=== PATIENT | male | born 1965 | race Caucasian/White ===

== ENCOUNTER 2023-07-12 16:15 | Outpatient (CLI) | payer OTHER, SELFPAY ==
--- NOTE | ~2023-07-12 | XR_ITS ---
EXAM: XR toe 1st RT min 2V DATE: 07/12/2023 16:36 HISTORY: Diabetes mellitus due to underlying condition; [facility] . COMPARISON: X-ray foot same date. FINDINGS: Normal mineralization. No fracture or dislocation. No lytic or blastic lesion. Moderate sc attered degenerative change. No erosion or periosteal change. Great toe soft tissue swelling. IMPRESSION: No radiographic evidence of osteomyelitis. Consider MRI of the foot or toes without and w ith contrast depending on the areas of clinical concern. Reviewed, dictated and finalized at location K. ER MACHINE OPERATOR IMPRESSION: No radiographic evidence of osteomyelitis. Consider MRI of the foot or toes without and with contrast depending on the areas of clinical concern.
== END 2023-07-12 16:16 | disposition home or self-care (01) ==
PROVIDERS: PCP Internal Medicine; Visit Provider Nurse Practitioner
DX: E08.621 Diabetes mellitus due to underlying condition with foot ulcer (principal); L97.519 Non-pressure chronic ulcer of other part of right foot with unspecified severity
CPT/HCPCS: 73630; 73660; 99215; G0463

== ENCOUNTER 2023-07-19 08:52 | Inpatient (IN) | payer OTHER, SELFPAY ==
[2023-07-19] VITALS (8 sets, daily range): BP systolic 116–169; BP diastolic 80–90; PULSE 76–121; RESP 14–30; TEMP 36.4–37.1; O2SAT 96–100
--- NOTE | ~2023-07-19 | US_ITS ---
EXAMINATION: US arterial ankle brachial ind DATE: 07/23/2023 10:29 INDICATION: Diabetic foot wound. TECHNIQUE: Segmental pressures and plethysmographic and Doppler waveforms of the brachial and lower e xtremity arteries were obtained. COMPARISON: None. FINDINGS: Right and left brachial artery pressures of 135 mm Hg and 139 mm Hg, respectively, are concordant (no rmal difference <= 30 mmHg). The right ankle-brachial index (TOBY) is 1.47 (normal >= 0.9-1.0). The right great toe-brachial index (TBI) is unable to be obtained due to ulceration with bandaging about the right great toe (normal >= 0.65). Arterial Doppler waveforms are triphasic with brisk systolic upstrokes at both right posterior tibial and dorsalis pedis arteries. The left TOBY is 1.45. The left TBI is 1.00. Arterial Doppler waveforms are triphasic at the left post erior tibial artery and biphasic at the left dorsalis pedis artery, both with brisk systolic upstroke s. IMPRESSION: 1. No significant arterial occlusive disease to either lower limb with normal bilateral ABIs and left TBI. Right TBI unable to be obtained due to ulceration and bandaging material at the right great toe . Reviewed, dictated and finalized at location B. RONMENT FRIENDLY LANDSCAPE DESIGNER IMPRESSION: 1. No significant arterial occlusive disease to either lower limb with normal b ilateral ABIs and left TBI. Right TBI unable to be obtained due to ulceration a nd bandaging material at the right great toe.
--- NOTE | ~2023-07-19 | XR_ITS ---
EXAMINATION: XR chest 1V portable INDICATION: Shortness of breath TECHNIQUE: Portable AP chest at 1651 hours COMPARISON: 01/03/2018 FINDINGS: There are minimal airspace opacities of the left lung base. A small left pleural effusion i s suggested. There is no pneumothorax. There are subtle bilateral perihilar opacities. The cardiomedi astinal silhouette is normal. IMPRESSION: 1. Subtle bilateral perihilar opacities and airspace opacities of the left lung base, consistent with atelectasis versus pneumonia versus pulmonary edema. 2. Possible small left pleural effusion. Reviewed, dictated and finalized at location F. DED BAND ASSEMBLER
--- NOTE | ~2023-07-19 | XR_ITS ---
EXAMINATION: XR toe 1st RT min 2V INDICATION: Swelling and infection of the right first toe TECHNIQUE: Three views of the right first toe are obtained. COMPARISON: 07/12/2023 FINDINGS: There is soft tissue swelling of the first toe. There is osteopenia in the proximal aspect of the first distal phalanx with possible associated transverse fracture. There is moderate osteoarth ritis of the first interphalangeal joint. IMPRESSION: 1. Findings suggestive of osteomyelitis of the first distal phalanx with possible nondisplaced transv erse fracture. Reviewed, dictated and finalized at location B. NING DESIGNER IMPRESSION: 1. Findings suggestive of osteomyelitis of the first distal phalanx with possib le nondisplaced transverse fracture.
--- NOTE | ~2023-07-19 | XR_ITS ---
EXAMINATION: XR chest 1V portable INDICATION: Changing oxygen requirements TECHNIQUE: Portable AP chest at 1755 hours COMPARISON: 1651 hours FINDINGS: There are increasing bilateral perihilar opacities. Left basilar airspace opacities are not significantly changed. No definite pleural effusion or pneumothorax identified. The cardiomediastina l silhouette is stable. IMPRESSION: 1. Increasing bilateral perihilar opacities and stable left basilar airspace opacities, possibly wors ening pulmonary edema versus atelectasis versus pneumonia. Reviewed, dictated and finalized at location F. Y MANAGER IMPRESSION: 1. Increasing bilateral perihilar opacities and stable left basilar airspace op acities, possibly worsening pulmonary edema versus atelectasis versus pneumonia .
--- NOTE | 2023-07-19 09:22 | ED.WOUNDLAC ---
HPI - Wound/Laceration General Chief Complaint: Wound/Laceration <Althea Corley PA-C - Last Filed: 07/19/23 15:44> Stated Complaint: foot wound <CARLOS Calderon Last Filed: 07/19/23 15:44> Time Seen by Provider: 07/19/23 08:59 <CARLOS Calderon Last Filed: 07/19/23 15:44> Source: patient and old records reviewed <CARLOS Calderon Last Filed: 07/19/23 15:44> Mode of arrival: ambulatory <CARLOS Calderon Last Filed: 07/19/23 15:44> Limitations: no limitations <CARLOS Calderon Last Filed: 07/19/23 15:44> History of Present Illness HPI narrative: Patient is a 57-year-old male, with past medical history of type 2 diabetes, Factor V Leiden on Xarelto, who presents the ED with report of wound to his right 1st toe. Patient reports he began seeing wound care for a wound to the plantar aspect of his right 1st toe last Wednesday. He has also seen his primary care doctor for this and was started on Keflex last week. Patient states he was unable to keep the antibiotics down this week, reporting he developed vomiting any time he took the medication. States wound has continued to worsen, become increasingly red, swollen, has had sanguinous drainage. C/o pain to toe. Sent from ED from wound care today for further evaluation. Denies pus-like drainage. Denies fevers. Denies numbness/tingling. States his sugars have been around 120. <CARLOS Calderon Last Filed: 07/19/23 15:44> Related Data Home Medications: Home Medications Medication Instructions Recorded Confirmed aspirin 81 mg tablet,delayed 81 mg PO DAILY 05/01/19 07/12/23 release (Adult Aspirin Regimen) omeprazole magnesium 20 mg 20 mg PO DAILY 05/01/19 07/12/23 tablet,delayed release (Prilosec OTC) multivitamin,ft-idnb-ysaptftx 1 tablet PO DAILY 05/02/19 07/12/23 (Complete Multivitamin tablet) potassium gluconate 595 mg (99 mg) 595 mg PO DAILY 07/07/23 07/12/23 tablet <Althea Corley PA-C - Last Filed: 07/19/23 15:44> Allergies/Adverse Reactions: Allergies Allergy/AdvReac Type Severity Reaction Status Date / Time cephalexin [From Keflex] AdvReac Vomiting Verified 07/19/23 11:19 <Althea Corley PA-C - Last Filed: 07/19/23 15:44> Review of Systems Review of Systems: CONSTITUTIONAL: Denies fever, chills, or sweats. CARDIOVASCULAR: Denies chest pain. RESPIRATORY: Denies dyspnea. GASTROINTESTINAL: See HPI SKIN: See HPI MUSCULOSKELETAL: See HPI NEUROLOGIC: Denies tingling, numbness, or weakness. <Althea Corley PA-C - Last Filed: 07/19/23 15:44> All systems reviewed & are unremarkable except as noted in HPI and below <Althea Corley PA-C - Last Filed: 07/19/23 15:44> [facility] Past Medical History Medical History: Medical History Diabetes mellitus Essential (primary) hypertension Factor 5 Leiden mutation, heterozygous Hx of pulmonary embolus Hyperglycemia Morbid obesity due to excess calories Rheumatoid arthritis <Althea Corley PA-C - Last Filed: 07/19/23 15:44> Surgical History Surgical History: Surgical History History of tonsillectomy <Althea Corley PA-C - Last Filed: 07/19/23 15:44> Family History Family History: Family History Father Pharyngeal malignant neoplasm Mother Hypertension Carcinoma of colon Chronic heart failure not affecting current episode of care Osteoarthritis <Althea Corley PA-C - Last Filed: 07/19/23 15:44> Social History Social History: Social History Social History: caffeine-none Smoking status: Never smoker Alcohol intake: current Drinks per wee
[2023-07-19 10:48] LABS: Basophils Absolute Auto 0.1 K/mm3 (0.0-0.1); Basophils Percent Auto 0.8 % (0.2-1.2); Eosinophils Percent Auto 0.1 % (0-4.4); Hematocrit 41.8 % (42.0-52.0); Hemoglobin 14.1 g/dL (14.0-18.0); Immature Granulocyte Absolute 0.03 K/mm3 (0.00-0.031); Immature Granulocyte Percent A 0.3 % (0-0.5); Lymphocytes Absolute Auto 1.15 K/mm3 (0.9-3.2); Lymphocytes Percent Auto 10.4 % (18.3-44.2); Mean Corpuscular HGB Conc 33.7 g/dl (32-36); Mean Corpuscular Hemoglobin 33.3 pg (26-34); Mean Corpuscular Volume 98.8 fl (80-100); Mean Platelet Volume 9.9 fl (7.4-10.4); Monocytes Absolute Auto 0.8 K/mm3 (0.1-0.6); Monocytes Percent Auto 7.2 % (2.6-8.5); Neutrophils Percent Auto 81.2 % (45.5-73.1); Platelet Count Result 338 k/mm3 (150-375); Red Blood Count 4.23 M/mm3 (4.6-6.20); Red Cell Distribution Width 12.1 % (11.5-14.5); White Blood Count 11.1 K/mm3 (4.5-10.0)
[2023-07-19] MEDS: SODIUM CHLORIDE 0.9% IV 1,000 ML 999 ML IV CONT ×2 (10:48→12:00)
[2023-07-19] MEDS: MORPHINE SULFATE (*CRX) 4 MG/ML INJ IV PUSH ×5 (10:49→23:17)
[2023-07-19] MEDS: ONDANSETRON INJ 4 MG/2 ML VIAL IV PUSH ×3 (10:49→19:48)
[2023-07-19 11:02] LABS: Lactic Acid Reflex 2.3 mmol/L (0.7-2.0)
[2023-07-19 11:12] LABS: Erythrocyte Sedimentation Rate 51 mm/hr (0-20)
[2023-07-19 11:14] LABS: Alanine Aminotransferase 52 U/L (6-50); Albumin Level 4.8 g/dL (3.5-5.1); Alkaline Phosphatase 95 U/L (38-126); Anion Gap 20 mmol/L (8-16); Aspartate Amino Transferase 88 U/L (17-59); Bilirubin,Total 1.6 mg/dL (0.2-1.3); Blood Urea Nitrogen 20 mg/dL (9-20); CRP 4.4 mg/dL (<1.0); Calcium 9.8 mg/dL (8.4-10.2); Carbon Dioxide 19 mmol/L (22-30); Chloride 90 mmol/L (98-107); Estimated CRCL calculation 110 ml/min; Estimated Glomerular Filt Rate > 60; Glucose 165 mg/dL (65-110); Potassium 6.6 mmol/L (3.4-5.0); Sodium 129 mmol/L (137-145)
[2023-07-19] MEDS: CEFEPIME 2 GM/NS 50 ML 2 GM/50 ML BAG IVPB ×2 (11:16→22:01)
--- NOTE | 2023-07-19 11:17 | ECG_ITS ---
Measurements Intervals [place] Rate: 120 P: 55 [place]: 191 QRS: -25 QRSD: 90 T: 63 QT: 273 QTc: 386 Interpretive Statements SINUS TACHYCARDIA LEFTWARD AXIS SUSPECT PREVIOUS ANTEROSEPTAL MA ABNORMAL ECG NO PREVIOUS ECG AVAILABLE FOR COMPARISON Electronically Signed On 07-19-2023 18:25:43 PHYSICAL THERAPY ASSISTANT by Amauri Nichols M.D.
[2023-07-19] MEDS: INSULIN HUMAN REGULAR (*BKC) 100 UNITS/ML 10 UNITS IV PUSH ×2 (11:58→16:14)
[2023-07-19] MEDS: CALCIUM GLUC 1,000 MG/NS 50 ML 1,000 MG/50 ML BAG 100 MG IVPB (12:00)
[2023-07-19] MEDS: SODIUM BICARBONATE 8.4% 50 MEQ/50 ML SYRINGE IV PUSH ×2 (12:03→16:14)
[2023-07-19] MEDS: DEXTROSE 50% 25 GM/50 ML SYRINGE IV PUSH ×2 (12:05→16:14)
[2023-07-19] MEDS: SODIUM ZIRCONIUM CYCLOSILICATE 10 GM POWD.PACK PO (12:10)
[2023-07-19] MEDS: metroNIDAZOLE 500 MG/ISO 100ML 500 MG/100 ML BAG 100 MG IVPB ×2 (12:13→19:48)
[2023-07-19 12:54] LABS: Hemoglobin A1C 6.1 % (<5.7)
--- NOTE | 2023-07-19 13:20 | PCWOUND ---
WOCN NOTE Patient was seen under outpatient wound center V# this morning 07/19/23. Full assessment noted there.
[2023-07-19] MEDS: VANCOMYCIN 1,250 MG/NS 250 ML 1,250 MG/250 ML BAG 166.67 MG IVPB ×2 (13:36→16:00)
[2023-07-19 13:46] LABS: Reflex Lactic Acid Yes or No Add Lactic
[2023-07-19 15:19] LABS: Lactic Acid 1.2 mmol/L (0.7-2.0)
--- NOTE | 2023-07-19 15:20 | PM.IMHP ---
H&P: HPI History of Present Illness Date/Time: 07/19/23 16:00 Chief Complaint: Right 1st toe wound. Narrative: This is a pleasant 57-year-old male with type 2 diabetes mellitus, hypertension, hyperlipidemia, factor 5 Leiden on rivaroxaban, and gastroesophageal reflux who presented to the emergency department from the wound clinic for evaluation of a right 1st toe wound. The patient provides the following history. He reports having a callused area on the right great toe for quite some time and about 2.5 weeks ago ?the skin and a blood blister formed.? Eventually the blister opened and he developed swelling about the toe. He saw his doctor and was prescribed Keflex which he has been taking however the last several days he has not been able to hold down the antibiotic as he has been vomiting almost as soon as he takes it. He was referred to wound clinic and he had a follow-up appointment with them today where he was found to have evidence of worsening infection. He denies fever but endorses sweats. He had loose stools earlier today. He has otherwise been feeling okay. No history of multidrug resistant organisms. In the ED: he was afebrile on arrival. He has periods of tachycardia but that seems to correlate with anxiety. Labs were significant for a WBC count of 11.1, ESR 51, sodium 129, potassium 6.6, chloride 90, carbon dioxide 19, glucose 165, hemoglobin A1c 6.1, lactic acid 2.3, total bilirubin 1.6, AST 80, ALT 52, CRP 4.4. X-ray of the right 1st toe showed findings suggestive of osteomyelitis of the 1st distal phalanx with possible nondisplaced transverse fracture. He was treated appropriately for hyperkalemia, received an IV fluid bolus, and was started on vancomycin, metronidazole, and cefepime for treatment of diabetic foot wound. He is being admitted in this setting for further treatment. Review of Systems Review of Systems: Twelve systems were reviewed. No cold or flu symptoms. No chest pain or shortness of breath. He has had some loose stools. No history of multidrug resistant organisms or C diff. He believes his diabetes is pretty well controlled and hemoglobin A1c today was 6.1%. Except as documented, all other systems were reviewed and are negative. [facility] Past Medical History Medical History (Updated 07/19/23 @ 21:00 by Josette Young PA-C) Chronic anticoagulation Essential (primary) hypertension Factor 5 Leiden mutation, heterozygous Gastroesophageal reflux disease Morbid obesity due to excess calories Pulmonary emboli Type 2 diabetes mellitus Surgical History Surgical History History of tonsillectomy Family History Family History Father Pharyngeal malignant neoplasm Mother Hypertension Carcinoma of colon Chronic heart failure not affecting current episode of care Osteoarthritis Social History Social History (Updated 07/19/23 @ 20:57 by Josette Young PA-C) Social History: Surrogate medical decision maker: Cuate Bolanos, friend. Code status: Full code. Smoking status: Never smoker Alcohol intake: current Drinks per week: 2 Alcohol use details: socially- [place] Substance use: never Do You Feel Safe in your Home?: Yes Lack of Transportation: No Lack of Food: Never True Current Housing: I Have Housing Concerned About Future Housing: No Difficulty Paying Gas/Electric Bills: No Difficulty Paying for Meds: No Currently Unemployed: No Education: Master's Degree or Higher Difficulty w/ Childcare or Family Care: No Additional living arrangements comments: Lives in [place]. 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 Spiritual care concerns: No Meds Home Medications and Allergies Home Medications Medication Instructions Recorded Confirmed Type aspirin 81 mg tablet,delayed 81 m
[2023-07-19 15:22] LABS: Anion Gap 14 mmol/L (8-16); Blood Urea Nitrogen 20 mg/dL (9-20); Calcium 9.3 mg/dL (8.4-10.2); Carbon Dioxide 20 mmol/L (22-30); Chloride 95 mmol/L (98-107); Estimated CRCL calculation 136 ml/min; Estimated Glomerular Filt Rate > 60; Glucose 159 mg/dL (65-110); Potassium 6.4 mmol/L (3.4-5.0); Sodium 129 mmol/L (137-145)
[2023-07-19] MEDS: ALBUTEROL SULFATE NEB 2.5 MG/3 ML INH INHALATION (16:10)
--- NOTE | 2023-07-19 19:44 | ADMGEN ---
This patient, Marc Haddad, was admitted to [facility] Surg Room 324-01. Patient/family oriented to hospital policies and general routines including ID bracelet, bed and alarms, visiting hours, pain management, procedures, bathroom and other care routines, personal items, smoking policy, room service/diet, and visiting hours. Information on how to activate the Rapid Response Team has been discussed. Patient/Family are encouraged to report perceived risks to care and to ask questions if they do not understand what they are told or what they should do.
[2023-07-19 20:07] LABS: Glucose Point of Care 183 mg/dl (65-105)
[2023-07-19 20:28] LABS: Anion Gap 14 mmol/L (8-16); Blood Urea Nitrogen 19 mg/dL (9-20); Calcium 9.1 mg/dL (8.4-10.2); Carbon Dioxide 21 mmol/L (22-30); Chloride 94 mmol/L (98-107); Estimated CRCL calculation 136 ml/min; Estimated Glomerular Filt Rate > 60; Glucose 167 mg/dL (65-110); Potassium 5.6 mmol/L (3.4-5.0); Sodium 129 mmol/L (137-145)
[2023-07-19] MEDS: RIVAROXABAN 20 MG TABLET PO (21:43)
[2023-07-19] MEDS: buPROPion HCL SR (12 HR) 150 MG TAB PO (21:43)
[2023-07-19] MEDS: SODIUM CHLORIDE 0.9% IV 1,000 ML 150 ML IV CONT (21:43)
[2023-07-19] MEDS: hydrOXYzine HCL 25 MG TABLET PO (21:48)
[2023-07-19] MEDS: SIMVASTATIN 20 MG TABLET PO (22:06)
[2023-07-19] MEDS: VANCOMYCIN 1,500 MG/NS 500 ML 1,500 MG/500 ML BAG 250 MG IVPB (23:17)
[2023-07-20] VITALS (9 sets, daily range): BP systolic 127–151; BP diastolic 80–88; PULSE 98–113; RESP 18–20; TEMP 36.2–36.7; O2SAT 91–95
[2023-07-20] MEDS: MORPHINE SULFATE (*CRX) 4 MG/ML INJ IV PUSH ×8 (02:26→22:15)
[2023-07-20] MEDS: metroNIDAZOLE 500 MG/ISO 100ML 500 MG/100 ML BAG 100 MG IVPB ×3 (03:29→20:06)
[2023-07-20 06:51] LABS: Hematocrit 35.8 % (42.0-52.0); Hemoglobin 11.9 g/dL (14.0-18.0); Mean Corpuscular HGB Conc 33.2 g/dl (32-36); Mean Corpuscular Hemoglobin 33.6 pg (26-34); Mean Corpuscular Volume 101.1 fl (80-100); Mean Platelet Volume 10.1 fl (7.4-10.4); Platelet Count Result 208 k/mm3 (150-375); Red Blood Count 3.54 M/mm3 (4.6-6.20); White Blood Count 6.2 K/mm3 (4.5-10.0)
[2023-07-20 07:03] LABS: Alanine Aminotransferase 44 U/L (6-50); Albumin Level 4.2 g/dL (3.5-5.1); Alkaline Phosphatase 68 U/L (38-126); Anion Gap 8 mmol/L (8-16); Aspartate Amino Transferase 70 U/L (17-59); Bilirubin,Total 1.1 mg/dL (0.2-1.3); Blood Urea Nitrogen 15 mg/dL (9-20); Calcium 8.7 mg/dL (8.4-10.2); Carbon Dioxide 27 mmol/L (22-30); Chloride 95 mmol/L (98-107); Estimated CRCL calculation 136 ml/min; Estimated Glomerular Filt Rate > 60; Glucose 130 mg/dL (65-110); Magnesium 1.7 mg/dL (1.6-2.3); Potassium 4.7 mmol/L (3.4-5.0); Sodium 130 mmol/L (137-145)
--- NOTE | 2023-07-20 07:31 | PM.CNOR ---
Assessment and Plan Assessment and plan (1) Diabetic infection of right foot: Code(s): E11.628 - Type 2 diabetes mellitus with other skin complications; L08.9 - Local infection of the skin and subcutaneous tissue, unspecified Status: Acute (2) Osteomyelitis of great toe of right foot: Code(s): M86.9 - Osteomyelitis, unspecified Status: Acute Assessment and Plan: New patient evaluation for chief complaint right hallux infection. History, physical exam and radiographs reviewed with the patient. Osteomyelitis distal phalanx with soft tissue surrounding infection of the hallux. Discussed the condition, nature, etiology and course of natural history with the patient. Treatment options including surgical and nonoperative treatment were reviewed. Risks and benefits of each as well as alternatives reviewed. The patient's questions were answered. Conservative treatment Wound care. started on IV antibiotics. Recommend debridement of osteomyelitis right hallux which will require amputation of the distal portion. Proceed when medically stable. Discussed nonoperative and operative treatment options with the patient. Risks and benefits of each as well as alternatives were reviewed. All of the patient's questions were answered. The risks of surgery reviewed including but not limited to: Neurovascular damage, wound complication, infection, blood clot, pulmonary embolus, stroke, myocardial infarction, and anesthetic risks up to and including . Continued pain and possible dysfunction were explained. Specific risks of the procedure including later recurrence of deformity. No guarantees were offered. If hardware used, discussed risk of failure/ breakage and possible need for removal. If complications occur, the patient understands the need for further treatment, possible further surgery. Patient verbalizes understanding and wishes to proceed. PLAN: debridement right hallux with amputation. (3) Factor 5 Leiden mutation, heterozygous: Code(s): D68.51 - Activated protein C resistance Status: Acute Assessment and Plan: On chronic anticoagulation History of Present Illness HPI Consult date: 07/20/23 Requesting physician: Althea Corley PA-C Chief complaint: Osteomyelitis R 1st Toe/DM/Hyperkalemia/Hyponatrem Narrative: 57-year-old with diabetes, peripheral neuropathy, lower extremity varicose veins worsening right hallux infection over the past week. Right hallux swelling developed over the past week. Difficulty to tolerating oral antibiotics. Was evaluated by Wound Care yesterday and referred to the emergency room as his toe was worsening. Minimal pain. Current symptoms: Reports drainage and ulceration Location: toe Duration: 4-7 days Pain scale (0-10): 1 Review of Systems Constitutional: Constitutional: Denies fever(s) Eyes: Eyes: Denies blurry vision ENT: Reports Normal hearing present Cardiovascular: Cardiovascular: Denies chest pain and Denies dyspnea Respiratory: Respiratory: Denies dyspnea and Denies wheezing Gastrointestinal: Gastrointestinal: Denies abdominal pain Genitourinary: Genitourinary: Denies urinary urgency Musculoskeletal: Musculoskeletal: Reports as per HPI and Denies numbness Integumentary/Breasts: Skin/Breast: Denies changing lesions and Denies sores Neurologic: Reports Normal hearing present, Denies behavioral changes, Denies confusion, Denies numbness and Denies convulsions Psychiatric: Psychiatric: Denies behavioral changes, Denies confusion and Denies hallucinations Endocrine: Endocrine: Denies heat intolerance Hematologic/Lymphatic: Hematologic/Lymphatic: Denies easy bleeding Allergic/Immunologic: Allergic/Immunologic: Denies wheezing PMFSH Past Medical History Medical History Chronic anticoagulation Essential (primary) hypertension Factor 5 Leiden mutation, heterozygous Gastro
[2023-07-20] MEDS: SODIUM CHLORIDE 0.9% IV 1,000 ML 150 ML IV CONT (07:50)
[2023-07-20] MEDS: ONDANSETRON INJ 4 MG/2 ML VIAL IV PUSH (07:51)
[2023-07-20 07:56] LABS: Glucose Point of Care 150 mg/dl (65-105)
[2023-07-20] MEDS: ASPIRIN 81 MG ENTERIC TABLET PO (08:52)
[2023-07-20] MEDS: PANTOPRAZOLE 40 MG TABLET PO (08:52)
[2023-07-20] MEDS: buPROPion HCL SR (12 HR) 150 MG TAB PO ×2 (10:21→20:06)
[2023-07-20 11:47] LABS: Glucose Point of Care 151 mg/dl (65-105)
[2023-07-20] MEDS: CEFEPIME 2 GM/NS 50 ML 2 GM/50 ML BAG IVPB ×2 (13:49→22:15)
[2023-07-20] MEDS: VANCOMYCIN 1,500 MG/NS 500 ML 1,500 MG/500 ML BAG 250 MG IVPB (13:51)
--- NOTE | 2023-07-20 15:56 | PM.IMPN ---
Progress Note: A&P Assessment and Plan (1) Sepsis: Code(s): A41.9 - Sepsis, unspecified organism Status: Acute Assessment and Plan: -sepsis without shock -leukocytosis and lactic acidosis resolved (2) Cellulitis of great toe of right foot: Code(s): L03.031 - Cellulitis of right toe Status: Acute Assessment and Plan: -continue antibiotics. Follow-up blood cultures and wound cultures. (3) Osteomyelitis of great toe of right foot: Code(s): M86.9 - Osteomyelitis, unspecified Status: Acute Assessment and Plan: -follow-up cultures and tailor antibiotic plan accordingly. -currently on metronidazole vancomycin and cefepime. (4) Diabetic infection of right foot: Code(s): E11.628 - Type 2 diabetes mellitus with other skin complications; L08.9 - Local infection of the skin and subcutaneous tissue, unspecified Status: Acute Assessment and Plan: -NPO midnight. Go for debridement on 07/20 at 2:30 p.m. -appreciate orthopedic recommendations. (5) Type 2 diabetes mellitus: Code(s): E11.9 - Type 2 diabetes mellitus without complications Status: Acute Assessment and Plan: -hemoglobin A1c 6.1% on 07/19/2023 -sugars controlled -continue Accu-Cheks with hypoglycemia protocol and insulin sliding scale. (6) Lactic acidosis: Code(s): E87.20 - Acidosis, unspecified Status: Acute Assessment and Plan: Resolved (7) Gastroesophageal reflux disease: Code(s): K21.9 - Gastro-esophageal reflux disease without esophagitis Status: Acute Assessment and Plan: Continue Protonix (8) Hyponatremia: Code(s): E87.1 - Hypo-osmolality and hyponatremia Status: Acute Assessment and Plan: -slightly improved. Continue to monitor (9) Hyperkalemia: Code(s): E87.5 - Hyperkalemia Status: Acute Assessment and Plan: -resolved (10) Factor 5 Leiden mutation, heterozygous: Code(s): D68.51 - Activated protein C resistance Status: Acute Assessment and Plan: -on heparin GTT. Transition back to rivaroxaban when procedure completed. Aspirin on hold as well (11) Essential (primary) hypertension: Code(s): I10 - Essential (primary) hypertension Status: Acute Assessment and Plan: -controlled. -home dose lisinopril 20 mg daily on hold. (12) Elevated LFTs: Code(s): R79.89 - Other specified abnormal findings of blood chemistry Status: Acute Assessment and Plan: -trending down. Continue to monitor Plan This is a 57-year-old male with a history of obesity, [id number] type 2 diabetes mellitus, hypertension, hyperlipidemia, factor 5 laden and history of PE on rivaroxaban, GERD, presenting from the wound clinic for evaluation of a right foot wound. He is found to have osteomyelitis with the right 1st distal phalanx. Admitted on 07/19 for further management. FEN: Normal saline 100 cc/hour. Cardiac diabetic diet and NPO at midnight. GI prophylaxis: Continue home dose Protonix DVT prophylaxis: Heparin GTT started. Transition to his home dosing rivaroxaban postprocedure when okay with Orthopedic surgery. Lines: Peripheral IV Code Status: Full code Dispo: Stable Subjective Date/time seen: 07/20/23 15:56 Interval history: No acute overnight events. The patient reports good pain control with the morphine p.r.n.. He otherwise reports feeling weak. Review of Systems Review of Systems: All systems reviewed & are unremarkable except as noted in HPI and below (Subjective) Exam Const: General: comfortable and no acute distress Other: A&O x4. Obese. Eyes: Pupils: Equal, round and reactive pupils present Neck: Neck: supple Resp: Effort & Inspection: normal respiratory effort Auscultation: clear to auscultation bilaterally Cardio: Rate: regular rate Rhythm: regular rhythm GI: GI Palp: Yes Soft to palpation and
[2023-07-20] MEDS: SODIUM CHLORIDE 0.9% IV 1,000 ML 100 ML IV CONT (16:28)
[2023-07-20 17:09] LABS: Glucose Point of Care 124 mg/dl (65-105)
[2023-07-20 18:56] LABS: INR 1.5; Partial Thromboplastin Time 43.3 SECONDS (22.3-36.8); Prothrombin Time 19.4 Seconds (11.1-14.7)
[2023-07-20 19:58] LABS: Glucose Point of Care 152 mg/dl (65-105)
[2023-07-20] MEDS: HEPARIN SOD/D5W 100 UNITS/ML 25,000 UNITS/250 ML BAG 15 UNITS IV CONT (20:05)
[2023-07-20] MEDS: SIMVASTATIN 20 MG TABLET PO (20:06)
[2023-07-20] MEDS: hydrOXYzine HCL 25 MG TABLET PO (20:45)
[2023-07-20 23:49] LABS: Vancomycin Trough 12.6 ug/mL (10.0-20.0)
[2023-07-21] VITALS (22 sets, daily range): BP systolic 99–159; BP diastolic 70–93; PULSE 91–134; RESP 16–34; TEMP 36.4–37.4; O2SAT 84–100; BMI 40.9
[2023-07-21] MEDS: MORPHINE SULFATE (*CRX) 4 MG/ML INJ IV PUSH ×5 (00:16→10:25)
[2023-07-21] MEDS: VANCOMYCIN 1,750 MG/NS 500 ML 1,750 MG/500 ML BAG 250 MG IVPB ×2 (00:38→13:57)
[2023-07-21 02:30] LABS: Basophils Absolute Auto 0.1 K/mm3 (0.0-0.1); Basophils Percent Auto 1.2 % (0.2-1.2); Eosinophils Absolute Auto 0.1 K/mm3 (0-0.3); Eosinophils Percent Auto 2.4 % (0-4.4); Hematocrit 33.1 % (42.0-52.0); Hemoglobin 10.9 g/dL (14.0-18.0); Immature Granulocyte Absolute 0.01 K/mm3 (0.00-0.031); Immature Granulocyte Percent A 0.2 % (0-0.5); Lymphocytes Absolute Auto 1.42 K/mm3 (0.9-3.2); Lymphocytes Percent Auto 28.6 % (18.3-44.2); Mean Corpuscular HGB Conc 32.9 g/dl (32-36); Mean Corpuscular Hemoglobin 33.1 pg (26-34); Mean Corpuscular Volume 100.6 fl (80-100); Mean Platelet Volume 9.6 fl (7.4-10.4); Monocytes Absolute Auto 0.4 K/mm3 (0.1-0.6); Monocytes Percent Auto 8.9 % (2.6-8.5); Neutrophils Absolute Auto 2.9 K/mm3 (1.3-6.7); Neutrophils Percent Auto 58.7 % (45.5-73.1); Platelet Count Result 162 k/mm3 (150-375); Red Blood Count 3.29 M/mm3 (4.6-6.20); Red Cell Distribution Width 11.9 % (11.5-14.5)
[2023-07-21 02:40] LABS: Anion Gap 7 mmol/L (8-16); Blood Urea Nitrogen 10 mg/dL (9-20); Calcium 8.2 mg/dL (8.4-10.2); Carbon Dioxide 26 mmol/L (22-30); Chloride 99 mmol/L (98-107); Estimated CRCL calculation 136 ml/min; Estimated Glomerular Filt Rate > 60; Glucose 123 mg/dL (65-110); Magnesium 1.6 mg/dL (1.6-2.3); Potassium 4.4 mmol/L (3.4-5.0); Sodium 132 mmol/L (137-145)
[2023-07-21 02:58] LABS: Partial Thromboplastin Time 34.2 SECONDS (22.3-36.8)
[2023-07-21] MEDS: HEPARIN SODIUM 5,000 UNITS/ML VIAL 9000 UNITS IV PUSH (03:15)
[2023-07-21] MEDS: metroNIDAZOLE 500 MG/ISO 100ML 500 MG/100 ML BAG 100 MG IVPB ×3 (03:16→21:03)
[2023-07-21] MEDS: SODIUM CHLORIDE 0.9% IV 1,000 ML 100 ML IV CONT ×2 (04:47→12:40)
[2023-07-21 08:06] LABS: Glucose Point of Care 129 mg/dl (65-105)
--- NOTE | 2023-07-21 09:05 | WPDHPUPDATE1 ---
History and Physical Update Update Date/Time: 07/21/23 09:05 History and Physical has been reviewed, including an updated exam of the patient. There are NO changes in the patient's condition. Risks, benefits, and alternatives have been discussed and questions answered. Patient agrees to proceed with procedure.
[2023-07-21 09:43] LABS: Partial Thromboplastin Time 66.5 SECONDS (22.3-36.8)
--- NOTE | 2023-07-21 09:53 | PM.IMPN ---
Progress Note: A&P Assessment and Plan (1) Sepsis: Code(s): A41.9 - Sepsis, unspecified organism Status: Acute Assessment and Plan: -sepsis without shock -leukocytosis and lactic acidosis resolved (2) Cellulitis of great toe of right foot: Code(s): L03.031 - Cellulitis of right toe Status: Acute Assessment and Plan: -continue antibiotics. Follow-up blood cultures and wound cultures. (3) Osteomyelitis of great toe of right foot: Code(s): M86.9 - Osteomyelitis, unspecified Status: Acute Assessment and Plan: -follow-up cultures and tailor antibiotic plan accordingly. -currently on metronidazole vancomycin and cefepime. (4) Diabetic infection of right foot: Code(s): E11.628 - Type 2 diabetes mellitus with other skin complications; L08.9 - Local infection of the skin and subcutaneous tissue, unspecified Status: Acute Assessment and Plan: -NPO midnight, go for debridement on 07/21 at 2:30 p.m. -appreciate orthopedic recommendations. (5) Type 2 diabetes mellitus: Code(s): E11.9 - Type 2 diabetes mellitus without complications Status: Acute Assessment and Plan: -hemoglobin A1c 6.1% on 07/19/2023 -sugars controlled -continue Accu-Cheks with hypoglycemia protocol and insulin sliding scale. (6) Lactic acidosis: Code(s): E87.20 - Acidosis, unspecified Status: Acute Assessment and Plan: Resolved (7) Gastroesophageal reflux disease: Code(s): K21.9 - Gastro-esophageal reflux disease without esophagitis Status: Acute Assessment and Plan: Continue Protonix (8) Hyponatremia: Code(s): E87.1 - Hypo-osmolality and hyponatremia Status: Acute Assessment and Plan: -slightly improved. Continue to monitor (9) Hyperkalemia: Code(s): E87.5 - Hyperkalemia Status: Acute Assessment and Plan: -resolved (10) Factor 5 Leiden mutation, heterozygous: Code(s): D68.51 - Activated protein C resistance Status: Acute Assessment and Plan: -on heparin GTT. Transition back to rivaroxaban when procedure completed. Aspirin on hold as well (11) Essential (primary) hypertension: Code(s): I10 - Essential (primary) hypertension Status: Acute Assessment and Plan: -controlled. -home dose lisinopril 20 mg daily on hold. (12) Elevated LFTs: Code(s): R79.89 - Other specified abnormal findings of blood chemistry Status: Acute Assessment and Plan: -trending down. Continue to monitor Plan FEN: Normal saline 100 cc/hour. Cardiac/diabetic diet and NPO for OR 07/21 GI prophylaxis: Continue home dose Protonix DVT prophylaxis: Heparin GTT started. Transition to his home dosing rivaroxaban postprocedure when okay with Orthopedic surgery. Lines: Peripheral IV Code Status: Full code Dispo: Stable Subjective Date/time seen: 07/21/23 09:53 Interval history: 57-year-old male with a history of obesity, syo-oqnarff-llcnwlagd type 2 diabetes mellitus, hypertension, hyperlipidemia, factor 5 laden and history of PE on rivaroxaban, GERD, presenting from the wound clinic for evaluation of a right foot wound. He is found to have osteomyelitis with the right 1st distal phalanx. Admitted on 07/19 for further management. No overnight events noted. No chest pain or shortness of breath. No nausea, vomiting or diarrhea. No fevers or chills. Review of Systems Review of Systems: 12 point review of systems was assessed and was negative except as noted in the HPI Exam Narrative: General: No acute distress, alert and oriented per baseline HEENT: Atraumatic, normocephalic, mucous membranes moist CV: Regular rate and rhythm, S1, S2 Lungs: Clear to auscultation bilaterally, no rales or crackles noted, no wheezes, good air entry Abdomen: Soft, nontender, nondistended Extremitie
[2023-07-21] MEDS: CEFEPIME 2 GM/NS 50 ML 2 GM/50 ML BAG IVPB ×2 (10:23→23:28)
[2023-07-21] MEDS: buPROPion HCL SR (12 HR) 150 MG TAB PO ×2 (10:24→21:10)
[2023-07-21 11:41] LABS: Glucose Point of Care 132 mg/dl (65-105)
[2023-07-21] MEDS: LACTATED RINGERS 1,000 ML 30 ML IV CONT ×2 (13:40→15:45)
--- NOTE | 2023-07-21 14:14 | WPDANESEPPF ---
Anes - Initial Pre Proc Eval Procedure: Operation Date: 07/21/23 14:30 Proposed Procedures p Debridement Right Hallux with Amputation - Lamin Jackson MD Date/Time: 07/21/23 14:14 Surgeon: Marva Mcguire MD Pre Op Diagnosis: Osteomyelitis R 1st Toe/DM/Hyperkalemia/Hyponatrem Patient Data Age: 57 Gender: M Height: 1.91 m Weight: 150 kg Last Vital Signs Temp 36.6 C 07/21/23 06:25 Pulse 95 07/21/23 06:25 Resp 20 07/21/23 06:25 BP 159/93 H 07/21/23 06:25 Pulse Ox 93 07/21/23 06:25 O2 Del Method Room Air 07/20/23 08:00 Allergies Allergy/AdvReac Type Severity Reaction Status Date / Time cephalexin [From Keflex] AdvReac Vomiting Verified 07/19/23 11:19 Home Medications Medication Instructions Recorded Confirmed Type aspirin 81 mg tablet,delayed 81 mg PO DAILY 05/01/19 07/19/23 History release (Adult Aspirin Regimen) omeprazole magnesium 20 mg 20 mg PO DAILY 05/01/19 07/19/23 History tablet,delayed release (Prilosec OTC) multivitamin,rx-cfsl-oroxatbj 1 tablet PO DAILY 05/02/19 07/19/23 History (Complete Multivitamin tablet) simvastatin 20 mg tablet 20 mg PO DAILY #90 tabs 10/05/22 07/19/23 Rx metformin 1,000 mg tablet 1,000 mg PO BID #180 tabs 01/08/23 07/19/23 Rx potassium gluconate 595 mg (99 mg) 595 mg PO DAILY 07/07/23 07/19/23 History tablet tirzepatide 7.5 mg/0.5 mL 7.5 mg (0.5 mL) subcut WEEKLY #2 mL 07/07/23 07/19/23 Rx subcutaneous pen injector (Maneunluther) bupropion HCl 150 mg tablet,12 hr 150 mg PO BID 07/19/23 07/19/23 History sustained-release hydroxyzine HCl 25 mg tablet 25 mg PO BID PRN Anxiety 07/19/23 07/19/23 History lisinopril 20 mg tablet 20 mg PO DAILY 07/19/23 07/19/23 History rivaroxaban 20 mg tablet (Xarelto) 20 mg PO DAILY 07/19/23 07/19/23 History Laboratory Tests 07/20/23 07/20/23 07/20/23 16:28 17:59 19:53 WBC RBC Hgb Hct MCV MCH MCHC RDW Plt Count MPV Immature Gran % (Auto) Neut % (Auto) Lymph % (Auto) [place] % (Auto) Eos % (Auto) Baso % (Auto) Lymph # (Auto) [place] # (Auto) Eos # (Auto) Baso # (Auto) Abs Immat Gran (auto) Absolute Neuts (auto) Absolute Nucleated RBC Nucleated RBC % PT 19.4 H Seconds (11.1-14.7) INR 1.5 APTT 43.3 H SECONDS (22.3-36.8) Sodium Potassium Chloride Carbon Dioxide Anion Gap BUN Creatinine Estim Creat Clear Calc Estimated GFR Glucose POC Capillary Glucose 124 H mg/dl 152 H mg/dl (65-105) (65-105) Calcium Magnesium Vancomycin Trough 07/20/23 07/21/23 07/21/23 22:57 02:25 07:38 WBC 5.0 K/mm3 (4.5-10.0) RBC 3.29 L M/mm3 (4.6-6.20) Hgb 10.9 L g/dL (14.0-18.0) Hct 33.1 L % (42.0-52.0) MCV 100.6 H fl (80-100) MCH 33.1 pg (26-34) MCHC 32.9 g/dl (32-36) RDW 11.9 % (11.5-14.5) Plt Count 162 k/mm3 (150-375) MPV 9.6 fl (7.4-10.4) Immature Gran % (Auto) 0.2 % (0-0.5) Neut % (Auto) 58.7 % (45.5-73.1) Lymph % (Auto) 28.6 % (18.3-44.2) [place] % (Auto) 8.9 H % (2.6-8.5) Eos % (Auto) 2.4 % (0-4.4) Baso % (Auto) 1.2 % (0.2-1.2) Lymph # (Auto) 1.42 K/mm3 (0.9-3.2) [place] # (Auto) 0.4 K/mm3 (0.1-0.6) Eos # (Auto) 0.1 K/mm3 (0-0.3) Baso # (Auto) 0.1 K/mm3 (0.0-0.1) Abs Immat Gran (auto) 0.01 K/mm3 (0.00-0.031) Absolute Neuts (auto) 2.9 K/mm3 (1.3-6.7)
[2023-07-21] MEDS: BUPivacaine HCL 0.5% 10 ML AMP 20 ML INFILTRATE (15:22)
--- NOTE | 2023-07-21 15:58 | W.PM.PROC2 ---
Procedure Note - Detailed Date of Procedure 07/21/23 Pre-op Diagnosis Osteomyelitis R 1st Toe/DM/Hyperkalemia/Hyponatrem Post-op Diagnosis Same Procedure Performed Right hallux amputation, excisional debride diabetic ulcer right foot Surgeon Lamin Jackson MD Fleshing Machine Operator 1st assignment desk assistant Anesthesia General Indications 57-year-old with right hallux osteomyelitis and diabetic foot ulcer. Presents for operative treatment. Findings Osteomyelitis distal phalanx of the hallux. Plantar medial diabetic foot ulcer 2 x 2 cm with purulent drainage. Description of Procedure Patient identified in the preoperative holding. Informed consent given. Operative extremity marked. Patient received intravenous antibiotics. Patient brought to the operating room where underwent general anesthetic by anesthesia team. Positioned supine on operating room table. Time-out performed confirming the patient, site of the surgery and the plan. Right foot prepped and draped in usual sterile surgical fashion using Betadine prep solution. There was an ulcer over the dorsal medial aspect of the hallux which revealed full-thickness necrosis with exposed bone of the proximal phalanx. No ability to heal the wound and no soft tissue coverage of the bone, amputation of the hallux was indicated. Fifteen blade knife used to make fishmouth shaped incision at the base of the hallux. Hemostasis controlled with electrocautery. Interphalangeal Joint incised circumferentially with a 15 blade knife and hallux removed and passed off the table. Thorough irrigation done. Articular surface of the proximal phalanx removed with a rongeur and smoothed. Wound thoroughly irrigated again. Wound closed with 2 0 Vicryl interrupted suture for the deep tissue, 3 O Monocryl interrupted suture for the subcutaneous tissue and 3 O nylon interrupted sutures for the skin. plantar medial diabetic foot ulcer addressed. Ulcer noted distal end of the foot base of the hallux. Purulent drainage noted. 15 blade knife used to excise the skin, subcutaneous tissue, fascia and muscle that was devitalized are infected. [address] Wound irrigated with solution. Skin closed with 3-0 nylon interrupted suture. Wound measured 2 x 2 cm after debridement. Sterile dressings applied. Patient awoke from anesthesia, extubated and taken to the recovery room in stable condition. All sponge needle and instrument counts correct at the end the case. Estimated Blood Loss 5 Tourniquet Time Total Tourniquet Time: 25 Urine Output 225 Drains No Packing No Pathology Yes ( Right hallux) Complications None Condition Stable Disposition PACU [facility] Billing Surgery - Charge Forward: Surgery Billing ([id number], [id number] Q8)
[2023-07-21 16:05] LABS: Glucose Point of Care 123 mg/dl (65-105)
[2023-07-21] MEDS: MORPHINE SULFATE (*CRX) 4 MG/ML INJ 3 MG IV PUSH (16:52)
[2023-07-21] MEDS: FUROSEMIDE INJ 40 MG/4 ML VIAL 10 MG IV PUSH (16:53)
[2023-07-21 17:58] LABS: Alveolar/Arterial O2 Gradient 340.5 mmHg; Fractional Inspired Oxygen 60 %; HCO3 ABG 26.5 mEq/l (22.0-26.0); Oxygen Content ABG 11.6 %vol (16.0-22.0); PCO2 ABG 46.1 mmHg (35.0-45.0); PO2 FiO2 Ratio Arterial Blood 0.61 %; Total Hemoglobin 12.5 g/dL (12.0-18.0); pH ABG 7.378 (7.350-7.450)
[2023-07-21 18:00] LABS: Oxygen Saturation ABG 68.3 % (95.0-100.0); Oxyhemoglobin 66.3 % THb (90.0-100.0); PO2 ABG 36.6 mmHg (80.0-100.0)
[2023-07-21 18:01] LABS: Device HIGH FLOW NASAL CANN; Modified Allen's Test Pass; Site Drawn RIGHT RADIAL
--- NOTE | 2023-07-21 18:01 | PCRCNOTE ---
DWIGHT DRAWN, AWARE OF VENOUS SAMPLE.
[2023-07-21 18:02] LABS: Glucose Point of Care 119 mg/dl (65-105)
--- NOTE | 2023-07-21 19:03 | SUR.PHASEI ---
RN called Dr. Michelle in regards to O2 sats in PACU about 1550. He said he would come assess the patient but didn't think a Bipap was necessary. Patient's sats were about 88% on 12L Simple mask at times. Patient had a lot of secretions and was trying to clear them as he was waking up more in recovery. RN oral suctioned patient and had 15L simple mask on patient. RN tried patient on 6L NC and he was sating about 84%. Since RN got nowhere with anesthesia, she called the guest house manager about 1616. The guest house manager told RN since anesthesia wouldn't give the orders to call the patient's hospitalist. The guest house manager also agreed patient couldn't go back to room 324 with 02 sats at 84%. RN called Dr. Zimmerman at 1620 and told her the situation. She gave RN orders for Bipap and said a higher level of care under her would be fine if needed. About 1630 patient had a full on panic attack in recovery trying to clear his secretions. He said I can't breathe. OR staff came into recovery to help. Respiratory was called and they came shortly after. Patient is claustrophobic and refused the BIPAP. He couldn't tolerate the mask. Staff had the patient hold the AMBU bag to his face and his O2 sats improved. CHARLY Yang, called anesthesia to recovery STAT since this RN couldn't get through to Dr. Michelle at 1631. JEWEL Zelaya helped this RN. During this attempt to help the patient, Dr. Michelle did order a chest x-ray, 10mg of Lasix IV PUSH, and 3mg of morphine IV push. Patient tolerated high flow NC at 15L and was able to be weaned to 10L high flow NC before transferring to IMU. RN coordinated with Med Surg Kailee hyde; the guest house manager; and Dr. Zimmerman to receive further orders/help for this patient. This RN gave report to CHARLY Portillo. Critical ABG results were never called to this RN in PACU. RN reported that to floor RN and she said she would take care of it.
[2023-07-21 21:00] LABS: Glucose Point of Care 135 mg/dl (65-105)
[2023-07-21] MEDS: ACETAMINOPHEN 325 MG TABLET 650 MG PO (21:03)
[2023-07-21] MEDS: SIMVASTATIN 20 MG TABLET PO (21:10)
[2023-07-21] MEDS: fentaNYL CITRATE INJ (*CRX) 100 MCG/2 ML VIAL 12.5 MCG IV PUSH (23:50)
[2023-07-22] VITALS (14 sets, daily range): BP systolic 125–139; BP diastolic 72–87; PULSE 79–113; RESP 18–20; TEMP 36.3–36.6; O2SAT 92–95
[2023-07-22] MEDS: VANCOMYCIN 1,750 MG/NS 500 ML 1,750 MG/500 ML BAG 250 MG IVPB (02:27)
[2023-07-22] MEDS: fentaNYL CITRATE INJ (*CRX) 100 MCG/2 ML VIAL 12.5 MCG IV PUSH ×4 (02:27→11:44)
[2023-07-22] MEDS: SALINE 0.65% NAS SOLN 44 ML BTL 1 SPRAY NASAL (03:36)
[2023-07-22] MEDS: metroNIDAZOLE 500 MG/ISO 100ML 500 MG/100 ML BAG 100 MG IVPB ×2 (04:49→11:48)
[2023-07-22 05:36] LABS: Basophils Percent Auto 0.8 % (0.2-1.2); Eosinophils Absolute Auto 0.1 K/mm3 (0-0.3); Eosinophils Percent Auto 2.1 % (0-4.4); Hematocrit 32.5 % (42.0-52.0); Hemoglobin 10.7 g/dL (14.0-18.0); Immature Granulocyte Absolute 0.02 K/mm3 (0.00-0.031); Immature Granulocyte Percent A 0.4 % (0-0.5); Lymphocytes Absolute Auto 1.06 K/mm3 (0.9-3.2); Lymphocytes Percent Auto 21.8 % (18.3-44.2); Mean Corpuscular HGB Conc 32.9 g/dl (32-36); Mean Corpuscular Hemoglobin 34.2 pg (26-34); Mean Corpuscular Volume 103.8 fl (80-100); Mean Platelet Volume 9.9 fl (7.4-10.4); Monocytes Absolute Auto 0.5 K/mm3 (0.1-0.6); Monocytes Percent Auto 10.7 % (2.6-8.5); Neutrophils Absolute Auto 3.1 K/mm3 (1.3-6.7); Neutrophils Percent Auto 64.2 % (45.5-73.1); Platelet Count Result 158 k/mm3 (150-375); Red Blood Count 3.13 M/mm3 (4.6-6.20); White Blood Count 4.9 K/mm3 (4.5-10.0)
[2023-07-22 05:46] LABS: Alanine Aminotransferase 64 U/L (6-50); Albumin Level 3.7 g/dL (3.5-5.1); Alkaline Phosphatase 65 U/L (38-126); Anion Gap 4 mmol/L (8-16); Aspartate Amino Transferase 116 U/L (17-59); Blood Urea Nitrogen 8 mg/dL (9-20); Calcium 8.2 mg/dL (8.4-10.2); Carbon Dioxide 30 mmol/L (22-30); Chloride 98 mmol/L (98-107); Estimated CRCL calculation 135 ml/min; Estimated Glomerular Filt Rate > 60; Glucose 116 mg/dL (65-110); Potassium 4.2 mmol/L (3.4-5.0); Sodium 132 mmol/L (137-145)
[2023-07-22 07:30] LABS: Glucose Point of Care 124 mg/dl (65-105)
[2023-07-22] MEDS: ASPIRIN 81 MG ENTERIC TABLET PO (08:30)
[2023-07-22] MEDS: buPROPion HCL SR (12 HR) 150 MG TAB PO ×2 (08:31→20:17)
[2023-07-22] MEDS: PANTOPRAZOLE 40 MG TABLET PO (08:31)
[2023-07-22 11:46] LABS: Glucose Point of Care 124 mg/dl (65-105)
[2023-07-22] MEDS: CEFEPIME 2 GM/NS 50 ML 2 GM/50 ML BAG IVPB ×2 (11:47→23:50)
--- NOTE | 2023-07-22 13:26 | PM.PNORT ---
Progress Note: A&P Assessment and Plan (1) Osteomyelitis of great toe of right foot: Code(s): M86.9 - Osteomyelitis, unspecified Status: Acute Assessment and Plan: POD #1: Right hallux amputation, excisional debride diabetic ulcer right foot Cultures pending. Pathology Pending. Initial blood cultures revealing Streptococcus intermedius. Continue IV antibiotics per the medicine team. Dressing removed to the right foot today. Incision well approximated. Mild sanguinous drainage. Patient has edema/erythema consistent with cellulitis to the entire right LL and foot. Again, would benefit from continued IV antibiotics for cellulitis and bacteremia. Possible transition to oral antibiotics upon discharge home pending medicine team decisions and final cultures/pathology. Reinforced need for elevation of the RLE on pillows. Daily dressing changes to begin. Orders in place. RN to obtain CAM walker boot. PWB on heel in boot. Stop IV pain medication. Start oral regimen with Hubertus. (2) Elevated LFTs: Code(s): R79.89 - Other specified abnormal findings of blood chemistry Status: Acute (3) Sepsis: Code(s): A41.9 - Sepsis, unspecified organism Status: Acute Assessment and Plan: Blood cultures revealing Streptococcus intermedius. Wound cultures and intraoperative pathology pending. (4) Cellulitis of great toe of right foot: Code(s): L03.031 - Cellulitis of right toe Status: Acute Assessment and Plan: Cellulitis/swelling/edema/erythema entire right foot/lower leg. Continue IV antibiotics. (5) Diabetic infection of right foot: Code(s): E11.628 - Type 2 diabetes mellitus with other skin complications; L08.9 - Local infection of the skin and subcutaneous tissue, unspecified Status: Acute (6) Gastroesophageal reflux disease: Code(s): K21.9 - Gastro-esophageal reflux disease without esophagitis Status: Acute (7) Chronic anticoagulation: Code(s): Z79.01 - director long term care (current) use of anticoagulants Status: Acute (8) Type 2 diabetes mellitus: Code(s): E11.9 - Type 2 diabetes mellitus without complications Status: Acute Assessment and Plan: Close diabetic control for optimal wound healing. Plan Reviewed history, exam, radiographs and current labs with attending MD and covering surgeon, Dr. Jackson, who agrees with current plan as indicated above. No further recommendations from Dr. Grebing at this time. Subjective Subjective Date/Time Seen: 07/22/23 13:26 Post Op day: 1 Interval history: POD #1: Right hallux amputation, excisional debride diabetic ulcer right foot Patient had difficulty postoperative requiring and increase in oxygen requirement and admittance to the IMU. He is stable today and no longer requiring oxygen. He is having difficulty laying in bed and/or keeping his leg elevated. He has been bearing weight around his hospital room with the dressing in place on the RLE. He is also taking IV fentanyl for pain. No new concerns from patient aside from pain control and plan of care moving forward in regards to antibiotics. Review of Systems Review of Systems: All systems reviewed & are unremarkable except as noted in HPI and below Exam Const: General: comfortable and no acute distress Resp: Effort & Inspection: normal respiratory effort Skin: Wounds: wounds noted (see below ) Extrem: Right lower extremity: lower leg (edema ), ankle Details: edema and foot (toe amputation, incision well approximated. ) Details: warmth, edema (entire foot ), vascular exam (faintly palpable ), motor-sensory exam Details: two point discrimination abnormal and light-touch abnormal and other (erythema ) Objective Data Vital Signs Vital Signs: Vital Signs - 24 hr 07/21/23 14:12 07/21/23 15:45 07/21/23 16:00 Temperature 37.4 C 36.4 C L Pulse Rate 94 101 H 99 Respiratory Rate 20 16 18 Blood Pressure 146/81 H 132/84 1
[2023-07-22] MEDS: VANCOMYCIN 2,000 MG/NS 500 ML 2,000 MG/500 ML BAG 250 MG IVPB (13:28)
[2023-07-22] MEDS: HYDROcodone/acetaminophen (*CRX) 5-325 MG TABLET 1 TAB PO ×2 (13:34→20:16)
--- NOTE | 2023-07-22 15:44 | PM.IMPN ---
Progress Note: A&P Assessment and Plan (1) Sepsis: Code(s): A41.9 - Sepsis, unspecified organism Status: Acute Assessment and Plan: -sepsis without shock -leukocytosis and lactic acidosis resolved (2) Cellulitis of great toe of right foot: Code(s): L03.031 - Cellulitis of right toe Status: Acute Assessment and Plan: continue antibiotics Flagyl now PO BC pending - prelim showing strep intermedius wound cultures NGTD (3) Osteomyelitis of great toe of right foot: Code(s): M86.9 - Osteomyelitis, unspecified Status: Acute Assessment and Plan: currently on metronidazole vancomycin and cefepime. ortho following (4) Diabetic infection of right foot: Code(s): E11.628 - Type 2 diabetes mellitus with other skin complications; L08.9 - Local infection of the skin and subcutaneous tissue, unspecified Status: Acute Assessment and Plan: debridement on 07/21 (5) Type 2 diabetes mellitus: Code(s): E11.9 - Type 2 diabetes mellitus without complications Status: Chronic Assessment and Plan: -hemoglobin A1c 6.1% on 07/19/2023 -continue Accu-Cheks with hypoglycemia protocol and insulin sliding scale. (6) Lactic acidosis: Code(s): E87.20 - Acidosis, unspecified Status: Resolved (7) Gastroesophageal reflux disease: Code(s): K21.9 - Gastro-esophageal reflux disease without esophagitis Status: Chronic Assessment and Plan: Continue Protonix (8) Hyponatremia: Code(s): E87.1 - Hypo-osmolality and hyponatremia Status: Acute Assessment and Plan: 132 today Continue to monitor (9) Hyperkalemia: Code(s): E87.5 - Hyperkalemia Status: Resolved Assessment and Plan: -resolved (10) Factor 5 Leiden mutation, heterozygous: Code(s): D68.51 - Activated protein C resistance Status: Acute Assessment and Plan: Transitioned back to rivaroxaban and aspirin (11) Essential (primary) hypertension: Code(s): I10 - Essential (primary) hypertension Status: Chronic Assessment and Plan: -resume lisinopril (12) Elevated LFTs: Code(s): R79.89 - Other specified abnormal findings of blood chemistry Status: Acute Assessment and Plan: -Continue to monitor Plan GI prophylaxis: Continue home dose Protonix DVT prophylaxis: rivaroxaban Lines: Peripheral IV Code Status: Full code Dispo: Stable Subjective Date/time seen: 07/22/23 15:44 Interval history: Patient sitting up in chair this morning on exam. His right leg was wrapped and dressed. Ortho following post debridement yesterday. BC prelim showed Strep, will continue IV therapy for now and plan to transition to PO in upcoming days. Flagyl now PO. Pain meds transitioned to PO by ortho. Will continue to monitor response to therapy. Review of Systems Review of Systems: All systems reviewed & are unremarkable except as noted in HPI and below (Subjective) Exam Narrative: General: No acute distress, overweight male sitting up in chair HEENT: Atraumatic, normocephalic, mucous membranes moist; EOMI, PERRLA CV: RRR Lungs: Clear to auscultation bilaterally Abdomen: Soft, nontender, nondistended. BS present and active. Extremities: Normal to inspection, bandages covering right LL clean, dry and intact. Skin: Edema noted, but chronic in left LLE Psych: pleasant and normal affect Objective Data Vital Signs Vital Signs: Vital Signs - 24 hr 07/21/23 15:45 07/21/23 16:00 07/21/23 16:15 Temperature 97.5 F L Pulse Rate 101 H 99 101 H Respiratory Rate 16 18 28 H Blood Pressure 132/84 114/75 157/93 H Pulse Oximetry 94 90 89 L Oxygen Delivery Simple Face Mask Simple Face Mask Nasal Cannula Oxygen Flow Rate 12 15 6 07/21/23 16:30 07/21/23 16:45 07/21/23 17:00 Temperature Pulse Rate 134 H 109
[2023-07-22 16:27] LABS: Glucose Point of Care 155 mg/dl (65-105)
[2023-07-22] MEDS: RIVAROXABAN 20 MG TABLET PO (17:07)
[2023-07-22] MEDS: SIMVASTATIN 20 MG TABLET PO (20:16)
[2023-07-22] MEDS: metroNIDAZOLE 500 MG TABLET PO (20:16)
[2023-07-22 20:25] LABS: Glucose Point of Care 146 mg/dl (65-105)
[2023-07-23] VITALS (8 sets, daily range): BP systolic 140–151; BP diastolic 83–93; PULSE 72–102; RESP 18–21; TEMP 36.2–36.6; O2SAT 93–96
[2023-07-23] MEDS: VANCOMYCIN 2,000 MG/NS 500 ML 2,000 MG/500 ML BAG 250 MG IVPB (01:20)
[2023-07-23 05:08] LABS: Basophils Absolute Auto 0.1 K/mm3 (0.0-0.1); Basophils Percent Auto 1.2 % (0.2-1.2); Eosinophils Absolute Auto 0.1 K/mm3 (0-0.3); Eosinophils Percent Auto 2.6 % (0-4.4); Hematocrit 35.2 % (42.0-52.0); Hemoglobin 11.3 g/dL (14.0-18.0); Immature Granulocyte Absolute 0.02 K/mm3 (0.00-0.031); Immature Granulocyte Percent A 0.5 % (0-0.5); Lymphocytes Percent Auto 28.7 % (18.3-44.2); Mean Corpuscular HGB Conc 32.1 g/dl (32-36); Mean Corpuscular Hemoglobin 33.8 pg (26-34); Mean Corpuscular Volume 105.4 fl (80-100); Mean Platelet Volume 9.9 fl (7.4-10.4); Monocytes Absolute Auto 0.5 K/mm3 (0.1-0.6); Monocytes Percent Auto 12.7 % (2.6-8.5); Neutrophils Absolute Auto 2.3 K/mm3 (1.3-6.7); Neutrophils Percent Auto 54.3 % (45.5-73.1); Platelet Count Result 162 k/mm3 (150-375); Red Blood Count 3.34 M/mm3 (4.6-6.20); Red Cell Distribution Width 12.2 % (11.5-14.5); White Blood Count 4.2 K/mm3 (4.5-10.0)
[2023-07-23] MEDS: HYDROcodone/acetaminophen (*CRX) 5-325 MG TABLET 1 TAB PO ×4 (05:19→21:25)
[2023-07-23] MEDS: metroNIDAZOLE 500 MG TABLET PO ×3 (05:22→20:56)
[2023-07-23 05:23] LABS: Alanine Aminotransferase 69 U/L (6-50); Albumin Level 3.9 g/dL (3.5-5.1); Alkaline Phosphatase 73 U/L (38-126); Anion Gap 7 mmol/L (8-16); Aspartate Amino Transferase 96 U/L (17-59); Bilirubin,Total 1.2 mg/dL (0.2-1.3); Blood Urea Nitrogen 8 mg/dL (9-20); Calcium 8.7 mg/dL (8.4-10.2); Carbon Dioxide 27 mmol/L (22-30); Chloride 102 mmol/L (98-107); Estimated CRCL calculation 135 ml/min; Estimated Glomerular Filt Rate > 60; Glucose 120 mg/dL (65-110); Potassium 4.3 mmol/L (3.4-5.0); Sodium 136 mmol/L (137-145)
[2023-07-23 08:15] LABS: Glucose Point of Care 171 mg/dl (65-105)
[2023-07-23] MEDS: buPROPion HCL SR (12 HR) 150 MG TAB PO ×2 (09:21→20:54)
[2023-07-23] MEDS: PANTOPRAZOLE 40 MG TABLET PO (09:21)
[2023-07-23] MEDS: lisinopriL 20 MG TABLET PO (09:21)
[2023-07-23] MEDS: ASPIRIN 81 MG ENTERIC TABLET PO (09:22)
--- NOTE | 2023-07-23 09:53 | PM.PNORT ---
Progress Note: A&P Assessment and Plan (1) Osteomyelitis of great toe of right foot: Code(s): M86.9 - Osteomyelitis, unspecified Status: Acute Assessment and Plan: POD #2: Right hallux amputation, excisional debride diabetic ulcer right foot Wound cultures with preliminary results reveal white blood cells, rare gram positive cocci, rare gram negative bacilli. Final pathology pending. Pathology Pending. Initial blood cultures revealing Streptococcus intermedius. Continue IV antibiotics per the medicine team. Dressing removed from the right foot today. Incision well approximated. Mild sanguinous drainage. Patient has improved edema/erythema in the RLE. Again, defer IV antibiotics decision to medicine team given cellulitis, bacteremia and osteomyelitis. Reinforced need for elevation of the RLE on pillows. Daily dressing changes to begin. Orders in place. Post Op Shoe. PWB on heel in post op shoe. Continue Wynona as needed. Will obtain ABIs for further evaluation of healing potential. May require vascular referral as an outpatient. (2) Elevated LFTs: Code(s): R79.89 - Other specified abnormal findings of blood chemistry Status: Acute (3) Sepsis: Code(s): A41.9 - Sepsis, unspecified organism Status: Acute Assessment and Plan: Blood cultures revealing Streptococcus intermedius. Wound cultures with preliminary results and intraoperative pathology pending. (4) Cellulitis of great toe of right foot: Code(s): L03.031 - Cellulitis of right toe Status: Acute Assessment and Plan: Cellulitis/swelling/edema/erythema entire right foot/lower le- Improved. Continue IV antibiotics, antibiotic decision per the medicine team. (5) Diabetic infection of right foot: Code(s): E11.628 - Type 2 diabetes mellitus with other skin complications; L08.9 - Local infection of the skin and subcutaneous tissue, unspecified Status: Acute (6) Gastroesophageal reflux disease: Code(s): K21.9 - Gastro-esophageal reflux disease without esophagitis Status: Chronic (7) Chronic anticoagulation: Code(s): Z79.01 - alf (current) use of anticoagulants Status: Acute (8) Type 2 diabetes mellitus: Code(s): E11.9 - Type 2 diabetes mellitus without complications Status: Chronic Assessment and Plan: Close diabetic control for optimal wound healing. Plan Reviewed history, exam, radiographs and current labs with attending MD and covering surgeon, Dr. Jackson, who agrees with current plan as indicated above. No further recommendations from Dr. Jackson at this time. Subjective Subjective Date/Time Seen: 07/23/23 09:53 Post Op day: 2 Interval history: POD #2: Right hallux amputation, excisional debridement diabetic ulcer right foot Patient doing well. Pain well controlled today. Up in chair at time of exam. Significant improvement in swelling/erythema to the RLE today. Hopeful for discharge home today. Review of Systems Review of Systems: All systems reviewed & are unremarkable except as noted in HPI and below (Subjective) Exam Const: General: comfortable and no acute distress Resp: Effort & Inspection: normal respiratory effort Skin: Wounds: wounds noted (see below ) Extrem: Right lower extremity: lower leg (edema ), ankle Details: edema and foot (toe amputation, incision well approximated. ) Details: warmth, edema (entire foot ), vascular exam (faintly palpable ), motor-sensory exam Details: two point discrimination abnormal and light-touch abnormal and other (erythema- IMPROVED ) Objective Data Vital Signs Vital Signs: Vital Signs - 24 hr 07/22/23 10:00 07/22/23 12:00 07/22/23 12:00 Temperature Pulse Rate 87 97 97 Respiratory Rate 20 Blood Pressure Pulse Oximetry 92 Oxygen Delivery Room Air 07/22/23 12:00 07/22/23 16:00 07/22/23 14:00 Temperature 36.3 C L 36.6 C Pulse Rate 83 79 83 Respiratory Ra
--- NOTE | 2023-07-23 11:48 | PC.NURSE ---
This patient, Marc Haddad, was transferred to [facility] on 07/23/23 at 1148. Personal belongings sent with patient. Report given to Kalyani PARKS. Appropriate documentation sent with patient.
[2023-07-23 11:58] LABS: Glucose Point of Care 152 mg/dl (65-105)
[2023-07-23] MEDS: CEFEPIME 2 GM/NS 50 ML 2 GM/50 ML BAG IVPB (12:15)
[2023-07-23] MEDS: cefTRIAXone 2 GM/NS 100 ML 2 GM/100 ML BAG IVPB (13:06)
--- NOTE | 2023-07-23 14:32 | PM.IMPN ---
Progress Note: A&P Assessment and Plan (1) Sepsis: Code(s): A41.9 - Sepsis, unspecified organism Status: Acute Assessment and Plan: -sepsis without shock -leukocytosis and lactic acidosis resolved (2) Cellulitis of great toe of right foot: Code(s): L03.031 - Cellulitis of right toe Status: Acute Assessment and Plan: continue antibiotics, tailored down to Rocephin and Flagyl until sensitivities result BC pending - prelim showing strep intermedius wound cultures NGTD (3) Osteomyelitis of great toe of right foot: Code(s): M86.9 - Osteomyelitis, unspecified Status: Acute Assessment and Plan: currently on metronidazole and Rocephin. ortho following (4) Diabetic infection of right foot: Code(s): E11.628 - Type 2 diabetes mellitus with other skin complications; L08.9 - Local infection of the skin and subcutaneous tissue, unspecified Status: Acute Assessment and Plan: debridement on 07/21 (5) Type 2 diabetes mellitus: Code(s): E11.9 - Type 2 diabetes mellitus without complications Status: Chronic Assessment and Plan: hemoglobin A1c 6.1% on 07/19/2023 continue Accu-Cheks with hypoglycemia protocol and insulin sliding scale. (6) Lactic acidosis: Code(s): E87.20 - Acidosis, unspecified Status: Resolved (7) Gastroesophageal reflux disease: Code(s): K21.9 - Gastro-esophageal reflux disease without esophagitis Status: Chronic Assessment and Plan: Continue Protonix (8) Hyponatremia: Code(s): E87.1 - Hypo-osmolality and hyponatremia Status: Acute Assessment and Plan: 136 today Continue to monitor (9) Hyperkalemia: Code(s): E87.5 - Hyperkalemia Status: Resolved Assessment and Plan: -resolved (10) Factor 5 Leiden mutation, heterozygous: Code(s): D68.51 - Activated protein C resistance Status: Acute Assessment and Plan: Transitioned back to rivaroxaban and aspirin (11) Essential (primary) hypertension: Code(s): I10 - Essential (primary) hypertension Status: Chronic Assessment and Plan: continue lisinopril (12) Elevated LFTs: Code(s): R79.89 - Other specified abnormal findings of blood chemistry Status: Acute Assessment and Plan: AST/ALT: 96/69 Continue to monitor Plan GI prophylaxis: Continue home dose Protonix DVT prophylaxis: rivaroxaban Lines: Peripheral IV Code Status: Full code Dispo: Stable Subjective Date/time seen: 07/23/23 14:32 Interval history: Patient sitting up in chair this morning on exam. His right leg was unwrapped by ortho this am. His TOBY was normal on left side and unable to be done on right. Ortho following post debridement 07/21. BC prelim showed Strep, will continue IV therapy for now and plan to transition to PO in upcoming days. Pain is controlled with PO meds. Will continue to monitor response to therapy. Review of Systems Review of Systems: All systems reviewed & are unremarkable except as noted in HPI and below Exam Narrative: General: No acute distress, overweight male sitting up in chair HEENT: Atraumatic, normocephalic, mucous membranes moist; EOMI, PERRLA CV: RRR Lungs: Clear to auscultation bilaterally Abdomen: Soft, nontender, nondistended. BS present and active. Extremities: Normal to inspection, bandages covering right toe clean, dry and intact. Skin: Edema noted, but chronic in left LLE Psych: pleasant and normal affect Objective Data Vital Signs Vital Signs: Vital Signs - 24 hr 07/22/23 16:00 07/22/23 16:00 07/22/23 16:00 Temperature 97.9 F Pulse Rate 79 79 79 Respiratory Rate 20 20 Blood Pressure 129/73 Pulse Oximetry 93 93 Oxygen Delivery Room Air 07/22/23 18:00 07/22/23 19:48 07/22/23 23:50 Temperature 97.7 F 97.9 F Pulse Rate 81
[2023-07-23 16:24] LABS: Glucose Point of Care 123 mg/dl (65-105)
[2023-07-23] MEDS: RIVAROXABAN 20 MG TABLET PO (17:22)
[2023-07-23 20:36] LABS: Glucose Point of Care 150 mg/dl (65-105)
[2023-07-23] MEDS: SIMVASTATIN 20 MG TABLET PO (20:54)
[2023-07-24] VITALS (8 sets, daily range): BP systolic 116–161; BP diastolic 69–91; PULSE 75–95; RESP 16–20; TEMP 36.3–37.2; O2SAT 96–98
[2023-07-24] MEDS: HYDROcodone/acetaminophen (*CRX) 5-325 MG TABLET 1 TAB PO ×3 (06:20→18:38)
[2023-07-24] MEDS: metroNIDAZOLE 500 MG TABLET PO ×2 (06:22→13:02)
[2023-07-24 06:23] LABS: Basophils Absolute Auto 0.1 K/mm3 (0.0-0.1); Basophils Percent Auto 1.2 % (0.2-1.2); Eosinophils Absolute Auto 0.2 K/mm3 (0-0.3); Eosinophils Percent Auto 3.5 % (0-4.4); Hematocrit 37.9 % (42.0-52.0); Immature Granulocyte Absolute 0.05 K/mm3 (0.00-0.031); Lymphocytes Absolute Auto 1.24 K/mm3 (0.9-3.2); Lymphocytes Percent Auto 23.9 % (18.3-44.2); Mean Corpuscular HGB Conc 31.7 g/dl (32-36); Mean Corpuscular Volume 104.1 fl (80-100); Mean Platelet Volume 9.7 fl (7.4-10.4); Monocytes Absolute Auto 0.7 K/mm3 (0.1-0.6); Monocytes Percent Auto 13.9 % (2.6-8.5); Neutrophils Absolute Auto 2.9 K/mm3 (1.3-6.7); Neutrophils Percent Auto 56.5 % (45.5-73.1); Platelet Count Result 193 k/mm3 (150-375); Red Blood Count 3.64 M/mm3 (4.6-6.20); Red Cell Distribution Width 11.9 % (11.5-14.5); White Blood Count 5.2 K/mm3 (4.5-10.0)
[2023-07-24 06:35] LABS: Alanine Aminotransferase 53 U/L (6-50); Alkaline Phosphatase 68 U/L (38-126); Anion Gap 9 mmol/L (8-16); Aspartate Amino Transferase 63 U/L (17-59); Bilirubin,Total 0.9 mg/dL (0.2-1.3); Blood Urea Nitrogen 8 mg/dL (9-20); Calcium 9.2 mg/dL (8.4-10.2); Carbon Dioxide 26 mmol/L (22-30); Chloride 99 mmol/L (98-107); Estimated CRCL calculation 135 ml/min; Estimated Glomerular Filt Rate > 60; Glucose 123 mg/dL (65-110); Potassium 3.9 mmol/L (3.4-5.0); Sodium 134 mmol/L (137-145)
[2023-07-24 07:48] LABS: Glucose Point of Care 133 mg/dl (65-105)
--- NOTE | 2023-07-24 08:26 | PM.PNORT ---
Progress Note: A&P Assessment and Plan (1) Osteomyelitis of great toe of right foot: Code(s): M86.9 - Osteomyelitis, unspecified Status: Acute Assessment and Plan: POD #3: Right hallux amputation, excisional debride diabetic ulcer right foot Wound cultures Streptococcus intermedius, pansensitive. Continue IV antibiotics per the medicine team. Reinforced need for elevation of the RLE on pillows. Daily dressing changes to begin. Orders in place. Post Op Shoe. PWB on heel in post op shoe. Continue [place] as needed. ABIs show good arterial blood flow bilateral extremities. (2) Elevated LFTs: Code(s): R79.89 - Other specified abnormal findings of blood chemistry Status: Acute (3) Sepsis: Qualifiers: Sepsis type: Streptococcus, other Sepsis acute organ dysfunction status: without acute organ dysfunction Qualified Code(s): A40.8 - Other streptococcal sepsis Code(s): A41.9 - Sepsis, unspecified organism Status: Acute Assessment and Plan: Blood cultures revealing Streptococcus intermedius. (4) Diabetic infection of right foot: Code(s): E11.628 - Type 2 diabetes mellitus with other skin complications; L08.9 - Local infection of the skin and subcutaneous tissue, unspecified Status: Acute Subjective Subjective Date/Time Seen: 07/24/23 08:26 Post Op day: 3 Interval history: POD #3: Right hallux amputation, excisional debridement diabetic ulcer right foot Patient doing well. Pain well controlled today. Significant improvement in swelling/erythema to the RLE today. Exam Const: General: comfortable and no acute distress Resp: Effort & Inspection: normal respiratory effort Skin: Wounds: wounds noted (see below ) Extrem: Right lower extremity: lower leg (edema ), ankle Details: edema and foot (toe amputation, incision well approximated. ) Details: warmth, edema (entire foot ), vascular exam (faintly palpable ), motor-sensory exam Details: two point discrimination abnormal and light-touch abnormal and other (erythema- IMPROVED ) Objective Data Vital Signs Vital Signs: Vital Signs - 24 hr 07/23/23 14:30 07/23/23 20:38 07/23/23 20:40 Temperature 97.4 F L 97.2 F L Pulse Rate 81 78 100 Respiratory Rate 20 20 Blood Pressure 141/89 H 143/88 H Pulse Oximetry 96 95 07/24/23 00:00 07/24/23 04:00 07/24/23 06:20 Temperature 97.7 F Pulse Rate 87 75 82 Respiratory Rate 16 Blood Pressure 116/69 Pulse Oximetry 97 07/24/23 07:49 Temperature 98.9 F Pulse Rate 76 Respiratory Rate 20 Blood Pressure 136/80 Pulse Oximetry 97 Intake/Output Intake/Output: Intake & Output 07/21/23 07/22/23 07/23/23 07/24/23 23:59 23:59 23:59 23:59 Intake Total 4650 2770 1780 Output Total 1800 Balance 2850 2770 1780 Meds/Results Medications: Active Medications Generic Name Dose Route Start Last Admin Trade Name Freq PRN Reason Stop Dose Admin Acetaminophen 650 mg 07/19/23 21:06 07/21/23 21:03 Acetaminophen 325 Mg Tablet PO 650 mg Q6H PRN Administration Mild Pain (1-3) or Fever Hydrocodone Bitart/Acetaminophen 1 tab 07/22/23 13:22 07/24/23 06:20 Hydrocodone/Acetaminophen (*Crx) 5-325 Mg Tablet PO 1 tab Q4H PRN Administration Pain Rated 4-6 Hydrocodone Bitart/Acetaminophen 2 tab 07/22/23 13:23 Hydrocodone/Acetaminophen (*Crx) 5-325 Mg Tablet PO Q6H PRN Pain Rated 7-10 Aspirin 81 mg 07/20/23 09:00 07/23/23 09:22 Aspirin 81 Mg Enteric Tablet PO 81 mg DAILY ANNABELLE Administration Benzocaine 1 lozenge 07/21/23 20:33 Benzocaine/Menthol (*Bkc) 18 Ea Lozenge PO PRN PRN Sore Throat Bupropion HCl 150 mg 07/19/23 21:00 07/23/23 20:54 Bupropion Hcl Sr (12 Hr) 150 Mg Tab PO 150 mg Q12HR ANNABELLE Administration Dextrose 12.5 gm 07/19/23 21:06 Dextrose 50% 25 Gm/50 Ml Syringe IV PUSH PRN PRN Hypoglycemia Protocol Glucagon 1 mg 02
[2023-07-24] MEDS: cefTRIAXone 2 GM/NS 100 ML 2 GM/100 ML BAG IVPB (08:28)
[2023-07-24] MEDS: ASPIRIN 81 MG ENTERIC TABLET PO (08:28)
[2023-07-24] MEDS: buPROPion HCL SR (12 HR) 150 MG TAB PO ×2 (08:28→20:44)
[2023-07-24] MEDS: PANTOPRAZOLE 40 MG TABLET PO (08:28)
[2023-07-24] MEDS: lisinopriL 20 MG TABLET PO (08:29)
[2023-07-24 11:44] LABS: Glucose Point of Care 135 mg/dl (65-105)
--- NOTE | 2023-07-24 15:51 | PM.IMPN ---
Progress Note: A&P Assessment and Plan (1) Osteomyelitis of great toe of right foot: Code(s): M86.9 - Osteomyelitis, unspecified Status: Acute Assessment and Plan: currently on metronidazole and Rocephin. ortho following blood c/s 1/2 with pansensitive strep intermedius, wound culture no growth 3/2 stopped metronidazole and ceftriaxone, started levofloxacin 750 mg po daily for 4 weeks (2) Cellulitis of great toe of right foot: Code(s): L03.031 - Cellulitis of right toe Status: Acute Assessment and Plan: as above (3) Diabetic infection of right foot: Code(s): E11.628 - Type 2 diabetes mellitus with other skin complications; L08.9 - Local infection of the skin and subcutaneous tissue, unspecified Status: Acute Assessment and Plan: debridement on 07/21 (4) Type 2 diabetes mellitus: Code(s): E11.9 - Type 2 diabetes mellitus without complications Status: Chronic Assessment and Plan: hemoglobin A1c 6.1% on 07/19/2023 continue Accu-Cheks with hypoglycemia protocol and insulin sliding scale 3/2 FBS 123 (5) Gastroesophageal reflux disease: Code(s): K21.9 - Gastro-esophageal reflux disease without esophagitis Status: Chronic Assessment and Plan: Continue Protonix (6) Hyponatremia: Code(s): E87.1 - Hypo-osmolality and hyponatremia Status: Acute Assessment and Plan: 136 today Continue to monitor (7) Hyperkalemia: Code(s): E87.5 - Hyperkalemia Status: Resolved Assessment and Plan: -resolved (8) Factor 5 Leiden mutation, heterozygous: Code(s): D68.51 - Activated protein C resistance Status: Acute Assessment and Plan: Transitioned back to rivaroxaban and aspirin (9) Essential (primary) hypertension: Code(s): I10 - Essential (primary) hypertension Status: Chronic Assessment and Plan: continue lisinopril (10) Elevated LFTs: Code(s): R79.89 - Other specified abnormal findings of blood chemistry Status: Acute Assessment and Plan: AST/ALT: 96/69 Continue to monitor (11) Sepsis: Qualifiers: Sepsis type: Streptococcus, other Sepsis acute organ dysfunction status: without acute organ dysfunction Qualified Code(s): A40.8 - Other streptococcal sepsis Code(s): A41.9 - Sepsis, unspecified organism Status: Acute Assessment and Plan: -sepsis without shock -leukocytosis and lactic acidosis resolved (12) Lactic acidosis: Code(s): E87.20 - Acidosis, unspecified Status: Resolved Assessment and Plan: resolved Plan GI prophylaxis: Continue home dose Protonix DVT prophylaxis: rivaroxaban Lines: Peripheral IV Code Status: Full code Dispo: Stable Subjective Date/time seen: 07/24/23 15:51 Interval history: Tolerating diet. Pain controlled. Leery about going home w/o first trying po antibx as he did not tolerate Keflex as outpatient and believes that contributed to his infection worsening. Denied cp, sob. One loose stool today. No bleeding. No urinary sx's. No swelling. Review of Systems Review of Systems: All systems reviewed & are unremarkable except as noted in HPI and below Exam Narrative: General: No acute distress, overweight male sitting up in chair HEENT: Atraumatic, normocephalic, mucous membranes moist; EOMI, PERRLA CV: RRR Lungs: Clear to auscultation bilaterally Abdomen: Soft, nontender, nondistended. BS present and active. Extremities: Normal to inspection, bandages covering right toe clean, dry and intact. Psych: pleasant and normal affect. A and O x4. Objective Data Vital Signs Vital Signs: Vital Signs - 24 hr 07/23/23 20:38 07/23/23 20:40 07/24/23 00:00 Temperature 97.2 F L Pulse Rate 78 100 87 Respiratory Rate 20 Blood Pressure 143/88 H Pulse Oximetry 95
[2023-07-24 16:17] LABS: Glucose Point of Care 149 mg/dl (65-105)
[2023-07-24] MEDS: RIVAROXABAN 20 MG TABLET PO (17:00)
[2023-07-24] MEDS: levoFLOXacin 750 MG TABLET PO (17:00)
[2023-07-24] MEDS: SIMVASTATIN 20 MG TABLET PO (20:44)
[2023-07-24 20:45] LABS: Glucose Point of Care 135 mg/dl (65-105)
[2023-07-25] VITALS: PULSE 81
[2023-07-25] MEDS: HYDROcodone/acetaminophen (*CRX) 5-325 MG TABLET 1 TAB PO ×2 (02:29→06:49)
[2023-07-25 04:00] VITALS: PULSE 77
[2023-07-25 05:04] VITALS: BP 142/81; PULSE 75; RESP 16; TEMP 36.3; O2SAT 96
[2023-07-25 06:27] LABS: Basophils Absolute Auto 0.1 K/mm3 (0.0-0.1); Basophils Percent Auto 1.2 % (0.2-1.2); Eosinophils Absolute Auto 0.2 K/mm3 (0-0.3); Eosinophils Percent Auto 4.6 % (0-4.4); Hematocrit 36.6 % (42.0-52.0); Hemoglobin 11.9 g/dL (14.0-18.0); Immature Granulocyte Absolute 0.02 K/mm3 (0.00-0.031); Immature Granulocyte Percent A 0.4 % (0-0.5); Lymphocytes Absolute Auto 1.53 K/mm3 (0.9-3.2); Lymphocytes Percent Auto 30.6 % (18.3-44.2); Mean Corpuscular HGB Conc 32.5 g/dl (32-36); Mean Corpuscular Hemoglobin 33.2 pg (26-34); Mean Corpuscular Volume 102.2 fl (80-100); Monocytes Absolute Auto 0.7 K/mm3 (0.1-0.6); Monocytes Percent Auto 14.4 % (2.6-8.5); Neutrophils Absolute Auto 2.4 K/mm3 (1.3-6.7); Neutrophils Percent Auto 48.8 % (45.5-73.1); Platelet Count Result 185 k/mm3 (150-375); Red Blood Count 3.58 M/mm3 (4.6-6.20)
[2023-07-25 06:37] LABS: Alanine Aminotransferase 47 U/L (6-50); Albumin Level 3.9 g/dL (3.5-5.1); Alkaline Phosphatase 69 U/L (38-126); Anion Gap 7 mmol/L (8-16); Aspartate Amino Transferase 68 U/L (17-59); Bilirubin,Total 0.9 mg/dL (0.2-1.3); Blood Urea Nitrogen 9 mg/dL (9-20); Calcium 9.6 mg/dL (8.4-10.2); Carbon Dioxide 28 mmol/L (22-30); Chloride 100 mmol/L (98-107); Estimated CRCL calculation 135 ml/min; Estimated Glomerular Filt Rate > 60; Glucose 121 mg/dL (65-110); Potassium 4.1 mmol/L (3.4-5.0); Sodium 135 mmol/L (137-145)
[2023-07-25 07:48] LABS: Glucose Point of Care 124 mg/dl (65-105)
[2023-07-25 08:00] VITALS: BP 149/90; PULSE 84; PULSE 85; RESP 20; TEMP 36.6; O2SAT 97
[2023-07-25] MEDS: buPROPion HCL SR (12 HR) 150 MG TAB PO (08:13)
[2023-07-25] MEDS: lisinopriL 20 MG TABLET PO (08:13)
[2023-07-25] MEDS: PANTOPRAZOLE 40 MG TABLET PO (08:14)
[2023-07-25] MEDS: ASPIRIN 81 MG ENTERIC TABLET PO (08:14)
--- NOTE | 2023-07-25 09:27 | PM.PNORT ---
Progress Note: A&P Assessment and Plan (1) Osteomyelitis of great toe of right foot: Code(s): M86.9 - Osteomyelitis, unspecified Status: Acute Assessment and Plan: POD #4: Right hallux amputation, excisional debride diabetic ulcer right foot Blood culture Streptococcus intermedius, pansensitive. Continue antibiotics per the medicine team. Reinforced need for elevation of the RLE on pillows. Daily dressing changes. Post Op Shoe. PWB on heel in post op shoe. Continue [place] as needed. ABIs show good arterial blood flow bilateral extremities. (2) Sepsis: Qualifiers: Sepsis type: Streptococcus, other Sepsis acute organ dysfunction status: without acute organ dysfunction Qualified Code(s): A40.8 - Other streptococcal sepsis Code(s): A41.9 - Sepsis, unspecified organism Status: Acute Assessment and Plan: Blood cultures revealing Streptococcus intermedius. (3) Diabetic infection of right foot: Code(s): E11.628 - Type 2 diabetes mellitus with other skin complications; L08.9 - Local infection of the skin and subcutaneous tissue, unspecified Status: Acute Assessment and Plan: okay for discharge home. Daily dressing changes. May shower and wash. Postoperative shoe for protected weight-bearing. Follow-up with orthopedic office in 1-2 weeks. Subjective Subjective Date/Time Seen: 07/25/23 09:27 Post Op day: 4 Principal diagnosis: right hallux osteomyelitis Interval history: POD #4: Right hallux amputation, excisional debridement diabetic ulcer right foot Patient doing well. Pain well controlled today. Significant improvement in swelling/erythema to the RLE today. Exam Const: General: comfortable and no acute distress Resp: Effort & Inspection: normal respiratory effort Skin: Wounds: wounds noted (see below ) Extrem: Right lower extremity: lower leg (edema ), ankle Details: edema and foot (toe amputation, incision well approximated. ) Details: warmth, edema (entire foot ), vascular exam (faintly palpable ), motor-sensory exam Details: two point discrimination abnormal and light-touch abnormal and other (erythema- IMPROVED ) Objective Data Vital Signs Vital Signs: Vital Signs - 24 hr 07/24/23 12:00 07/24/23 12:00 07/24/23 16:00 Temperature 97.4 F L Pulse Rate 77 87 80 Respiratory Rate 18 Blood Pressure 143/91 H Pulse Oximetry 98 Oxygen Delivery 07/24/23 16:00 07/24/23 20:24 07/25/23 00:00 Temperature 97.8 F 97.5 F L Pulse Rate 77 78 81 Respiratory Rate 20 16 Blood Pressure 142/85 H 161/90 H Pulse Oximetry 98 96 Oxygen Delivery 07/25/23 04:00 07/25/23 05:04 07/25/23 08:00 Temperature 97.3 F L Pulse Rate 77 75 Respiratory Rate 16 Blood Pressure 142/81 H Pulse Oximetry 96 Oxygen Delivery Room Air Intake/Output Intake/Output: Intake & Output 07/22/23 07/23/23 07/24/23 07/25/23 23:59 23:59 23:59 23:59 Intake Total 2770 1880 2850 550 Balance 2770 1880 2850 550 Meds/Results Medications: Active Medications Generic Name Dose Route Start Last Admin Trade Name Freq PRN Reason Stop Dose Admin Acetaminophen 650 mg 07/19/23 21:06 07/21/23 21:03 Acetaminophen 325 Mg Tablet PO 650 mg Q6H PRN Administration Mild Pain (1-3) or Fever Hydrocodone Bitart/Acetaminophen 1 tab 07/22/23 13:22 07/25/23 06:49 Hydrocodone/Acetaminophen (*Crx) 5-325 Mg Tablet PO 1 tab Q4H PRN Administration Pain Rated 4-6 Hydrocodone Bitart/Acetaminophen 2 tab 07/22/23 13:23 Hydrocodone/Acetaminophen (*Crx) 5-325 Mg Tablet PO Q6H PRN Pain Rated 7-10 Aspirin 81 mg 07/20/23 09:00 07/25/23 08:14 Aspirin 81 Mg Enteric Tablet PO 81 mg DAILY ANNABELLE Administration Benzocaine 1 lozenge 07/21/23 20:33 Benzocaine/Menthol (*Bkc) 18 Ea Lozenge PO PRN PRN Sore Throat Bupropion HCl 150 mg 07/19/23 21:00 07/25/23 08:13 Bupropion Hcl Sr (12 Hr) 1
--- NOTE | 2023-07-25 10:31 | PM.DS ---
DS: Admitting Diagnosis Discharge Date 07/25/2023 Admitting Diagnosis Osteomyelitis right first toe DS: Discharge Diagnosis Discharge Diagnosis (1) Osteomyelitis of great toe of right foot: Code(s): M86.9 - Osteomyelitis, unspecified Status: Acute Assessment and Plan: currently on metronidazole and Rocephin. ortho following blood c/s 1/2 with pansensitive strep intermedius, wound culture no growth 3/2 stopped metronidazole and ceftriaxone, started levofloxacin 750 mg po daily for 4 weeks 3/3 tolerated levofloxacin 750 mg po daily, continue for 4 weeks (2) Cellulitis of great toe of right foot: Code(s): L03.031 - Cellulitis of right toe Status: Acute Assessment and Plan: as above (3) Diabetic infection of right foot: Code(s): E11.628 - Type 2 diabetes mellitus with other skin complications; L08.9 - Local infection of the skin and subcutaneous tissue, unspecified Status: Acute Assessment and Plan: 07/21/23: Right hallux amputation, excisional debridement diabetic ulcer right foot (4) Type 2 diabetes mellitus: Code(s): E11.9 - Type 2 diabetes mellitus without complications Status: Chronic Assessment and Plan: hemoglobin A1c 6.1% on 07/19/2023 continue Accu-Cheks with hypoglycemia protocol and insulin sliding scale 3/2 FBS 123 (5) Gastroesophageal reflux disease: Code(s): K21.9 - Gastro-esophageal reflux disease without esophagitis Status: Chronic Assessment and Plan: Continue Protonix (6) Hyponatremia: Code(s): E87.1 - Hypo-osmolality and hyponatremia Status: Acute Assessment and Plan: 136 today Continue to monitor (7) Hyperkalemia: Code(s): E87.5 - Hyperkalemia Status: Resolved Assessment and Plan: -resolved (8) Factor 5 Leiden mutation, heterozygous: Code(s): D68.51 - Activated protein C resistance Status: Acute Assessment and Plan: Transitioned back to rivaroxaban and aspirin (9) Essential (primary) hypertension: Code(s): I10 - Essential (primary) hypertension Status: Chronic Assessment and Plan: continue lisinopril (10) Elevated LFTs: Code(s): R79.89 - Other specified abnormal findings of blood chemistry Status: Acute Assessment and Plan: AST/ALT: 96/69 Continue to monitor (11) Sepsis: Qualifiers: Sepsis acute organ dysfunction status: without acute organ dysfunction Sepsis type: Streptococcus, other Qualified Code(s): A40.8 - Other streptococcal sepsis Code(s): A41.9 - Sepsis, unspecified organism Status: Acute Assessment and Plan: -sepsis without shock -leukocytosis and lactic acidosis resolved (12) Lactic acidosis: Code(s): E87.20 - Acidosis, unspecified Status: Resolved Assessment and Plan: resolved Plan Osteomyelitis right 1st toe, status post amputation right 1st toe DS: Summary Hospital Course Hospital Course: 57-year-old diabetic gentleman was admitted 07/20 after about 2.5 weeks of ulcer on right 1st toe. Failed outpatient trial of antibiotics for infection impart due to nausea vomiting with Keflex. Upon admission he was treated with IV metronidazole and ceftriaxone. Outpatient x-ray 07/12 showed no findings of osteomyelitis. However admission x-ray of right 1st toe showed findings consistent with osteomyelitis. Blood cultures were obtained and 1 of 2 bottles grew strep intermedius that was pansensitive. On 07/21 he underwent right hallux amputation, excisional debridement diabetic ulcer right foot and tolerated it well. Postoperative course was uneventful. He was transition to oral level floxacillin 750 mg daily the day prior to discharge and tolerated it well. Time Spent with Patient Time attestation: Total time spent providing and/or coordinating discharge services: Exam Narrat
[2023-07-25 11:17] LABS: Glucose Point of Care 134 mg/dl (65-105)
[2023-07-25 12:00] VITALS: PULSE 85
== END 2023-07-25 11:50 | disposition home or self-care (01) | DRG 854 ==
LOC: ANHED 09:14 → ANH3MEDSUR 15:00 → ANHIMU 07-21 18:54 → ANH3MEDSUR 07-23 11:47
PROVIDERS: Orthopaedic Surgery; Physician Assistant; Student in an Organized Health Care Education/Training Program; Admitting Provider General Practice; Emergency Provider Physician Assistant; PCP Internal Medicine; Visit Provider Internal Medicine
PROC: 0Y6P0Z1 Detachment at Right 1st Toe, High, Open Approach (ICD-10-PCS; principal; 2023-07-21 14:30)
DX: A40.8 Other streptococcal sepsis (principal); D68.51 Activated protein C resistance; M86.171 Other acute osteomyelitis, right ankle and foot; E87.1 Hypo-osmolality and hyponatremia; Z68.41 Body mass index [BMI] 40.0-44.9, adult; L03.115 Cellulitis of right lower limb; E11.69 Type 2 diabetes mellitus with other specified complication; E11.628 Type 2 diabetes mellitus with other skin complications; M06.9 Rheumatoid arthritis, unspecified; E66.01 Morbid (severe) obesity due to excess calories; E11.621 Type 2 diabetes mellitus with foot ulcer; L97.519 Non-pressure chronic ulcer of other part of right foot with unspecified severity; K21.9 Gastro-esophageal reflux disease without esophagitis; E87.5 Hyperkalemia; I10 Essential (primary) hypertension; R79.89 Other specified abnormal findings of blood chemistry; Z79.01 Long term (current) use of anticoagulants; Z86.711 Personal history of pulmonary embolism; Z79.82 Long term (current) use of aspirin
CPT/HCPCS: 36415; 36600; 71045; 73660; 80048; 80053; 80202; 82805; 82948; 83036; 83605; 83735; 85025; 85027; 85610; 85652; 85730; 86140; 87040; 87070; 87075; 87077; 87181; 87205; 88305; 88311; 93005; 93922; 96361; 96365; 96366; 96367; 96375; 96376; 99285; A9270; G0378; J0612; J0692; J0696; J1644; J1815; J1836; J1940; J2250; J2270; J2405; J2704; J3010; J3370; J7030; J7120

== ENCOUNTER 2023-07-19 09:00 | Outpatient (RCR) | payer OTHER, SELFPAY ==
[2023-07-12 11:00] VITALS: BMI 30.2
--- NOTE | ~2023-07-19 | XR_ITS ---
EXAM: XR foot RT min 3V DATE: 07/12/2023 10:05 HISTORY: DIABETIC SORE GREAT TOE . COMPARISON: None available. FINDINGS: The great toe is not well visualized in the lateral view due to overlap. Normal mineralizat ion. No fracture or dislocation. No lytic or blastic lesion. Moderate scattered degenerative change. No erosion or periosteal change. Soft tissue swelling of the great toe. Medial skin defect at the lev el of the distal first phalanx. IMPRESSION: No radiographic evidence of osteomyelitis in the foot. Consider dedicated radiographs of the right great toe. Reviewed, dictated and finalized at location K. CENTER SPECIALIST IMPRESSION: No radiographic evidence of osteomyelitis in the foot. Consider ded icated radiographs of the right great toe.
== END 2023-09-27 08:20 | disposition home or self-care (01) ==
LOC: ANHWOC 09:00
PROVIDERS: PCP Internal Medicine; Visit Provider Nurse Practitioner
DX: E08.621 Diabetes mellitus due to underlying condition with foot ulcer (principal); L97.509 Non-pressure chronic ulcer of other part of unspecified foot with unspecified severity
CPT/HCPCS: 73630; 99213; 99215; G0463; J2250; J3010

== ENCOUNTER 2024-01-07 06:43 | Inpatient (IN) | payer OTHER, SELFPAY ==
[2024-01-07] VITALS (33 sets, daily range): BP systolic 143–167; BP diastolic 79–100; PULSE 103–137; RESP 15–26; TEMP 36.2–37.3; O2SAT 92–98; BMI 35.0
--- NOTE | ~2024-01-07 | US_ITS ---
EXAMINATION: US abdomen limited DATE: 01/07/2024 13:44 INDICATION: Elevated lipase. TECHNIQUE: Multiple grayscale and Doppler ultrasound images of the abdomen were obtained. COMPARISON: CT abdomen and pelvis 11/07/2023 FINDINGS: The visualized portions of the body and tail of the pancreas are normal. The liver demonstr ates steatosis and surface nodularity, consistent with cirrhosis. There is normal flow in main portal vein. The gallbladder is normal in size. No gallstones or gallbladder wall thickening. There is no s onographic Forte's sign. The common duct is normal and measures 4 mm. IMPRESSION: 1. Cirrhosis of the liver. Reviewed, dictated and finalized at location A. IMPRESSION: 1. Cirrhosis of the liver.
--- NOTE | ~2024-01-07 | CT_ITS ---
EXAMINATION: CT abdomen pelvis w con DATE: 01/07/2024 07:55 INDICATION: Nausea, vomiting and constipation. TECHNIQUE: Computed tomography (CT) of the abdomen and pelvis was performed with 100 cc Omnipaque 350 intravenous contrast. The dose-length product was 1628.51 mGy-cm. Automated exposure control and ite rative reconstruction technique were employed. COMPARISON: None. FINDINGS: Lung bases unremarkable. No significant pleural or pericardial effusion. Heart size normal. Fatty infiltration of the liver. Gallbladder is present. The spleen, pancreas, kidneys are unremarka ble. There is bilateral adrenal thickening suggesting adrenal hyperplasia. Nonobstructive bowel gas p attern. Small fat-containing umbilical hernia. Colonic diverticulosis without evidence for diverticul itis. Normal appendix. No abnormal pelvic masses or fluid collections. There is moderate osteoarthrit is of the hips. There is lumbar spondylosis. No significant vascular abnormality. No lymphadenopathy. IMPRESSION: 1. No acute abdominal abnormality. 2: Fatty infiltration of the liver. 3: Bilateral adrenal thickening consistent with hyperplasia. Reviewed, dictated and finalized at location B.
--- NOTE | ~2024-01-07 | CT_ITS ---
EXAMINATION: CTA chest PE protocol DATE: 01/07/2024 11:39 INDICATION: Shortness of breath. Tachycardia. TECHNIQUE: Computed tomography angiography (CTA) of the chest was performed with 100 mL Omnipaque-350 intravenous contrast timed to evaluate the pulmonary arteries. Coronal maximum intensity projection 3D-reconstructions were created by the technologist. Automated exposure control and iterative reconst ruction technique were employed. The dose-length product was 1024.61 mGy-cm. COMPARISON: Chest CT 01/03/2018 FINDINGS: The lungs demonstrate mild atelectasis. No pleural effusion. The heart size is normal. No p ericardial effusion. There is no pulmonary embolus. There is diffuse hepatic steatosis. There is live r surface nodularity, consistent with cirrhosis. The gallbladder is normal in size. There is a perium bilical portacaval shunt. There is severe cervical spondylosis and mild thoracic spondylosis. IMPRESSION: 1. No pulmonary embolus. 2. Cirrhosis of the liver with portal venous hypertension. Reviewed, dictated and finalized at location A.
--- NOTE | 2024-01-07 06:47 | ECG_ITS ---
Test Date: 2024-01-07 06:56:45 Measurements Intervals [place] Rate: 123 P: 46 SD: 169 QRS: -43 QRSD: 73 T: 70 QT: 277 QTc: 397 Interpretive Statements SINUS TACHYCARDIA MARKED LEFT AXIS DEVIATION [QRS AXIS < -30] MINIMAL VOLTAGE CRITERIA FOR LVH, CONSIDER NORMAL VARIANT [MEETS CRITERIA IN ONE OF: R(aVL), S(V1), R(V5), R(V5/V6)+S(V1)] POOR R-WAVE PROGRESSION ABNORMAL ECG No previous ECG available for comparison Electronically Signed On 01-07-2024 15:04:45 CDT by Amauri Nichols M.D.
[2024-01-07 06:55] LABS: Glucose Point of Care 125 mg/dl (65-105)
--- NOTE | 2024-01-07 07:03 | ED.GENADULT ---
HPI - General Adult General Chief complaint: Nausea/Vomiting/Diarrhea Stated complaint: N/V Time Seen by Provider: 01/07/24 06:53 History of Present Illness HPI narrative: 58-year-old old male presenting to the emergency department for evaluation for 2 days nausea vomiting. Patient states that up until about 4 days ago he was struggling with diarrhea for the last 3 months. Patient states that the last 4 days he has had no bowel movements. Patient also does describe nausea and vomiting started yesterday afternoon and progress the night. Patient did not take his daily medications yesterday or today. Patient's primary complaint is uncontrolled nausea and vomiting. Related Data Home Medications Medication Instructions Recorded Confirmed aspirin 81 mg tablet,delayed 81 mg PO DAILY 05/01/19 01/07/24 release (Adult Aspirin Regimen) omeprazole magnesium 20 mg 20 mg PO DAILY 05/01/19 01/07/24 tablet,delayed release (Prilosec OTC) multivitamin,[id number] 1 tablet PO DAILY 05/02/19 01/07/24 (Complete Multivitamin tablet) Allergies Allergy/AdvReac Type Severity Reaction Status Date / Time semaglutide [From Ozempic] AdvReac Mild Vomiting Verified 11/11/23 08:27 cephalexin [From Keflex] AdvReac Vomiting Verified 11/11/23 08:27 Review of Systems Review of Systems: All systems reviewed & are unremarkable except as noted in HPI and below PMFSH Past Medical History Medical History (Updated 01/07/24 @ 16:22 by Елена Guaman APRN) Chronic anticoagulation Cirrhosis Essential (primary) hypertension Factor 5 Leiden mutation, heterozygous Gastroesophageal reflux disease Morbid obesity due to excess calories Portal venous hypertension noted on CT on 01/07/24 Pulmonary emboli Type 2 diabetes mellitus Surgical History Surgical History History of amputation of great toe Right 2023 History of tonsillectomy Family History Family History Father Pharyngeal malignant neoplasm Mother Hypertension Carcinoma of colon Chronic heart failure not affecting current episode of care Osteoarthritis Social History Social History Social History: Surrogate medical decision maker: Cuate Bolanos, friend. Code status: Full code. Smoking status: Never smoker Alcohol intake: current Drinks per week: 2 Alcohol use details: socially- [place] Substance use: never Substance use type: does not use Do You Feel Safe in your Home?: Yes Lack of Transportation: No Lack of Food: Never True Current Housing: I Have Housing Concerned About Future Housing: No Difficulty Paying Gas/Electric Bills: No Difficulty Paying for Meds: No Currently Unemployed: No Education: Master's Degree or Higher Difficulty w/ Childcare or Family Care: No Additional living arrangements comments: Lives in [place]. 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 Gender identity (if verbalized by the patient): Male Spiritual care concerns: No Exam Narrative: APPEARANCE: Ill-appearing HEAD: normocephalic, atraumatic. EYES: PERRLA/EOMI, conjunctivae clear. NOSE: Normal no drainage EARS:TMS clear with good light reflex. THROAT: Pharynx clear, no exudate. NECK: Supple. No adenopathy, no masses. RESPIRATORY: Airway patent, respirations nonlabored. Clear to auscultation bilaterally, no rales, rhonchi, wheezing. CARDIOVASCULAR: Tachycardia ABDOMINAL: Soft, nontender, nondistended, normal bowel sounds MUSCULOSKELETAL: Moves all extremities. Strength/ROM intact, No edema, No calf tenderness. NEURO: Alert. Cranial nerves II through XII intact. Grossly intact SKIN: Warm, dry. Normal Color Course Course Emergency Course: Patient was admitted to the hospitalist Vital Signs Vital signs:
[2024-01-07] MEDS: ONDANSETRON INJ 4 MG/2 ML VIAL IV PUSH (07:05)
[2024-01-07] MEDS: SODIUM CHLORIDE 0.9% IV 1,000 ML 999 ML IV CONT ×3 (07:06→10:36)
[2024-01-07 07:10] LABS: Basophils Absolute Auto 0.1 K/mm3 (0.0-0.1); Basophils Percent Auto 1.2 % (0.2-1.2); Eosinophils Percent Auto 0.3 % (0-4.4); Hematocrit 37.8 % (42.0-52.0); Hemoglobin 12.9 g/dL (14.0-18.0); Immature Granulocyte Absolute 0.04 K/mm3 (0.00-0.031); Immature Granulocyte Percent A 0.6 % (0-0.5); Lymphocytes Absolute Auto 1.64 K/mm3 (0.9-3.2); Lymphocytes Percent Auto 25.1 % (18.3-44.2); Mean Corpuscular HGB Conc 34.1 g/dl (32-36); Mean Corpuscular Hemoglobin 33.4 pg (26-34); Mean Corpuscular Volume 97.9 fl (80-100); Mean Platelet Volume 9.4 fl (7.4-10.4); Monocytes Absolute Auto 0.6 K/mm3 (0.1-0.6); Monocytes Percent Auto 9.5 % (2.6-8.5); Neutrophils Absolute Auto 4.1 K/mm3 (1.3-6.7); Neutrophils Percent Auto 63.3 % (45.5-73.1); Platelet Count Result 347 k/mm3 (150-375); Red Blood Count 3.86 M/mm3 (4.6-6.20); Red Cell Distribution Width 14.6 % (11.5-14.5); White Blood Count 6.5 K/mm3 (4.5-10.0)
[2024-01-07 07:19] LABS: Alanine Aminotransferase 68 U/L (6-50); Albumin Level 5.2 g/dL (3.5-5.1); Alkaline Phosphatase 73 U/L (38-126); Anion Gap 27 mmol/L (4-12); Aspartate Amino Transferase 148 U/L (17-59); Bilirubin,Total 2.5 mg/dL (0.2-1.3); Blood Urea Nitrogen 10 mg/dL (9-20); Calcium 9.4 mg/dL (8.4-10.2); Carbon Dioxide 16 mmol/L (22-30); Chloride 88 mmol/L (98-107); Estimated CRCL calculation 98 ml/min; Estimated Glomerular Filt Rate > 60; Glucose 120 mg/dL (65-110); Lipase 524 U/L (23-300); Potassium 4.6 mmol/L (3.4-5.0); Sodium 131 mmol/L (137-145)
[2024-01-07] MEDS: hydrALAZINE HCL 20 MG/ML VIAL 10 MG IV PUSH (07:44)
[2024-01-07 08:00] LABS: Influenza A QL RT-PCR Negative (Negative); Influenza B QL RT-PCR Negative (Negative); RSV RNA, RT-PCR Negative (Negative); SARS-CoV-2 RNA PCR Negative (Negative)
[2024-01-07] MEDS: HALOPERIDOL LACTATE 5 MG/ML VIAL IM (08:41)
[2024-01-07 09:08] LABS: Add Urine Microscopic? YES; Appearance Urine Clear (Clear); Bacteria Urine None Seen /hpf; Bilirubin Urine Negative (Negative); Blood Urine Negative (Negative); Color Urine Dark Yellow (Yellow); Glucose Urine UA Negative (Negative); Granular Casts Urine Present /lpf; Hyaline Casts Urine Present /lpf; Ketones Urine 2+ mg/dL (Negative); Leukocyte Esterase Ur Negative LEU/UL (Negative); Need Manual Microscopic Reviewed; Nitrate Urine Negative (Negative); Protein Urine 3+ mg/dL (Negative); RBC Urine 0-2 /hpf (0-2); Specific Grav Ur 1.035 (1.001-1.035); Squamous Epithelial Cell Urine None Seen /hpf (Few); WBC Urine 0-5 /hpf (0-3)
[2024-01-07] MEDS: LACTATED RINGERS 1,000 ML 100 ML IV CONT (15:10)
--- NOTE | 2024-01-07 15:28 | PM.IMHP ---
H&P: HPI History of Present Illness Date/Time: 01/07/24 15:28 Chief Complaint: Nausea and Vomiting Narrative: 58 y/o M presents here with nausea and vomiting with PMH of hypertension, factor 5 mutation heterozygous, GERD, morbid obesity, PE, and type 2 diabetes. The patient presents here from home for further evaluation of nausea and vomiting. Patient began experiencing persistent symptom approximately 2 days ago but has been having nausea/vomiting intermittently for the last 2 months. Emesis has been mildly bilious, no blood. Nausea and vomiting are not accompanied by changes in stool color, abdominal distention, abdominal pain, fever, chills, body aches, diarrhea, constipation, or urinary symptoms. Upon arrival to the ED, patient was tachycardic in the 130s and sinus tach on telemetry. Patient reports no recent changes or additions to his medications. Patient is not on injectables for his DM, patient states he was unable to tolerate these due to N/V. ETOH use - socially, 3 times per week with 1-2 drinks per night. Never smoker. Initial VS at presentation: 97.6? F, HR 136, RR 20, 151/100, and 98% on RA. ED workup showed: No leukocytosis, hemoglobin 12.9, sodium 131, creatinine 1.0 and GFR >60, total bilirubin 2.5, AST 148, ALT 68, lipase 524. CT of the abdomen/pelvis showed fatty infiltration of the liver and bilateral adrenal thickening consistent with hyperplasia. Chest CTA showed no PE and cirrhosis of the liver with portal venous hypertension. Ultrasound of the abdomen showed cirrhosis of the liver. Review of Systems Review of Systems: All systems reviewed & are unremarkable except as noted in HPI and below [facility] Past Medical History Medical History (Updated 01/07/24 @ 16:22 by Елена Guaman APRN) Chronic anticoagulation Cirrhosis Essential (primary) hypertension Factor 5 Leiden mutation, heterozygous Gastroesophageal reflux disease Morbid obesity due to excess calories Portal venous hypertension noted on CT on 01/07/24 Pulmonary emboli Type 2 diabetes mellitus Surgical History Surgical History History of amputation of great toe Right 2023 History of tonsillectomy Family History Family History Father Pharyngeal malignant neoplasm Mother Hypertension Carcinoma of colon Chronic heart failure not affecting current episode of care Osteoarthritis Social History Social History Social History: Surrogate medical decision maker: Cuate Bolanos, friend. Code status: Full code. Smoking status: Never smoker Alcohol intake: current Drinks per week: 2 Alcohol use details: socially- Gregory Substance use: never Substance use type: does not use Do You Feel Safe in your Home?: Yes Lack of Transportation: No Lack of Food: Never True Current Housing: I Have Housing Concerned About Future Housing: No Difficulty Paying Gas/Electric Bills: No Difficulty Paying for Meds: No Currently Unemployed: No Education: Master's Degree or Higher Difficulty w/ Childcare or Family Care: No Additional living arrangements comments: Lives in [place]. 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 Gender identity (if verbalized by the patient): Male Spiritual care concerns: No Meds Home Medications and Allergies Home Medications Medication Instructions Recorded Confirmed Type aspirin 81 mg tablet,delayed 81 mg PO DAILY 05/01/19 01/07/24 History release (Adult Aspirin Regimen) omeprazole magnesium 20 mg 20 mg PO DAILY 05/01/19 01/07/24 History tablet,delayed release (Prilosec OTC) multivitamin,[id number] 1 tablet PO DAILY 05/02/19 01/07/24 History (Complete Multivitamin tablet) metformin 1,000 mg tablet 1,000 mg PO BID #180 tabs 07/27
--- NOTE | 2024-01-07 15:32 | ADMGEN ---
This patient, Marc Haddad, was admitted to IMU Room 212-01. Patient/family oriented to hospital policies and general routines including ID bracelet, bed and alarms, visiting hours, pain management, procedures, bathroom and other care routines, personal items, smoking policy, room service/diet, and visiting hours. Information on how to activate the Rapid Response Team has been discussed. Patient/Family are encouraged to report perceived risks to care and to ask questions if they do not understand what they are told or what they should do.
[2024-01-07] MEDS: buPROPion HCL SR (12 HR) 150 MG TAB PO (17:52)
[2024-01-07] MEDS: RIVAROXABAN 20 MG TABLET BY MOUTH (17:52)
[2024-01-07 21:05] LABS: Glucose Point of Care 118 mg/dl (65-105)
[2024-01-07] MEDS: PROCHLORPERAZINE MALEATE 5 MG TABLET PO (21:30)
[2024-01-08] VITALS (17 sets, daily range): BP systolic 133–145; BP diastolic 68–85; PULSE 80–118; RESP 16–20; TEMP 36.4–37.1; O2SAT 93–97
[2024-01-08] MEDS: LACTATED RINGERS 1,000 ML 100 ML IV CONT ×3 (01:05→22:09)
[2024-01-08 04:28] LABS: Basophils Percent Auto 0.4 % (0.2-1.2); Eosinophils Percent Auto 0.6 % (0-4.4); Hematocrit 28.7 % (42.0-52.0); Immature Granulocyte Absolute 0.04 K/mm3 (0.00-0.031); Immature Granulocyte Percent A 0.8 % (0-0.5); Lymphocytes Percent Auto 25.1 % (18.3-44.2); Mean Corpuscular HGB Conc 33.8 g/dl (32-36); Mean Corpuscular Hemoglobin 33.2 pg (26-34); Mean Corpuscular Volume 98.3 fl (80-100); Mean Platelet Volume 9.5 fl (7.4-10.4); Monocytes Absolute Auto 0.6 K/mm3 (0.1-0.6); Monocytes Percent Auto 11.6 % (2.6-8.5); Neutrophils Absolute Auto 3.2 K/mm3 (1.3-6.7); Neutrophils Percent Auto 61.5 % (45.5-73.1); Nucleated Red Blood Cells Perc 0.4 % (0.0-0.2); Platelet Count Result 204 k/mm3 (150-375); Red Blood Count 2.92 M/mm3 (4.6-6.20); Red Cell Distribution Width 14.4 % (11.5-14.5); White Blood Count 5.2 K/mm3 (4.5-10.0)
[2024-01-08 04:39] LABS: Hemoglobin 9.7 g/dL (14.0-18.0)
[2024-01-08 04:40] LABS: Alanine Aminotransferase 52 U/L (6-50); Albumin Level 3.8 g/dL (3.5-5.1); Alkaline Phosphatase 45 U/L (38-126); Anion Gap 14 mmol/L (4-12); Aspartate Amino Transferase 113 U/L (17-59); Bilirubin,Total 2.2 mg/dL (0.2-1.3); Blood Urea Nitrogen 8 mg/dL (9-20); Calcium 8.1 mg/dL (8.4-10.2); Carbon Dioxide 22 mmol/L (22-30); Chloride 89 mmol/L (98-107); Estimated CRCL calculation 124 ml/min; Estimated Glomerular Filt Rate > 60; Glucose 111 mg/dL (65-110); Lipase 482 U/L (23-300); Magnesium 1.4 mg/dL (1.6-2.3); Potassium 4.1 mmol/L (3.4-5.0); Sodium 125 mmol/L (137-145)
[2024-01-08 06:52] LABS: Glucose Point of Care 120 mg/dl (65-105)
[2024-01-08] MEDS: ASPIRIN 81 MG ENTERIC TABLET PO (08:44)
[2024-01-08] MEDS: PANTOPRAZOLE 40 MG TABLET PO (08:44)
[2024-01-08] MEDS: buPROPion HCL SR (12 HR) 150 MG TAB PO ×2 (08:44→17:40)
[2024-01-08] MEDS: SIMVASTATIN 20 MG TABLET PO (08:44)
[2024-01-08] MEDS: lisinopriL 20 MG TABLET PO (08:44)
[2024-01-08] MEDS: MAGNESIUM SULF 2 GM/WATER 50ML 2 GM/50 ML BAG IVPB (09:34)
[2024-01-08 11:48] LABS: Glucose Point of Care 137 mg/dl (65-105)
--- NOTE | 2024-01-08 12:27 | WPDGICN ---
Assessment and Plan Assessment and plan (1) Nausea & vomiting: Qualifiers: Vomiting type: unspecified Qualified Code(s): R11.2 - Nausea with vomiting, unspecified Code(s): R11.2 - Nausea with vomiting, unspecified Status: Acute Assessment and Plan: resolved will advance diet probably will benefit from EGD (also new diagnosis of cirrhosis- check for portal htn) ? component of dysmotility due to DM (2) Diarrhea: Qualifiers: Diarrhea type: unspecified type Qualified Code(s): R19.7 - Diarrhea, unspecified Code(s): R19.7 - Diarrhea, unspecified Status: Acute Assessment and Plan: probably abx related will get c diff never had colonoscoyp, we can do one if still here Wednesday (3) Elevated LFTs: Code(s): R79.89 - Other specified abnormal findings of blood chemistry Status: Acute Assessment and Plan: probably from cirrhosis will complete work up former alcoholic (4) Gastroesophageal reflux disease: Code(s): K21.9 - Gastro-esophageal reflux disease without esophagitis Status: Chronic (5) Cirrhosis: Code(s): K74.60 - Unspecified cirrhosis of liver Status: Acute Assessment and Plan: new diagnosis ? ETOH with +/- MASH given risk factors (6) Tachycardia: Code(s): R00.0 - Tachycardia, unspecified Status: Acute Assessment and Plan: resolved (7) Diabetic foot ulcer associated with diabetes mellitus due to underlying condition: Qualifiers: Diabetic foot ulcer location: toe Laterality: right Non-pressure ulcer stage: unspecified non-pressure ulcer stage Qualified Code(s): E08.621 - Diabetes mellitus due to underlying condition with foot ulcer; L97.519 - Non-pressure chronic ulcer of other part of right foot with unspecified severity Code(s): E08.621 - Diabetes mellitus due to underlying condition with foot ulcer; L97.509 - Non-pressure chronic ulcer of other part of unspecified foot with unspecified severity Status: Acute GI Consult Note Consult date/time: 01/08/24 12:27 Reason for consult: cirrhosis, n/v, diarrhea HPI: Marc Haddad is a 58 year old male with PMH of hypertension, factor 5 mutation heterozygous, GERD, morbid obesity, PE, and type 2 diabetes. He had partial amputation Rt toe because PVD/DM about 3 months then has been dealing with loose stools since because antibiotics. He is admitted with 3 days of nausea and vomiting, this has been going on intermittently for the last 2 months. He used to be heavy drinker up to 1 pint daily for years until 3 years ago, now probably drinks 3 times per week with 1-2 drinks per night. Never smoker. ED workup showed: No leukocytosis, hemoglobin 12.9, sodium 131, creatinine 1.0, total bilirubin 2.5, AST 148, ALT 68, lipase 524. CT of the abdomen/pelvis showed fatty infiltration of the liver and bilateral adrenal thickening consistent with hyperplasia. Chest CTA showed no PE and cirrhosis of the liver with portal venous hypertension. He never has been told about liver disease, no previous scopes. No GIB. no more nausea and tolerating liquid diet, would like to eat more. Review of Systems Constitutional: Constitutional: Denies chills Eyes: Eyes: Denies blurry vision ENT: Reports Normal hearing present Cardiovascular: Cardiovascular: Denies chest pain Respiratory: Respiratory: Denies cough Gastrointestinal: Gastrointestinal: Reports diarrhea, Reports nausea and Reports vomiting Genitourinary: Genitourinary: Denies flank pain Musculoskeletal: Musculoskeletal: Denies neck pain Integumentary/Breasts: Skin/Breast: Denies rash Neurologic: Denies Abnormal speech present Psychiatric: Psychiatric: Denies behavioral changes [facility] Past Medical History Medical History (Updated 01/08/24 @ 12:31 by Rj Delong MD) Chronic anticoagulation Cirrhosis Essential (primary) hypertension Factor 5 Leiden mu
--- NOTE | 2024-01-08 13:13 | PM.IMPN ---
Progress Note: A&P Assessment and Plan (1) Nausea & vomiting: Qualifiers: Vomiting type: unspecified Qualified Code(s): R11.2 - Nausea with vomiting, unspecified Code(s): R11.2 - Nausea with vomiting, unspecified Status: Acute Assessment and Plan: Patient presents with nausea and vomiting that has been intermittent for the past 2 months but more consistent past 2 days. Also with intermittent diarrhea as well. CT abd/pelvis showing no acute abdominal abnormality. Fatty infiltration of the liver and bilateral adrenal thickening consistent with hyperplasia noted. US abdomen showing cirrhosis of the liver and normal GB. Lipase 524 but better on repeat. LFTs elevated so consider viral syndrome. LFTs better as well. Diarrhea going on for months. Stool for culture, CDiff and O&P negative in October. Cologuard negative in October GI consulted. Tolerating clear liquid diet so will advance. Proceed with w/u for cirrhosis. (2) Tachycardia: Code(s): R00.0 - Tachycardia, unspecified Status: Acute Assessment and Plan: EKG showing sinus tachycardia, rate 123, marked left axis deviation, minimal voltage criteria for LVH may be normal variant, poor R-wave progression. CTA Chest showing no pulmonary embolus but does show cirrhosis of the liver with portal venous hypertension. No significant anemia. UA showed 3+ protein and 2+ ketones otherwise unremarkable. COVID, Influenza and RSV PCR negative. Suspect tachycardia is secondary to dehydration. Rehydrate. Telemetry showing intermittent (3) Elevated lipase: Code(s): R74.8 - Abnormal levels of other serum enzymes Status: Acute Assessment and Plan: Lipase 524. Not on injectable meds for DM. ETOH use 3 days per week with 1-2 drinks per day (total 6 drinks per week). Discussed cessation with patient especially given the evidence of cirrhosis on imaging. 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 The patient's blood glucose was reviewed on 01/07 Glucose remains well controlled. Continue AccuCheks covering with sliding scale. Hypoglycemia protocol available as needed. Continue to monitor. (5) Essential (primary) hypertension: Code(s): I10 - Essential (primary) hypertension Status: Chronic Assessment and Plan: Patient's blood pressure was reviewed on 01/07 Blood pressure remains well controlled. Will continue to monitor (6) Cirrhosis: Code(s): K74.60 - Unspecified cirrhosis of liver Status: Acute Assessment and Plan: Possibly related to alcoholism and/or fatty liver. Check baseline labs for cirrhosis workup. Patient to follow with GI (7) Diarrhea: Qualifiers: Diarrhea type: unspecified type Qualified Code(s): R19.7 - Diarrhea, unspecified Code(s): R19.7 - Diarrhea, unspecified Status: Acute Assessment and Plan: Etiology unclear but has had some evaluation recently. Check celiac panel but may benefit from colonoscopy and EGD. (8) Elevated LFTs: Code(s): R79.89 - Other specified abnormal findings of blood chemistry Status: Acute Assessment and Plan: Related to above Follow (9) Factor 5 Leiden mutation, heterozygous: Code(s): D68.51 - Activated protein C resistance Status: Acute Assessment and Plan: Patient with Factor V leiden and hx of PE. On chronci anticoagulati
[2024-01-08] MEDS: FOLIC ACID 1 MG TABLET PO (14:53)
[2024-01-08] MEDS: THIAMINE HCL 100 MG TABLET PO (14:53)
[2024-01-08 15:56] LABS: Glucose Point of Care 128 mg/dl (65-105)
[2024-01-08] MEDS: RIVAROXABAN 20 MG TABLET BY MOUTH (17:40)
[2024-01-08 20:39] LABS: Glucose Point of Care 131 mg/dl (65-105)
[2024-01-09] VITALS (19 sets, daily range): BP systolic 125–153; BP diastolic 84–97; PULSE 92–128; RESP 16–22; TEMP 35.7–36.6; O2SAT 95–99
[2024-01-09 04:14] LABS: Basophils Absolute Auto 0.1 K/mm3 (0.0-0.1); Basophils Percent Auto 1.2 % (0.2-1.2); Eosinophils Absolute Auto 0.1 K/mm3 (0-0.3); Eosinophils Percent Auto 1.5 % (0-4.4); Hematocrit 28.9 % (42.0-52.0); Hemoglobin 9.6 g/dL (14.0-18.0); Immature Granulocyte Absolute 0.01 K/mm3 (0.00-0.031); Immature Granulocyte Percent A 0.2 % (0-0.5); Lymphocytes Absolute Auto 1.36 K/mm3 (0.9-3.2); Lymphocytes Percent Auto 33.6 % (18.3-44.2); Mean Corpuscular HGB Conc 33.2 g/dl (32-36); Mean Corpuscular Hemoglobin 32.9 pg (26-34); Mean Platelet Volume 9.4 fl (7.4-10.4); Monocytes Absolute Auto 0.3 K/mm3 (0.1-0.6); Monocytes Percent Auto 8.4 % (2.6-8.5); Neutrophils Absolute Auto 2.2 K/mm3 (1.3-6.7); Neutrophils Percent Auto 55.1 % (45.5-73.1); Platelet Count Result 170 k/mm3 (150-375); Red Blood Count 2.92 M/mm3 (4.6-6.20); Red Cell Distribution Width 14.4 % (11.5-14.5); White Blood Count 4.1 K/mm3 (4.5-10.0)
[2024-01-09 04:27] LABS: Ammonia < 9 umol/L (9-30)
[2024-01-09 04:44] LABS: Erythrocyte Sedimentation Rate 32 mm/hr (0-20)
[2024-01-09 04:46] LABS: Iron 91 ug/dL (49-181)
[2024-01-09 04:50] LABS: Alanine Aminotransferase 49 U/L (6-50); Albumin Level 3.5 g/dL (3.5-5.1); Alkaline Phosphatase 52 U/L (38-126); Anion Gap 8 mmol/L (4-12); Aspartate Amino Transferase 99 U/L (17-59); Blood Urea Nitrogen 5 mg/dL (9-20); Calcium 8.7 mg/dL (8.4-10.2); Carbon Dioxide 28 mmol/L (22-30); Chloride 93 mmol/L (98-107); Estimated CRCL calculation 111 ml/min; Estimated Glomerular Filt Rate > 60; Glucose 112 mg/dL (65-110); Lipase 545 U/L (23-300); Potassium 3.6 mmol/L (3.4-5.0); Sodium 129 mmol/L (137-145)
[2024-01-09 04:56] LABS: Percent Iron Saturation 33 % (20-50)
[2024-01-09 05:24] LABS: Hepatitis B Surface Antigen Negative (Negative)
[2024-01-09 05:30] LABS: HAV RESULT Negative (Negative); Hepatitis B Core IgM Result Negative (Negative)
[2024-01-09 05:41] LABS: Hepatitis C Virus Antibody Negative (Negative)
[2024-01-09 05:54] LABS: Folic Acid 10.2 ng/mL (2.76->20)
[2024-01-09 07:12] LABS: Glucose Point of Care 118 mg/dl (65-105)
[2024-01-09] MEDS: LACTATED RINGERS 1,000 ML 100 ML IV CONT (08:09)
[2024-01-09] MEDS: FOLIC ACID 1 MG TABLET PO (09:06)
[2024-01-09] MEDS: SIMVASTATIN 20 MG TABLET PO (09:06)
[2024-01-09] MEDS: buPROPion HCL SR (12 HR) 150 MG TAB PO ×2 (09:06→16:28)
[2024-01-09] MEDS: PANTOPRAZOLE 40 MG TABLET PO (09:07)
[2024-01-09] MEDS: THIAMINE HCL 100 MG TABLET PO (09:07)
[2024-01-09] MEDS: ASPIRIN 81 MG ENTERIC TABLET PO (09:07)
[2024-01-09] MEDS: lisinopriL 20 MG TABLET PO (09:07)
[2024-01-09 11:16] LABS: Glucose Point of Care 125 mg/dl (65-105)
--- NOTE | 2024-01-09 12:39 | PC.NURSE ---
Dr. Douglas updated on plan of care, MD calixto with patient staying tonight for pending Endoscopy tomorrow. Dr. Alexis and patient notified of Dr. Douglas plan of care.
--- NOTE | 2024-01-09 13:38 | WPDGIPROGNO ---
Progress Note: A&P Assessment and Plan (1) Nausea & vomiting: Qualifiers: Vomiting type: unspecified Qualified Code(s): R11.2 - Nausea with vomiting, unspecified Code(s): R11.2 - Nausea with vomiting, unspecified Status: Acute Assessment and Plan: resolved will evaluate with egd probably also component of dysmotility (h/o DM) (2) Cirrhosis: Code(s): K74.60 - Unspecified cirrhosis of liver Status: Acute Assessment and Plan: former alcohol abuse, also risk factor for mash he can follow-up in office egd to assess if portal htn/varices (3) Elevated LFTs: Code(s): R79.89 - Other specified abnormal findings of blood chemistry Status: Acute Assessment and Plan: probably from cirrhosis monitor (4) Diarrhea: Qualifiers: Diarrhea type: unspecified type Qualified Code(s): R19.7 - Diarrhea, unspecified Code(s): R19.7 - Diarrhea, unspecified Status: Acute Assessment and Plan: colonoscopy tomorrow, never had one (5) Diabetic foot ulcer associated with diabetes mellitus due to underlying condition: Qualifiers: Diabetic foot ulcer location: toe Laterality: right Non-pressure ulcer stage: unspecified non-pressure ulcer stage Qualified Code(s): E08.621 - Diabetes mellitus due to underlying condition with foot ulcer; L97.519 - Non-pressure chronic ulcer of other part of right foot with unspecified severity Code(s): E08.621 - Diabetes mellitus due to underlying condition with foot ulcer; L97.509 - Non-pressure chronic ulcer of other part of unspecified foot with unspecified severity Status: Acute Subjective Date/time seen: 01/09/24 13:38 Interval history: doing fairly well, no more nausea had semi formed stool Review of Systems Review of Systems: All systems reviewed & are unremarkable except as noted in HPI and below Exam Const: General: comfortable and no acute distress HENMT: Face/Nose/Sinus: Normal nares present Eyes: General: appearance normal, both eyes and all related structures Neck: Neck: supple Resp: Auscultation: clear to auscultation bilaterally Cardio: Rate: regular rate Rhythm: regular rhythm GI: Inspection: non-distended GI Palp: Yes Soft to palpation and No Tenderness to palpation present (GI) Auscultation: normal bowel sounds Skin: General skin exam: normal color Neuro: Speech: normal speech Motor exam (neuro): 5/5 motor strength present throughout Extrem: Other: venous stasis rt partial toe amputation Psych: Mental Status: mental status grossly normal Objective Data Vital Signs Vital Signs: Vital Signs - 24 hr 01/08/24 14:00 01/08/24 15:43 01/08/24 16:00 Temperature 98.6 F Pulse Rate 108 H 97 97 Respiratory Rate 16 Blood Pressure 141/81 H Pulse Oximetry 96 Oxygen Delivery 01/08/24 18:00 01/08/24 16:00 01/08/24 20:05 Temperature 97.6 F Pulse Rate 99 109 H Respiratory Rate 16 Blood Pressure 145/85 H Pulse Oximetry 97 93 Oxygen Delivery Room Air 01/08/24 20:00 01/08/24 21:26 01/09/24 00:13 Temperature 97.8 F Pulse Rate 109 H 100 Respiratory Rate 16 16 Blood Pressure 153/94 H Pulse Oximetry 93 93 95 Oxygen Delivery Room Air Room Air 01/08/24 20:00 01/08/24 22:00 01/09/24 00:00 Temperature Pulse Rate 108 H 104 H 100 Respiratory Rate 16 Blood Pressure Pulse Oximetry 95 Oxygen Delivery Room Air 01/09/24 00:00 01/09/24 01:27 01/09/24 04:46 Temperature 97.7 F Pulse Rate 98 95 94 Respiratory Rate 16 Blood Pressure 147/84 H Pulse Oximetry 95 Oxygen Delivery 01/09/24 04:00 01/09/24 04:00 01/09/24 06:00 Temperature Pulse Rate 100 100 96 Respiratory Rate 16 Blood Pressure Pulse Oximetry 95 Oxygen Delivery Room Air 01/09/24 07:23 01/09/24 08:00 01/09/24 09:10 Temperature 96.8 F L Pulse Rate 94 Respiratory Rate 22 H Blood Pressure 143/85
--- NOTE | 2024-01-09 15:42 | PM.IMPN ---
Progress Note: A&P Assessment and Plan (1) Nausea & vomiting: Qualifiers: Vomiting type: unspecified Qualified Code(s): R11.2 - Nausea with vomiting, unspecified Code(s): R11.2 - Nausea with vomiting, unspecified Status: Acute Assessment and Plan: Patient presents with nausea and vomiting that has been intermittent for the past 2 months but more consistent past 2 days. Also with intermittent diarrhea as well. CT abd/pelvis showing no acute abdominal abnormality. Fatty infiltration of the liver and bilateral adrenal thickening consistent with hyperplasia noted. US abdomen showing cirrhosis of the liver and normal GB. Lipase 524 but up/down on repeat. LFTs were elevated so consider viral syndrome. LFTs better Diarrhea going on for months. Stool for culture, CDiff and O&P negative in October. Cologuard negative in October GI consulted. Tolerating regular food now Workup for cirrhosis in process. Plan for EGD and colonoscopy tomorrow. (2) Tachycardia: Code(s): R00.0 - Tachycardia, unspecified Status: Acute Assessment and Plan: EKG showing sinus tachycardia, rate 123, marked left axis deviation, minimal voltage criteria for LVH may be normal variant, poor R-wave progression. CTA Chest showing no pulmonary embolus but does show cirrhosis of the liver with portal venous hypertension. No significant anemia. UA showed 3+ protein and 2+ ketones otherwise unremarkable. COVID, Influenza and RSV PCR negative. Telemetry showing intermittent sinus tachycardia. Suspect tachycardia is secondary to dehydration. Consider anxiety as well since still tachycardic when awake but better when sleeping Monitor on telemetry (3) Elevated lipase: Code(s): R74.8 - Abnormal levels of other serum enzymes Status: Acute Assessment and Plan: Lipase 524. Not on injectable meds for DM. ETOH use 3 days per week with 1-2 drinks per day (total 6 drinks per week). Discussed cessation with patient especially given the evidence of cirrhosis on imaging. Repeat values up and down Continue thiamine and folate (4) Cirrhosis: Code(s): K74.60 - Unspecified cirrhosis of liver Status: Acute Assessment and Plan: Possibly related to alcoholism and/or fatty liver. Viral hepatitis panel negative. TSH and folate normal. B12 level low end of normal. Ammonia level <9. Iron studies are normal. LFTs are improving Patient to follow with GI. Check HIV (patient informed and okay with checking). Check MMA and replace b12. 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 The patient's blood glucose was reviewed on 01/08 Glucose remains well controlled. Continue AccuCheks covering with sliding scale. Hypoglycemia protocol available as needed. Continue to monitor. (6) Essential (primary) hypertension: Code(s): I10 - Essential (primary) hypertension Status: Chronic Assessment and Plan: Patient's blood pressure was reviewed on 01/08 Blood pressure remains well controlled. Will continue to monitor (7) Diarrhea: Qualifiers: Diarrhea type: unspecified type Qualified Code(s): R19.7 - Diarrhea, unspecified Code(s): R19.7 - Diarrhea, unspecified Status: Acute Assessment and Plan: Etiology unclear but has had some evaluation recently. Celiac panel pending. Plan for colonoscopy and EGD in am. (8) Elevated LFTs: Code(s): R79.89 - Other specified abnormal findings of blood chemistry St
[2024-01-09] MEDS: polyethylene glycoL 3350 238 GM BOTTLE PO (16:43)
[2024-01-09 18:57] LABS: Glucose Point of Care 134 mg/dl (65-105)
[2024-01-09 20:13] LABS: Glucose Point of Care 158 mg/dl (65-105)
[2024-01-10] VITALS (17 sets, daily range): BP systolic 110–152; BP diastolic 82–95; PULSE 82–125; RESP 16–29; TEMP 35.9–36.6; O2SAT 98–100
[2024-01-10] MEDS: MAGNESIUM CITRATE 300 ML BTL PO (01:12)
[2024-01-10 04:37] LABS: Basophils Absolute Auto 0.1 K/mm3 (0.0-0.1); Basophils Percent Auto 1.1 % (0.2-1.2); Eosinophils Absolute Auto 0.1 K/mm3 (0-0.3); Eosinophils Percent Auto 1.8 % (0-4.4); Hematocrit 33.3 % (42.0-52.0); Immature Granulocyte Absolute 0.07 K/mm3 (0.00-0.031); Immature Granulocyte Percent A 1.3 % (0-0.5); Lymphocytes Absolute Auto 1.45 K/mm3 (0.9-3.2); Lymphocytes Percent Auto 26.4 % (18.3-44.2); Mean Corpuscular Hemoglobin 33.1 pg (26-34); Mean Corpuscular Volume 100.3 fl (80-100); Mean Platelet Volume 9.8 fl (7.4-10.4); Monocytes Absolute Auto 0.5 K/mm3 (0.1-0.6); Monocytes Percent Auto 9.7 % (2.6-8.5); Neutrophils Absolute Auto 3.3 K/mm3 (1.3-6.7); Neutrophils Percent Auto 59.7 % (45.5-73.1); Platelet Count Result 214 k/mm3 (150-375); Red Blood Count 3.32 M/mm3 (4.6-6.20); Red Cell Distribution Width 14.2 % (11.5-14.5); White Blood Count 5.5 K/mm3 (4.5-10.0)
[2024-01-10 04:49] LABS: Alanine Aminotransferase 70 U/L (6-50); Albumin Level 4.3 g/dL (3.5-5.1); Alkaline Phosphatase 66 U/L (38-126); Anion Gap 11 mmol/L (4-12); Aspartate Amino Transferase 132 U/L (17-59); Bilirubin,Total 1.5 mg/dL (0.2-1.3); Blood Urea Nitrogen 7 mg/dL (9-20); Calcium 9.2 mg/dL (8.4-10.2); Carbon Dioxide 25 mmol/L (22-30); Chloride 91 mmol/L (98-107); Estimated CRCL calculation 102 ml/min; Estimated Glomerular Filt Rate > 60; Glucose 144 mg/dL (65-110); Lipase 627 U/L (23-300); Magnesium 1.8 mg/dL (1.6-2.3); Phosphorus 2.7 mg/dL (2.5-4.5); Potassium 3.5 mmol/L (3.4-5.0); Sodium 127 mmol/L (137-145)
[2024-01-10 05:29] LABS: HIV 1/2 Ab P24 Ag Result Negative (Negative)
[2024-01-10 07:52] LABS: Glucose Point of Care 121 mg/dl (65-105)
[2024-01-10] MEDS: buPROPion HCL SR (12 HR) 150 MG TAB PO (08:50)
[2024-01-10] MEDS: FOLIC ACID 1 MG TABLET PO (08:50)
[2024-01-10] MEDS: ASPIRIN 81 MG ENTERIC TABLET PO (08:50)
[2024-01-10] MEDS: THIAMINE HCL 100 MG TABLET PO (08:50)
[2024-01-10] MEDS: SIMVASTATIN 20 MG TABLET PO (08:50)
[2024-01-10] MEDS: lisinopriL 20 MG TABLET PO (08:50)
[2024-01-10] MEDS: CYANOCOBALAMIN 1,000 MCG TABLET 1000 MCG PO (08:50)
[2024-01-10] MEDS: PANTOPRAZOLE 40 MG TABLET PO (08:50)
[2024-01-10] MEDS: CYANOCOBALAMIN INJ 1,000 MCG/ML VIAL 1000 MCG IM (08:50)
--- NOTE | 2024-01-10 10:45 | PC.NURSE ---
Patient off floor to GI lab via wheelchair.
[2024-01-10 11:08] LABS: Glucose Point of Care 113 mg/dl (65-105)
--- NOTE | 2024-01-10 11:08 | WPDANESEPPF ---
Anes - Initial Pre Proc Eval Procedure: Operation Date: 01/10/24 15:30 Proposed Procedures p Esophagogastroduodenoscopy & Colonoscopy - Rj Delong MD Date/Time: 01/10/24 11:08 Surgeon: Palomo Alexis MD Pre Op Diagnosis: Tachycardia/Nausea Vomiting Patient Data Age: 58 Gender: M Height: 1.91 m Weight: 133.3 kg Last Vital Signs Temp 96.7 F L 01/10/24 10:55 Pulse 98 01/10/24 10:55 Resp 16 01/10/24 10:55 BP 137/92 H 01/10/24 10:55 Pulse Ox 99 01/10/24 10:55 O2 Del Method Room Air 01/10/24 10:55 Allergies Allergy/AdvReac Type Severity Reaction Status Date / Time semaglutide [From Ozempic] AdvReac Mild Vomiting Verified 11/11/23 08:27 cephalexin [From Keflex] AdvReac Vomiting Verified 11/11/23 08:27 Home Medications Medication Instructions Recorded Confirmed Type aspirin 81 mg tablet,delayed 81 mg PO DAILY 05/01/19 01/07/24 History release (Adult Aspirin Regimen) omeprazole magnesium 20 mg 20 mg PO DAILY 05/01/19 01/07/24 History tablet,delayed release (Prilosec OTC) multivitamin,ir-dqfb-iwjneyeg 1 tablet PO DAILY 05/02/19 01/07/24 History (Complete Multivitamin tablet) metformin 1,000 mg tablet 1,000 mg PO BID #180 tabs 07/28/23 01/07/24 Rx simvastatin 20 mg tablet 20 mg PO DAILY #90 tabs 09/06/23 01/07/24 Rx bupropion HCl 150 mg tablet,12 hr 150 mg PO BID #180 tabs 10/01/23 01/07/24 Rx sustained-release rivaroxaban 20 mg tablet (Xarelto) See Rx Instructions .Route 11/12/23 01/07/24 Rx .COMPLEX #90 tabs lisinopril 20 mg tablet 20 mg PO DAILY #90 tabs 12/07/23 01/07/24 Rx hydroxyzine HCl 25 mg tablet See Rx Instructions .Route 12/17/23 01/07/24 Rx .COMPLEX #180 tabs prochlorperazine maleate 5 mg 5 mg PO Q8H PRN nausea and 12/17/23 01/07/24 Rx tablet (Compazine) vomiting #20 tabs Laboratory Tests 01/09/24 01/09/24 01/09/24 11:10 15:49 20:11 WBC RBC Hgb Hct MCV MCH MCHC RDW Plt Count MPV Immature Gran % (Auto) Neut % (Auto) Lymph % (Auto) [place] % (Auto) Eos % (Auto) Baso % (Auto) Lymph # (Auto) [place] # (Auto) Eos # (Auto) Baso # (Auto) Abs Immat Gran (auto) Absolute Neuts (auto) Absolute Nucleated RBC Nucleated RBC % PT INR APTT Sodium Potassium Chloride Carbon Dioxide Anion Gap BUN Creatinine Estim Creat Clear Calc Estimated GFR Glucose POC Capillary Glucose 125 H mg/dl 134 H mg/dl 158 H mg/dl (65-105) (65-105) (65-105) Calcium Phosphorus Magnesium Total Bilirubin AST ALT Alkaline Phosphatase Total Protein Albumin Lipase Methylmalonic Acid HIV 1&2 Ab/P24 Ag 4thGn 01/10/24 01/10/24 04:09 07:38 WBC 5.5 K/mm3 (4.5-10.0) RBC 3.32 L M/mm3 (4.6-6.20) Hgb 11.0 L g/dL (14.0-18.0) Hct 33.3 L % (42.0-52.0) MCV 100.3 H fl (80-100) MCH 33.1 pg (26-34) MCHC 33.0 g/dl (32-36) RDW 14.2 % (11.5-14.5) Plt Count 214 k/mm3 (150-375) MPV 9.8 fl (7.4-10.4) Immature Gran % (Auto) 1.3 H % (0-0.5) Neut % (Auto) 59.7 % (45.5-73.1) Lymph % (Auto) 26.4 % (18.3-44.2) [place] % (Auto) 9.7 H % (2.6-8.5) Eos % (Auto) 1.8 % (0-4.4) Baso % (Auto) 1.1 % (0.2-1.2) Lymph # (Auto) 1.45 K/mm3 (0.9-3.2) [place] # (Auto) 0.5 K/mm3 (0.1-0.6) Eos # (Auto) 0.1 K/mm3 (0-0.3) Baso # (Auto)
--- NOTE | 2024-01-10 11:37 | SUR.OPER ---
EGD END 1138, COLONOSCOPY STARTED AT 1142
[2024-01-10] MEDS: LACTATED RINGERS 1,000 ML 150 ML IV CONT (11:56)
--- NOTE | 2024-01-10 12:01 | PC.NURSE ---
Received report from CHARLY Dugan.
--- NOTE | 2024-01-10 12:01 | PCNFU ---
Nutrition Follow-Up Complete: Inadequate oral intake related to acute nausea,vomiting as evidenced by NPO, pt report Goal:Diet advancement Optimize PO diet when advanced Pt meeting goal, continue with same goals. Pt current nutrition is NPO for EGD but was on a Diabetic diet. Nutrition recommendation: resume diet post procedure Last recorded weight is 133.3 kg. Bowel Motility: +BM 01/09 Labs Reviewed: Hgb:11, HCT:33.3, NA:127, glu:144 Meds Noted: novolog, lactated ringers, protonix Skin: no skin issues noted Additional Notes: Pt NPO today for EGD, was on a diabetic diet over the weekend with good intake at 75-100%. Recommend to resume diet post procedure. Encourage po intake. Monitoring diet advancement, weights, labs, plan of care Follow up in 3 days
--- NOTE | 2024-01-10 12:31 | PC.NURSE ---
Patient returned to room via stretcher with out issue.
[2024-01-10 13:30] LABS: Ceruloplasmin 19 mg/dL (14-30)
--- NOTE | 2024-01-10 14:05 | PM.DS ---
DS: Admitting Diagnosis Discharge Date 01/10/24 Admitting Diagnosis Nausea DS: Discharge Diagnosis Discharge Diagnosis (1) Nausea & vomiting: Qualifiers: Vomiting type: unspecified Qualified Code(s): R11.2 - Nausea with vomiting, unspecified Code(s): R11.2 - Nausea with vomiting, unspecified Status: Acute (2) Tachycardia: Code(s): R00.0 - Tachycardia, unspecified Status: Acute (3) Elevated lipase: Code(s): R74.8 - Abnormal levels of other serum enzymes Status: Acute (4) Cirrhosis: Code(s): K74.60 - Unspecified cirrhosis of liver Status: Acute (5) Type 2 diabetes mellitus: Qualifiers: Diabetes mellitus complication detail: with unspecified neuropathy Diabetes mellitus complication status: with neurologic complications 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: without long-term use Qualified Code(s): E11.40 - Type 2 diabetes mellitus with diabetic neuropathy, unspecified Code(s): E11.9 - Type 2 diabetes mellitus without complications Status: Chronic (6) Essential (primary) hypertension: Code(s): I10 - Essential (primary) hypertension Status: Chronic (7) Diarrhea: Qualifiers: Diarrhea type: unspecified type Qualified Code(s): R19.7 - Diarrhea, unspecified Code(s): R19.7 - Diarrhea, unspecified Status: Acute (8) Elevated LFTs: Code(s): R79.89 - Other specified abnormal findings of blood chemistry Status: Acute (9) Factor 5 Leiden mutation, heterozygous: Code(s): D68.51 - Activated protein C resistance Status: Acute DS: Summary Hospital Course Reason for hospitalization: 58yo male with HTN, Factor V Leiden with hx of PE, DM and obesity here for nausea and vomiting. Please see H&P for details. Hospital Course: Patient presents with nausea and vomiting that has been intermittent for the past 2 months but more consistent past 2 days. Also with intermittent diarrhea as well. CT abd/pelvis showing no acute abdominal abnormality. Fatty infiltration of the liver and bilateral adrenal thickening consistent with hyperplasia noted. US abdomen showing cirrhosis of the liver and normal GB. Lipase 524. Not on injectable meds for DM. ETOH use average 6 drinks per week. Discussed cessation with patient especially given the evidence of cirrhosis on imaging. Repeat lipase up and down. Started on thiamine and folate. LFTs were elevated as well felt related to cirrhosis. Cirrhosis possibly related to alcoholism and/or fatty liver. Viral hepatitis panel and HIV negative. TSH and folate normal. B12 level low end of normal. MMA ordered and B12 replaced. Ammonia level <9. Iron studies were normal. Diarrhea going on for months. Stool for culture, CDiff and O&P negative in October. Cologuard negative in October. Patient was intermittently tachycardic. EKG showing sinus tachycardia, rate 123, marked left axis deviation, minimal voltage criteria for LVH may be normal variant, poor R-wave progression. CTA Chest showing no pulmonary embolus but does show cirrhosis of the liver with portal venous hypertension. No significant anemia. UA showed 3+ protein and 2+ ketones otherwise unremarkable. COVID, Influenza and RSV PCR negative. Telemetry showing intermittent sinus tachycardia. Suspect tachycardia is secondary to dehydration and/or pain and/or n/v. Consider anxiety as well since tachycardic when awake but better when sleeping. Heart rate was normal or only mildly elevated a majority of the time. GI was consulted. Patient underwent EGD showing reflux esophagitis Grade II and moderate duodenitis. Biopsies taken. Please see report for details. Colonoscopy showing colon polyps that were removed. Biopsies taken. Please see report for details. Status at Discharge Cognitive/behavioral status at discharge: stable Time Spent with Patient Time attestation: Total time spent providing and/or coordinating dis
[2024-01-12 04:07] LABS: Immunoglobulin A 190 mg/dL (47-310); TTG IGA AB <1.0 U/mL
--- NOTE | 2024-01-12 13:45 | PC.NURSE ---
Celiac- No evidence of celiac disease. Ceruloplasmin - WNL at 19 ANTIONETTE- negative Stomach bx- No histologic abnormalities. No H. Pylori Colon bx- Descending colon polyp- benign. Prolapsed Mucosa. Tubular adenoma. No histologic abnormality. No microscopic colitis. Dr. Vanesa nugent.
[2024-01-13 15:05] LABS: Methylmalonic Acid 309 nmol/L (69-390)
--- NOTE | 2024-01-14 11:19 | PC.NURSE ---
Methyl Malonic Acid is [facility] at [address]. Dr. Vanesa nugent.
--- NOTE | 2024-01-17 06:35 | PC.NURSE ---
A1AT is nml with PI*MM. Dr. Alexis aware.
[2024-01-24 15:54] LABS: Mitochondrial (M2) Ab (IgG) <20.0 U
--- NOTE | 2024-01-25 13:42 | PC.NURSE ---
A1AT is nml with PI*MM M2Ab is nml at <20.0 Dr. Vanesa nugent.
--- NOTE | 2024-01-26 08:11 | PC.NURSE ---
Pathology and requested labs faxed to Dr. Bradley.
== END 2024-01-10 15:00 | disposition home or self-care (01) | DRG 392 ==
LOC: ANHED 14:54 → ANHIMU 14:59
PROVIDERS: Internal Medicine; Internal Medicine Gastroenterology; Student in an Organized Health Care Education/Training Program; Admitting Provider Internal Medicine; Emergency Provider Emergency Medicine; PCP Internal Medicine; Visit Provider Internal Medicine
PROC: 0DJ08ZZ Inspection of Upper Intestinal Tract, Via Natural or Artificial Opening Endoscopic (ICD-10-PCS; CPT 43235; principal; 2024-01-10 15:30)
DX: K21.00 Gastro-esophageal reflux disease with esophagitis, without bleeding (principal); D68.51 Activated protein C resistance; K76.6 Portal hypertension; K29.80 Duodenitis without bleeding; R11.2 Nausea with vomiting, unspecified; Z20.822 Contact with and (suspected) exposure to COVID-19; E66.01 Morbid (severe) obesity due to excess calories; I10 Essential (primary) hypertension; R74.8 Abnormal levels of other serum enzymes; E11.621 Type 2 diabetes mellitus with foot ulcer; L97.519 Non-pressure chronic ulcer of other part of right foot with unspecified severity; K63.5 Polyp of colon; D12.0 Benign neoplasm of cecum; E11.40 Type 2 diabetes mellitus with diabetic neuropathy, unspecified; K70.30 Alcoholic cirrhosis of liver without ascites; K70.0 Alcoholic fatty liver; F10.20 Alcohol dependence, uncomplicated; R00.0 Tachycardia, unspecified; Z68.36 Body mass index [BMI] 36.0-36.9, adult; Z86.711 Personal history of pulmonary embolism; Z79.82 Long term (current) use of aspirin; Z79.01 Long term (current) use of anticoagulants; Z89.411 Acquired absence of right great toe; E86.0 Dehydration
CPT/HCPCS: 36415; 71275; 74177; 76705; 80053; 80074; 81001; 82104; 82140; 82390; 82533; 82607; 82728; 82746; 82784; 82948; 83520; 83540; 83550; 83690; 83735; 83921; 84100; 84443; 85025; 85610; 85652; 85730; 86038; 86039; 86364; 86703; 87637; 88305; 93005; 96361; 96365; 96366; 96372; 96374; 96375; 97110; 97161; 97165; 97530; 99285; A9270; G0378; G0432; J0360; J1630; J2405; J2704; J3420; J3475; J7030; J7120; Q9967

== ENCOUNTER 2024-03-07 07:22 | Outpatient (CLI) | payer OTHER, SELFPAY ==
--- NOTE | 2024-03-07 07:36 | ECHO_ITS ---
Patient Info Name: Marc Haddad Age: 58 years : 1965 Gender: Male Ht: 65 in Wt: 330 lbs BSA: 2.72 m2 HR: 110 bpm BP: 126 / 88 mmHg Technical Quality: Fair Exam Date: 03/07/2024 8:02 AM Exam Location: Echo Lab Patient Status: Outpatient Admit Date: 03/07/2024 Staff Ordering Physician: Destiney Almazan NP Milk Tester: Kellen Vigil RDCS Attending Provider: Destiney Almazan NP Referring Physician: Norah SU; Exam Type: CA echo doppler color flow Study Info Indications R00.0 - Tachycardia, unspecified Complete two-dimensional, color flow and Doppler transthoracic echocardiogram is performed. Summary 1. Complete two-dimensional, color flow and Doppler transthoracic echocardiogram is performed. 2. Left ventricular chamber dimension is normal. 3. Left ventricular systolic function is normal, estimated at 60-65%. 4. There is mild concentric increased left ventricular wall thickness. 5. The left ventricular diastolic function is grade I diastolic dysfunction. 6. E/e' 6 is not elevated. 7. There is mild aortic valve sclerosis. 8. There is trace tricuspid valve regurgitation. 9. No pulmonary hypertension, estimated pulmonary arterial systolic pressure is 38 mmHg. Left Ventricle E/e' 6 is not elevated. Left ventricular chamber dimension is normal. Left ventricular systolic function is normal, estimated at 60-65%. There is mild concentric increased left ventricular wall thickness. The left ventricular diastolic function is grade I diastolic dysfunction. Right Ventricle Right ventricular chamber dimension is normal. Right ventricular systolic function is normal. Left Atria Left atrial chamber dimension is normal. Right Atria Right atrial chamber dimension is normal. Aortic Valve The aortic valve is trileaflet. There is mild aortic valve sclerosis. There is no aortic valve stenosis. There is no aortic valve regurgitation. Pulmonic Valve There is no pulmonic regurgitation. Mitral Valve There is no mitral valve stenosis. There is no mitral valve regurgitation. Tricuspid Valve There is trace tricuspid valve regurgitation. No pulmonary hypertension, estimated pulmonary arterial systolic pressure is 38 mmHg. Pericardium/Pleural There is no pericardial effusion. Inferior Vena Cava Normal inferior vena cava with >50% collapse upon inspiration consistent with normal right atrial pressure, 5 mmHg. Aorta The aortic root size at the sinus of Valsalva is normal. Left Ventricular Outflow Tract Name Value Normal LVOT 2D LVOT Diameter 2.3 cm LVOT Doppler LVOT Peak Gradient 6 mmHg LVOT Mean Gradient 3 mmHg LVOT VTI 20 cm LVOT VTI/AV VTI Ratio 1.2 LVOT Stroke Volume 81 ml LVOT CO 8.0 l/min LVOT CI 3.0 l/min/m2 Pulmonic Valve Name Value Normal RVOT Doppler
== END 2024-03-07 07:23 | disposition home or self-care (01) ==
LOC: ANHCARD 07:23
PROVIDERS: PCP Internal Medicine; Visit Provider Nurse Practitioner
DX: R00.0 Tachycardia, unspecified (principal); I10 Essential (primary) hypertension
CPT/HCPCS: 93306

== ENCOUNTER 2024-06-06 16:00 | Emergency (ER) | payer OTHER, SELFPAY ==
[2024-06-06] VITALS (17 sets, daily range): BP systolic 142–164; BP diastolic 80–89; PULSE 93–111; RESP 15–41; TEMP 36.6; O2SAT 95–100
--- NOTE | ~2024-06-06 | XR_ITS ---
CHEST RADIOGRAPH CLINICAL HISTORY: swelling, sob, UNEXPLAINED WEIGHT GAIN . COMPARISON: 07/21/2023 TECHNIQUE: Single portable view of the chest. FINDINGS The cardiomediastinal silhouette is unremarkable. The lungs are clear. IMPRESSION: No focal infiltrate or effusion. Reviewed, dictated and finalized at location A. TICS TEACHER
--- NOTE | ~2024-06-06 | US_ITS ---
EXAMINATION: US venous doppler [facility] DATE: 06/06/2024 17:51 INDICATION: Lower extremity swelling, right greater than left TECHNIQUE: Grayscale ultrasound images without and with compression and Doppler ultrasound images of the bilateral lower extremity veins were obtained. COMPARISON: 01/03/2018 FINDINGS: The visualized portions of right common femoral vein, profunda (deep) femoral vein, femoral vein, pop liteal vein, peroneal veins, posterior tibial veins, and greater saphenous vein outflow are patent. The visualized portions of left common femoral vein, profunda femoral vein, femoral vein, popliteal v ein, peroneal veins, posterior tibial veins, and greater saphenous vein outflow are patent. IMPRESSION: 1. No deep venous thrombosis within the bilateral lower extremities, as detailed above. Reviewed, dictated and finalized at location A. [facility] IMPRESSION: 1. No deep venous thrombosis within the bilateral lower extremities, as detail ed above.
--- NOTE | 2024-06-06 16:14 | ECG_ITS ---
Test Date: 2024-06-06 16:23:31 Measurements Intervals [place] Rate: 102 P: 23 [place]: 176 QRS: -38 QRSD: 101 T: 61 QT: 330 QTc: 431 Interpretive Statements SINUS TACHYCARDIA LEFT AXIS DEVIATION [QRS AXIS < -30] LOW QRS VOLTAGE IN PRECORDIAL LEADS [QRS DEFLECTION < 1.0 mV IN CHEST LEADS] Compared to ECG 01/07/2024 06:56:45 NO SIGNIFICANT CHANGES Electronically Signed On 06-07-2024 14:15:29 [employer]RARY [employer]ERK [employer] by Hina Borges M.D.
[2024-06-06 16:42] LABS: Basophils Absolute Auto 0.1 K/mm3 (0.0-0.1); Basophils Percent Auto 1.3 % (0.2-1.2); Eosinophils Absolute Auto 0.2 K/mm3 (0-0.3); Eosinophils Percent Auto 3.7 % (0-4.4); Hematocrit 32.7 % (42.0-52.0); Immature Granulocyte Absolute 0.02 K/mm3 (0.00-0.031); Immature Granulocyte Percent A 0.4 % (0-0.5); Lymphocytes Absolute Auto 1.48 K/mm3 (0.9-3.2); Lymphocytes Percent Auto 27.6 % (18.3-44.2); Mean Corpuscular HGB Conc 33.6 g/dl (32-36); Mean Corpuscular Hemoglobin 31.7 pg (26-34); Mean Corpuscular Volume 94.2 fl (80-100); Mean Platelet Volume 10.1 fl (7.4-10.4); Monocytes Absolute Auto 0.5 K/mm3 (0.1-0.6); Monocytes Percent Auto 9.5 % (2.6-8.5); Neutrophils Absolute Auto 3.1 K/mm3 (1.3-6.7); Neutrophils Percent Auto 57.5 % (45.5-73.1); Platelet Count Result 201 k/mm3 (150-375); Red Blood Count 3.47 M/mm3 (4.6-6.20); Red Cell Distribution Width 14.2 % (11.5-14.5); White Blood Count 5.4 K/mm3 (4.5-10.0)
[2024-06-06 16:52] LABS: Alanine Aminotransferase 39 U/L (6-50); Albumin Level 4.4 g/dL (3.5-5.1); Alkaline Phosphatase 65 U/L (38-126); Anion Gap 13 mmol/L (4-12); Aspartate Amino Transferase 49 U/L (17-59); Bilirubin,Total 0.6 mg/dL (0.2-1.3); Blood Urea Nitrogen 36 mg/dL (9-20); Calcium 9.9 mg/dL (8.4-10.2); Carbon Dioxide 22 mmol/L (22-30); Chloride 96 mmol/L (98-107); Estimated CRCL calculation 77 ml/min; Estimated Glomerular Filt Rate 48; Glucose 221 mg/dL (65-110); Potassium 5.1 mmol/L (3.4-5.0); Sodium 131 mmol/L (137-145)
[2024-06-06 16:55] LABS: INR 1.4; Prothrombin Time 17.2 Seconds (11.1-14.7)
[2024-06-06 16:56] LABS: Partial Thromboplastin Time 31.8 Seconds (22.3-36.8)
[2024-06-06 17:06] LABS: NT Pro B Type Natriuretic Pept 33 pg/mL (19.9-100); Troponin I 0.014 ng/mL (0.000-0.034)
--- NOTE | 2024-06-06 17:27 | ED_ITS ---
HPI - Extremity Problem General Chief complaint: Extremity Problem,Nontraumatic Stated complaint: bilateral lower leg swelling Time Seen by Provider: 06/06/24 16:58 Source: patient Mode of arrival: ambulatory Limitations: no limitations History of Present Illness HPI Narrative: Patient is a 58 y/o male who presents to the ED with c/o BLE swelling. Patient reports he began noticing swelling in his lower legs and ankles today. He has been wearing compression stockings today. States the swelling is slightly worse in the right leg. He denies significant pain in his lower extremities. Does have history of peripheral neuropathy. He has history of previous blood clots, but is on Xarelto and complaint with this. Denies previous history of CHF. He does report shortness of breath with moderate exertion and with lying flat. Denies any chest pain. Denies cough or cold symptoms. Denies fevers. Related Data Home Medications ?Medication ?Instructions ?Recorded ?Confirmed ?Last Taken ?Type aspirin 81 mg tablet,delayed 81 mg PO DAILY 05/01/19 02/10/24 01/03/24 08:00 History release (Adult Aspirin Regimen) multivitamin,ba-xrdr-yogbnmtz 1 tablet PO DAILY 05/02/19 02/10/24 01/03/24 08:00 History (Complete Multivitamin tablet) lactobacillus combo no.6 4 billion cell PO 01/27/24 02/10/24 Unknown History cell tablet naproxen sodium 220 mg capsule 220 mg PO BID PRN 01/27/24 02/10/24 Unknown History Allergies Allergy/AdvReac Type Severity Reaction Status Date / Time semaglutide (From Ozempic) AdvReac Mild Vomiting Verified 06/06/24 16:02 cephalexin (From Keflex) AdvReac Vomiting Verified 06/06/24 16:02 Review of Systems 2 Review of Systems: All systems reviewed & are unremarkable except as noted in HPI. All systems reviewed & are unremarkable except as noted in HPI and below PMFSH Past Medical History Medical History Portal venous hypertension noted on CT on 01/07/24 Cirrhosis Gastroesophageal reflux disease Chronic anticoagulation Pulmonary emboli Type 2 diabetes mellitus Morbid obesity due to excess calories Factor 5 Leiden mutation, heterozygous Essential (primary) hypertension Surgical History Surgical History History of amputation of great toe Right 2023 History of tonsillectomy Family History Family History Father Pharyngeal malignant neoplasm Mother Hypertension Carcinoma of colon Chronic heart failure not affecting current episode of care Osteoarthritis Social History Social History Social History: Surrogate medical decision maker: Cuate Bolanos, friend. Code status: Full code. Smoking status: Never smoker Alcohol intake: current Drinks per week: 2 Alcohol use details: socially- Mono Substance use: never Substance use type: does not use Do You Feel Safe in your Home?: Yes Lack of Transportation: No Lack of Food: Never True Current Housing: I Have Housing Concerned About Future Housing: No Difficulty Paying Gas/Electric Bills: No Difficulty Paying for Meds: No Currently Unemployed: No Education: Master's Degree or Higher Difficulty w/ Childcare or Family Care: No Additional living arrangements comments: Lives in [place]. 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 Gender identity (if verbalized by the patient): Male Spiritual care concerns: No Exam 2 Narrative: GENERAL: Well appearing, morbidly obese with BMI of 45.0, non-toxic, in no acute distress. HEAD: Normocephalic, atraumatic. RESPIRATORY: Airway patent, respirations nonlabored. Clear to auscultation bilaterally, no rales, rhonchi, wheezing. No significant focal lung sounds or rhonchi. CARDIOVASCULAR: Borderline tachycardic with regular rhythm without murmurs, rubs, or gallops. Pedal pulses are intact and easily palpable. MUSCULOSKELETAL: Moves all extremities. No gross deformities. Diffuse pitting edema throughout bilateral lower extremities, right calf slightly greater than left. No significant tenderness. Sensation is intact. SKIN: Warm, dry, normal color. NEURO: A&O X3. Speech clear. Cranial nerves II-XII grossly intact. Steady gait. No ataxic movements. PSYCHIATRIC: Appropriate mood and affect. Normal interaction. Course Vital Signs Vital signs: Vital Signs Temperature 97.9 F 06/06/24 16:11 Pulse Rate 108 H 06/06/24 16:11 Respiratory Rate 16 06/06/24 16:11 Blood Pressure 164/81 H 06/06/24 16:11 Pulse Oximetry 97 06/06/24 16:11 Oxygen Delivery Room Air 06/06/24 16:11 Temperature 97.9 F 06/06/24 16:11 Pulse Rate 94 06/06/24 19:02 Respiratory Rate 19 06/06/24 19:02 Blood Pressure 148/80 H 06/06/24 19:02 Pulse Oximetry 98 06/06/24 19:02 Oxygen Delivery Room Air 06/06/24 16:11 MDM - Extremity (Nontraumatic) MDM Narrative Medical decision making narrative: Patient presents to the ED with bilateral lower extremity swelling. First noticed today. Patient was initially mildly tachycardic upon arrival. This improved without intervention. Denies hx of CHF. On xarelto. He is neurovascularly intact. Good pedal pulses. ECHO from 03/07/24 showing small LV EF at 60-65%, did show grade 1 diastolic dysfunction. He is on Lisinopril/HCTZ, no other diuretics. BNP is within normal range, only 33. Chest x-ray is clear. No evidence of pulmonary edema or other acute findings. Venous Doppler US is negative for DVT. He is compliant with his Xarelto therapy. Low suspicion for blood clots anyway. Laboratory studies actually look more consistent with mild dehydration. Sodium slightly low, K 5.1, gap 13, minimal NADIR ([employer] 1.5). UA is clear however. No evidence of ketones. Discussed lab and imaging findings with patient at length. Discussed overall reassuring w/u. I have strong suspicion for dependent edema/venous insufficiency vs lymphedema. Patient has been recovering from a back surgery for the past few months and has had limited activity. Discussed management of dependent edema, including gentle but frequent movements/exercise, compression stockings, elevation of legs whenever able. Discussed giving fluids here based on labs, utilized shared decision making with patient. Patient declined IV fluids at this time. States he will continue to drink fluids at home. I otherwise feel patient is safe for discharge home with close outpatient follow-up. He states his PCP is aware he is coming to the ED for this. I have recommended that patient contact PCP again to make follow-up appointment to monitor swelling. Discussed strict return precautions. Patient is in agreement with plan and feels comfortable with discharge home. Discharged in stable condition. VSS at time of d/c. Differential Diagnosis Differential diagnosis: Likely cellulitis, superficial thrombophlebitis, deep vein thrombosis of lower extremity and other (chf, dependent edema, venous insufficiency, arterial occlusion, lymphedema) Medical Records Attestation: I reviewed the patient's medical records. Lab Data Attestation: I reviewed the patient's lab results. 06/06/24 16:30 06/06/24 16:30 Labs: Lab Results 06/06/24 06/06/24 Range/Units 16:30 18:18 WBC 5.4 (4.5-10.0) K/mm3 RBC 3.47 L (4.6-6.20) M/mm3 Hgb 11.0 L (14.0-18.0) g/dL Hct 32.7 L (42.0-52.0) % MCV 94.2 (80-100) fl MCH 31.7 (26-34) pg MCHC 33.6 (32-36) g/dl RDW 14.2 (11.5-14.5) % Plt Count 201 (150-375) k/mm3 MPV 10.1 (7.4-10.4) fl Immature Gran % (Auto) 0.4 (0-0.5) % Neut % (Auto) 57.5 (45.5-73.1) % Lymph % (Auto) 27.6 (18.3-44.2) % [place] % (Auto) 9.5 H (2.6-8.5) % Eos % (Auto) 3.7 (0-4.4) % Baso % (Auto) 1.3 H (0.2-1.2) % Lymph # (Auto) 1.48 (0.9-3.2) K/mm3 [place] # (Auto) 0.5 (0.1-0.6) K/mm3 Eos # (Auto) 0.2 (0-0.3) K/mm3 Baso # (Auto) 0.1 (0.0-0.1) K/mm3 Abs Immat Gran (auto) 0.02 (0.00-0.031) K/mm3 Absolute Neuts (auto) 3.1 (1.3-6.7) K/mm3 Absolute Nucleated RBC 0.000 (0.0-0.012) K/mm3 Nucleated RBC % 0.0 (0.0-0.2) % PT 17.2 H (11.1-14.7) Seconds INR 1.4 APTT 31.8 (22.3-36.8) Seconds Sodium 131 L (137-145) mmol/L Potassium 5.1 H (3.4-5.0) mmol/L Chloride 96 L (98-107) mmol/L Carbon Dioxide 22 (22-30) mmol/L Anion Gap 13 H (4-12) mmol/L BUN 36 H D (9-20) mg/dL Creatinine 1.50 H (0.7-1.3) mg/dL Estim Creat Clear Calc 77 ml/min Estimated GFR 48 L (59 - ) Glucose 221 H (65-110) mg/dL Calcium 9.9 (8.4-10.2) mg/dL Total Bilirubin 0.6 (0.2-1.3) mg/dL AST 49 (17-59) U/L ALT 39 (6-50) U/L Alkaline Phosphatase 65 (38-126) U/L Troponin I 0.014 (0.000-0.034) ng/mL NT-Pro-B Natriuret Pep 33 (19.9-100) pg/mL Total Protein 8.0 (6.3-8.2) g/dL Albumin 4.4 (3.5-5.1) g/dL Urine Color Yellow (Yellow) Urine Appearance Clear (Clear) Urine pH 5.0 (5.0-9.0) Ur Specific [place] 1.012 (1.001-1.035) Urine Protein Negative (Negative) mg/dL Urine Glucose (UA) Negative (Negative) mg/dL Urine Ketones Negative (Negative) mg/dL Ur Blood (Man) Negative (Negative) Urine Nitrate Negative (Negative) Urine Bilirubin Negative (Negative) Urine Urobilinogen 0.2 (<2.0) mg/dL Leukocyte Esterase Rfl Negative (Negative) REGINA/UL Imaging Data Attestation: I personally reviewed and interpreted this imaging study as follows: Radiologist's impression: ITS Impressions Chest X-Ray 06/06/24 17:42 IMPRESSION: No focal infiltrate or effusion. Venous Doppler Study 06/06/24 17:56 IMPRESSION: 1. No deep venous thrombosis within the bilateral lower extremities, as detailed above. ECG Data EKG #1: Attestation EKG: I personally reviewed and interpreted this ECG as follows: ECG completion date: 06/06/24 ECG completion time: 16:23 EKG Interpretation: tachycardia (102), sinus rhythm and non-specific ST changes Discharge Plan Discharge Clinical Impression: Bilateral lower extremity edema Patient Disposition: Home, Self-Care Condition: Stable Instructions: Antibiotic Form, Leg Edema (ED), Lymphedema (ED), Venous Insufficiency (DC) Additional Instructions: Recommend continuing compression stockings, elevation of legs whenever able. Recommend gentle movement throughout the day to encourage better blood flow. Follow-up closely with your primary care doctor for further evaluation and repeat laboratory testing. Return to the ED if you experience worsening or severe symptoms, severe pain, difficulty breathing, chest pain, fevers, or any other symptoms of concern. Patient Language: Omani Prescriptions: No Action naproxen sodium 220 mg capsule 220 mg PO BID PRN lactobacillus combo no.6 4 billion cell tablet PO aspirin [Adult Aspirin Regimen] 81 mg tablet,delayed release (DR/EC) 81 mg PO DAILY Complete Multivitamin Tablet 1 tablet PO DAILY lisinopril-hydrochlorothiazide 20-12.5 mg tablet 1 tablet PO DAILY Qty: 90 3RF cyanocobalamin (vitamin B-12) [Vitamin B-12] 1,000 mcg Tablet 1,000 mcg PO QAM Qty: 30 1RF Xarelto 20 mg tablet See Rx Instructions .ROUTE .COMPLEX Qty: 90 3RF Dose Instruction: TAKE 1 TABLET BY MOUTH EVERY DAY WITH EVENING MEAL Rx Instructions: TAKE 1 TABLET BY MOUTH EVERY DAY WITH EVENING MEAL prochlorperazine maleate [Compazine] 5 mg tablet 5 mg PO Q8H PRN (Reason: nausea and vomiting) Qty: 20 0RF (DME) lancets [Accu-Chek Softclix Lancets] Misc See Rx Instructions .Route Qty: 100 2RF Rx Instructions: Use to check BS once daily metformin 1,000 mg tablet 1,000 mg PO DAILY Qty: 90 1RF simvastatin 20 mg tablet 20 mg PO DAILY Qty: 90 1RF Rx Instructions: takes HS bupropion HCl 150 mg tablet sustained-release 12 hr 150 mg PO BID Qty: 180 1RF hydroxyzine HCl 25 mg tablet See Rx Instructions .ROUTE .COMPLEX Qty: 180 0RF Dose Instruction: TAKE 1 TABLET BY MOUTH TWICE DAILY NEEDED FOR ITCHING Rx Instructions: TAKE 1 TABLET BY MOUTH TWICE DAILY NEEDED FOR ITCHING Follow-up/Referrals: Daniel Bradley DO [Primary Care Provider] - Time of Disposition: 18:58
[2024-06-06 18:31] LABS: Add Urine Microscopic? NO; Appearance Urine Clear (Clear); Bilirubin Urine Negative (Negative); Blood Urine Negative (Negative); Color Urine Yellow (Yellow); Glucose Urine UA Negative (Negative); Ketones Urine Negative (Negative); Leukocyte Esterase Ur Negative LEU/UL (Negative); Nitrate Urine Negative (Negative); Protein Urine Negative (Negative); Specific Grav Ur 1.012 (1.001-1.035); Urobilinogen Urine 0.2 mg/dL (<2.0)
== END 2024-06-06 19:37 | disposition home or self-care (01) ==
PROVIDERS: Student in an Organized Health Care Education/Training Program; Emergency Provider Physician Assistant; PCP Internal Medicine
DX: R60.0 Localized edema (principal); R00.0 Tachycardia, unspecified; K21.9 Gastro-esophageal reflux disease without esophagitis; K74.60 Unspecified cirrhosis of liver; Z79.01 Long term (current) use of anticoagulants; Z86.711 Personal history of pulmonary embolism; E11.9 Type 2 diabetes mellitus without complications; I10 Essential (primary) hypertension; E66.01 Morbid (severe) obesity due to excess calories; Z68.42 Body mass index [BMI] 45.0-49.9, adult
CPT/HCPCS: 36415; 71045; 80053; 81003; 83880; 84484; 85025; 85610; 85730; 93005; 93970; 99284

== ENCOUNTER 2024-08-07 09:08 | Outpatient (CLI) | payer OTHER, SELFPAY ==
--- NOTE | ~2024-08-07 | US_ITS ---
Limited Abdominal Sonogram: Real-time sonographic imaging of the right upper quadrant was performed. Clinical History: Cirrhosis Findings: The liver appears echogenic, with no evidence of mass lesion or bile duct dilatation. It m easures 20.4 cm in length. Main portal vein demonstrates normal direction of flow. The gallbladder is well distended, and appears normal with no evidence of gallstone or wall thickening. The common bile duct measures 4 mm. The visualized pancreas, aorta, and IVC are unremarkable. Impression: Diffuse fatty infiltration of liver, with associated hepatomegaly. Reviewed, dictated and finalized at location . Impression: Diffuse fatty infiltration of liver, with associated hepatomegaly.
--- OUTSIDE RECORDS SUMMARY | 2024-08-07 09:53 | XMS_ITS | Encounter Summary ---
Author Organization [facility] Healthcare Address [address] [place] [address] Care Team Providers Care Commercial Subcontractor Name Role Phone Daniel Bradley DO Primary Care Provider + [phone] Ashley Gonsales MD Unavailable [phone] Encounter Details Date Type Department Care Team (Late st Contact Info) Description 11/04/2020 Telephone [facility] [address] [place] [id number] [address] Culver, CHARLY Social History Tobacco Use Types Packs/Day Years Used Date Smoking Tobacco: Never Sex and Gender Information Value Date Recorded Sex Assigned at Not on file Legal Sex Male 3:20 AM [employer]ICE [employer] Gender Identity Not on file Sexual Orientation Not on file documented as of this encounter Plan of Treatment Not on file documented as of this encounter Visit Diagnoses Not on filedocumented in this encounter Care Teams Commercial Subcontractor Relationship Specialty Start Date End Date Daniel Bradley DO PCP - General Internal Medicine 10/16/20 Ashley Gonsales MD Consulting Physician Family Medicine 02/02/24 documented as of this encounter
--- OUTSIDE RECORDS SUMMARY | 2024-08-07 09:53 | XMS_ITS | Patient Health Record ---
Author Organization [facility] Address [address] [place] [address] Care Team Providers Care Church Secretary Name Role Phone Mirna STALEY Daniel Primary Care Provider Kenzie Lundberg Unavailable [phone] Destiney Almazan APN Unavailable Unavailable Allergies Allergen (clinical drug ingredient) Drug/Non Drug Allergy documented on EMR Reaction Allergy Type Onset Date Status cephalexin Cephalexin Unknown Drug Allergy Activ e semaglutide Semaglutide Unknown Drug Allergy Act aung Results Component Value Reference Range Notes UDT Reviewed date:02/22/2024 10:51:17 AM Interpretation: Performing Lab: Notes/Report: THC n 0 - 50 ng/ml Cocaine n 0 - 300 ng/ml Amphetamine n 0 - 1000 ng/ml Buprenorphine (BUP) n 0 - 10 ng/ml Secobarbital (Bar) n 0 - 300 ng/ml Oxazepam (BZO) n 0 - 300 ng/ml 6-xklbpukoqi-0,0-nozmnrvn-6,3-diphenylpyrrolidine (RAMA P) n 0 - 300 ng/ml Methamphetamine (MET) n 0 - 1000 ng/ml Methylenedioxymethamphetamine (MDMA) n 0 - 500 ng/ml Morphine (MOP 300/LDV2582) n 0 - 300 ng/ml Methadone (MTD) n 0 - 300 ng/ml Phencyclidine (PCP) n 0 - 25 ng/ml Nortriptyline (TCA) n 0 - 1000 ng/ml Oxycodone n 0 - 300 ng/ml x n 0 - 300 ng/ml Reason For Referral No Information Medications Medication SIG (Take, Route, Frequency, Duration) Notes Start Date End Date Status Cyclobenzaprine HCl 10 MG TAKE 1 TABLET BY MOUTH EVERY DAY AT NIGHT NEEDED FOR MUSCLE SPASM Oral for 30 Days Active Simvastatin 20 MG TAKE 1 TABLET BY AFSHAN TH EVERYDAY AT BEDTIME Oral for 90 Days Active Prochlorperazine Maleate 5 MG TAKE 1 TAB LET BY MOUTH EVERY 8 HOURS NEEDED FOR NAUSEA AND VOMITING Oral for 7 Days Active hydrOXYzine HCl 25 MG Oral for 90 Days Active Lisinopril-hydroCHLOROthiazi d e 20-12.5 MG Oral for 90 Days Active Pantoprazole Sodium 40 MG TAKE 1 TABLET BY MOUTH EVERY 12 HOURS Oral for 30 Days Active Ondansetron 4 MG Oral for 6 Days Active Xarelto 20 MG TAKE 1 TABLET BY AFSHAN TH EVERY DAY WITH EVENING MEAL Oral for 90 Days Active tiZANidine HCl 2 MG Oral for 20 Days Active buPROPion HCl ER (SR) 150 MG Oral for 68 Days Active traZODone HCl 50 MG 1 tablet at bedtime Orally Once a day for 90 days 07/28/2024 Active Vitamin B-12 1000 MCG TAKE 1 TABLET BY M OUTH EVERY MORNING Oral for 30 Days Active metFORMIN HCl 1000 MG Oral for 90 Days Active Social History Tobacco Use: Social History Observation Description Date Details (start date - stop date) Never Smoker NA - NA Sex Assigned At : Social History Observation Description Sex Assigned At Male Household Question Answer Notes Marital status: single Number of adults in household: 1 Number of children in household: 0 Level of education: professional schools/Masters/PhD 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 [employer] Tobacco Control (Standard) Question Answer Notes Tobacco use: Nonsmoker Additional Findings: Tobacco non-user Current no nsmoker AUDIT-C (Standard) Question Answer Notes Did you have a drink contain ing alcohol in the past year? Yes How often did you have six o r more drinks on one occasion in the past year? Less than monthly (1 point) How many drinks did you have on a typical day when you were drinking in the past year? 1 or 2 drinks (0 point) How often did you have a dri nk containing alcohol in the past year? Monthly or less (1 point) Points 2 Interpretation Negative Problems Problem Type SNOMED Code ICD Code Onset Dates Problem Status W/U Status Risk Notes Problem 53178737 ADRIAN (generalized anxiety disorder) (F41.1) Active confirmed Problem 292364068 MDD (major depressive disorder), recurrent episode, mild (F33.0) Active confirmed Problem 50741520 Insomnia related to another mental disorder (F51.05) Active confirmed Problem 137101182 History of recent change in lifestyle (Z78.9) Active confirmed Vital Signs Heart Rate 118 /min 02/22/2024 Height-cm 190.5 cm 02/22/2024 Blood pressure diastolic 100 mm Hg 02/22/2024 Weight-kg 131.54 kg 02/22/2024 Height 75 in 02/22/2024 Blood pressure systolic 149 mm Hg 02/22/2024 Weight 290 lbs 02/22/2024 BMI 36.24 kg/m2 02/22/2024 Encounters Encounter Location Date Provider Diagnosis [facility] [address] [address] 02/22/2024 Kenzie Tamir MDD (major depressive disorder), recurrent episode, mild F33.0 ; ADRIAN (generalized anxiety disorder) F41.1 and History of recent change in lifestyle Z78.9 [facility] [address] [address] 05/01/2024 Kenzie Tamir MDD (major depressive disorder), recurrent episode, mild F33.0 ; ADRIAN (generalized anxiety disorder) F41.1 and History of recent change in lifestyle Z78.9 [facility] [address] [address] 07/28/2024 Kenzie Therpetros MDD (major depressive disorder), recurrent episode, mild F33.0 ; ADRIAN (generalized anxiety disorder) F41.1 ; History of recent change in lifestyle Z78.9 and Insomnia related to another mental disorder F51.05 Assessments Encounter Date Diagnosis (ICD Code) Assessment Notes Treatment Notes Treatment Clinical Notes Section Notes 02/22/2024 ADRIAN (generalized anxiety disorder) (ICD-10 - F41.1) Generalized Anxiety Disorder: Care Instructions material was published, Learning About Generalized Anxiety Disorder material was published, Learning About Anxiety Disorders material was published no refill needed today mcfp today- adjustment surgery planned 03/16 discuss therapy HAMILTON - will consider if need in near future major depression- Wellbutrin SR 150 mg twice a day- patient reported been helping Anxiety- Vistaril 25 mg twice a day- patient reported been helping http_s://www.addit udemag.com/cannabi u-amz-lqhymgkv-mar ijuana-adhd/ http_s://www.nava. org/Gydzn-Qthdfx-N llness/Mental-Heal th-Conditions http_s://psychcent [employer].com/depression /zoa-agoqkiqzm-ynw femor-yw-sicbkdipo n#treatments http__s://www.nim .nih.gov/health/to pics/mental-health -medications http__s://www.nava .org/About-Mental- Illness/Treatments /Czhrwc-Vqrwjp-Pvn ications educated on all medications, benefits, side effects and risk, and educated on depression, anxiety, and ADHD, mood d/o and educated on compliance of medications, metabolic and movement d/o education appointment's, continue therapy discussion with patient about course of treatment and patient instructions. education on serotonin syndrome Discussed and educated pt regarding benzodiazepines are generally not intended for prolonged use and that use can cause tolerance, dependence, depression, and associated memory issues including dementias (this list is not exhaustive). Benzodiazepine use is generally not recommended concurrently with pain medications and/or other controlled substances educated on all medications, benefits, side effects and risk, and educated on depression, anxiety, and ADHD, mood d/o and educated on compliance of medications, metabolic and movement d/o education appointment is, continue therapy discussion with patient about course of treatment and patient instructions. education on serotonin syndrome SSRI/SNRI side effects discussed including but not limited to, gastric upset, nausea, vomiting, diarrhea and/or constipation, weight changes, sexual side effects including loss of libido, increased suicidal thoughts/behaviors in children and young adults, and serotonin syndrome. Medication Management and Follow-Up - Plan: - Schedule follow-up appointments every 1-3 months to monitor the patient's response to the medication regimen. - Reinforce the importance of avoiding recreational drug use due to potential neurotoxicity and interactions with prescribed medications. 02/22/2024 MDD (major depressive disorder), recurrent episode, mild (ICD-10 - F33.0) Preventing Depression From Coming Back: Care Instructions material was published, Learning About Depression material was published, Learning About Depression Screening material was published, Learning About How to Get Help During a Mental Health Crisis material was published, Seasonal Affective Disorder: Care Instructions material was published no refill needed today mcfp today- adjustment surgery planned 03/16 discuss therapy HAMILTON - will consider if need in near future major depression- Wellbutrin SR 150 mg twice a day- patient reported been helping Anxiety- Vistaril 25 mg twice a day- patient reported been helping http_s://www.[employer]/cannabi n-sds-wckxtsgc-mar ijuana-adhd/ http_s://www.nava. org/Uzyqv-Mbdxvm-Z llness/Mental-Heal th-Conditions http_s://psychcent [employer].com/depression /wwq-mrcqseloh-sbi uwxjh-zh-dtgkhdugr n#treatments http__s://www.nimh .nih.gov/health/to pics/mental-health -medications http__s://www.nava .org/About-Mental- Illness/Treatments /Zuxsug-Iwwrwu-Yid ications educated on all medications, benefits, side effects and risk, and educated on depression, anxiety, and ADHD, mood d/o and educated on compliance of medications, metabolic and movement d/o education appointment's, continue therapy discussion with patient about course of treatment and patient instructions. education on serotonin syndrome Discussed and educated pt regarding benzodiazepines are generally not intended for prolonged use and that use can cause tolerance, dependence, depression, and associated memory issues including dementias (this list is not exhaustive). Benzodiazepine use is generally not recommended concurrently with pain medications and/or other controlled substances educated on all medications, benefits, side effects and risk, and educated on depression, anxiety, and ADHD, mood d/o and educated on compliance of medications, metabolic and movement d/o education appointment is, continue therapy discussion with patient about course of treatment and patient instructions. education on serotonin syndrome SSRI/SNRI side effects discussed including but not limited to, gastric upset, nausea, vomiting, diarrhea and/or constipation, weight changes, sexual side effects including loss of libido, increased suicidal thoughts/behaviors in children and young adults, and serotonin syndrome. Medication Management and Follow-Up - Plan: - Schedule follow-up appointments every 1-3 months to monitor the patient's response to the medication regimen. - Reinforce the importance of avoiding recreational drug use due to potential neurotoxicity and interactions with prescribed medications. 05/01/2024 MDD (major depressive disorder), recurrent episode, mild (ICD-10 - F33.0) Preventing Depression From Coming Back: Care Instructions material was published, Learning About Depression material was published, Learning About Depression Screening material was published, Learning About How to Get Help During a Mental Health Crisis material was published, Seasonal Affective Disorder: Care Instructions material was published no refill needed today has 90 day Welbutrin and 2 refills of 90 Vistaril left reported mcfp today- adjustment surgery planned 03/16 discuss therapy HAMILTON - will consider if need in near future major depression- Wellbutrin SR 150 mg twice a day- patient reported been helping Anxiety- Vistaril 25 mg twice a day- patient reported been helping http_s://www.[employer]/cannabi e-shp-jzyhercg-mar ijuana-adhd/ http_s://www.nava. org/Ztuik-Zsjqar-L llness/Mental-Heal th-Conditions http_s://[employer].Say-Hey/depression /kpb-ttsykfsgt-uye zcqqd-vk-aprjujtoy n#treatments http__s://www.nimh .nih.gov/health/to pics/mental-health -medications http__s://www.nava .org/About-Mental- Illness/Treatments /Cqjusl-Qhjehi-Ycz ications educated on all medications, benefits, side effects and risk, and educated on depression, anxiety, and ADHD, mood d/o and educated on compliance of medications, metabolic and movement d/o education appointment's, continue therapy discussion with patient about course of treatment and patient instructions. education on serotonin syndrome Discussed and educated pt regarding benzodiazepines are generally not intended for prolonged use and that use can cause tolerance, dependence, depression, and associated memory issues including dementias (this list is not exhaustive). Benzodiazepine use is generally not recommended concurrently with pain medications and/or other controlled substances educated on all medications, benefits, side effects and risk, and educated on depression, anxiety, and ADHD, mood d/o and educated on compliance of medications, metabolic and movement d/o education appointment is, continue therapy discussion with patient about course of treatment and patient instructions. education on serotonin syndrome SSRI/SNRI side effects discussed including but not limited to, gastric upset, nausea, vomiting, diarrhea and/or constipation, weight changes, sexual side effects including loss of libido, increased suicidal thoughts/behaviors in children and young adults, and serotonin syndrome. Medication Management and Follow-Up - Plan: - Schedule follow-up appointments every 1-3 months to monitor the patient's response to the medication regimen. - Reinforce the importance of avoiding recreational drug use due to potential neurotoxicity and interactions with prescribed medications. 07/28/2024 ADRIAN (generalized anxiety disorder) (ICD-10 - F41.1) Generalized Anxiety Disorder: Care Instructions material was published, Learning About Generalized Anxiety Disorder material was published, Learning About Anxiety Disorders material was published no refill needed today has 90 day Welbutrin and 2 refills of 90 Vistaril left reported 1. mcfp - adjustment surgery 04/16 pain management discuss therapy HAMILTON - will consider if need in near future 2. major depression- Wellbutrin SR 150 mg twice a day- patient reported been helping 3. Anxiety- Vistaril 25 mg twice a day- no refil needed today has 90 days patient reported having anxiety mainly at night 4. Insomnia related to anxiety Add Trazodone 50 mg at bedtime educated on rx http_s://www.[employer]/cannabi a-vgz-ccnnyikp-mar ijuana-adhd/ http_s://www.nava. org/Isepm-Viouha-K llness/Mental-Heal th-Conditions http_s://[employer].com/depression /ozj-sfqzmxote-ugp fztdu-sq-olxycnjne n#treatments http__s://www.nimh .nih.gov/health/to pics/mental-health -medications http__s://www.nava .org/About-Mental- Illness/Treatments /Tirsau-Jzipsd-Yuo ications educated on all medications, benefits, side effects and risk, and educated on depression, anxiety, and ADHD, mood d/o and educated on compliance of medications, metabolic and movement d/o education appointment's, continue therapy discussion with patient about course of treatment and patient instructions. education on serotonin syndrome Discussed and educated pt regarding benzodiazepines are generally not intended for prolonged use and that use can cause tolerance, dependence, depression, and associated memory issues including dementias (this list is not exhaustive). Benzodiazepine use is generally not recommended concurrently with pain medications and/or other controlled substances educated on all medications, benefits, side effects and risk, and educated on depression, anxiety, and ADHD, mood d/o and educated on compliance of medications, metabolic and movement d/o education appointment is, continue therapy discussion with patient about course of treatment and patient instructions. education on serotonin syndrome SSRI/SNRI side effects discussed including but not limited to, gastric upset, nausea, vomiting, diarrhea and/or constipation, weight changes, sexual side effects including loss of libido, increased suicidal thoughts/behaviors in children and young adults, and serotonin syndrome. Medication Management and Follow-Up - Plan: - Schedule follow-up appointments every 1-3 months to monitor the patient's response to the medication regimen. - Reinforce the importance of avoiding recreational drug use due to potential neurotoxicity and interactions with prescribed medications. 07/28/2024 MDD (major depressive disorder), recurrent episode, mild (ICD-10 - F33.0) Preventing Depression From Coming Back: Care Instructions material was published, Learning About Depression material was published, Learning About Depression Screening material was published, Learning About How to Get Help During a Mental Health Crisis material was published, Seasonal Affective Disorder: Care Instructions material was published no refill needed today has 90 day Welbutrin and 2 refills of 90 Vistaril left reported 1. mcfp - adjustment surgery 04/16 pain management discuss therapy HAMILTON - will consider if need in near future 2. major depression- Wellbutrin SR 150 mg twice a day- patient reported been helping 3. Anxiety- Vistaril 25 mg twice a day- no refil needed today has 90 days patient reported having anxiety mainly at night 4. Insomnia related to anxiety Add Trazodone 50 mg at bedtime educated on rx http_s://www.[employer].Say-Hey/cannabi k-kbf-gcyclcsg-mar ijuana-adhd/ http_s://www.nvaa. org/Aqqsm-Hdjcxs-Y llness/Mental-Heal th-Conditions http_s://psychcent [employer].com/depression /wnj-pobrmrqsd-wxh vtjya-yc-ggmnyhmad n#treatments http__s://www.nimh .nih.gov/health/to pics/mental-health -medications http__s://www.nava .org/About-Mental- Illness/Treatments /Ckivrb-Hrmlee-Ntz ications educated on all medications, benefits, side effects and risk, and educated on depression, anxiety, and ADHD, mood d/o and educated on compliance of medications, metabolic and movement d/o education appointment's, continue therapy discussion with patient about course of treatment and patient instructions. education on serotonin syndrome Discussed and educated pt regarding benzodiazepines are generally not intended for prolonged use and that use can cause tolerance, dependence, depression, and associated memory issues including dementias (this list is not exhaustive). Benzodiazepine use is generally not recommended concurrently with pain medications and/or other controlled substances educated on all medications, benefits, side effects and risk, and educated on depression, anxiety, and ADHD, mood d/o and educated on compliance of medications, metabolic and movement d/o education appointment is, continue therapy discussion with patient about course of treatment and patient instructions. education on serotonin syndrome SSRI/SNRI side effects discussed including but not limited to, gastric upset, nausea, vomiting, diarrhea and/or constipation, weight changes, sexual side effects including loss of libido, increased suicidal thoughts/behaviors in children and young adults, and serotonin syndrome. Medication Management and Follow-Up - Plan: - Schedule follow-up appointments every 1-3 months to monitor the patient's response to the medication regimen. - Reinforce the importance of avoiding recreational drug use due to potential neurotoxicity and interactions with prescribed medications. 02/22/2024 History of recent change in lifestyle (ICD-10 - Z78.9) no refill needed today mcfp today- adjustment surgery planned 03/16 discuss therapy HAMILTON - will consider if need in near future major depression- Wellbutrin SR 150 mg twice a day- patient reported been helping Anxiety- Vistaril 25 mg twice a day- patient reported been helping http_s://www.[employer]/cannabi h-qok-mntzrgdd-mar ijuana-adhd/ http_s://www.nava. org/Vevsy-Qrnidl-M llness/Mental-Heal th-Conditions http_s://psychcent [employer].com/depression /ugy-fyyuslrfa-goh pijtu-jk-bkkgokhjs n#treatments http__s://www.nimh .nih.gov/health/to pics/mental-health -medications http__s://www.nava .org/About-Mental- Illness/Treatments /Mzhyvj-Fttpkz-Lza ications educated on all medications, benefits, side effects and risk, and educated on depression, anxiety, and ADHD, mood d/o and educated on compliance of medications, metabolic and movement d/o education appointment's, continue therapy discussion with patient about course of treatment and patient instructions. education on serotonin syndrome Discussed and educated pt regarding benzodiazepines are generally not intended for prolonged use and that use can cause tolerance, dependence, depression, and associated memory issues including dementias (this list is not exhaustive). Benzodiazepine use is generally not recommended concurrently with pain medications and/or other controlled substances educated on all medications, benefits, side effects and risk, and educated on depression, anxiety, and ADHD, mood d/o and educated on compliance of medications, metabolic and movement d/o education appointment is, continue therapy discussion with patient about course of treatment and patient instructions. education on serotonin syndrome SSRI/SNRI side effects discussed including but not limited to, gastric upset, nausea, vomiting, diarrhea and/or constipation, weight changes, sexual side effects including loss of libido, increased suicidal thoughts/behaviors in children and young adults, and serotonin syndrome. Medication Management and Follow-Up - Plan: - Schedule follow-up appointments every 1-3 months to monitor the patient's response to the medication regimen. - Reinforce the importance of avoiding recreational drug use due to potential neurotoxicity and interactions with prescribed medications. 05/01/2024 ADRIAN (generalized anxiety disorder) (ICD-10 - F41.1) Generalized Anxiety Disorder: Care Instructions material was published, Learning About Generalized Anxiety Disorder material was published, Learning About Anxiety Disorders material was published no refill needed today has 90 day Welbutrin and 2 refills of 90 Vistaril left reported mcfp today- adjustment surgery planned 03/16 discuss therapy HAMILTON - will consider if need in near future major depression- Wellbutrin SR 150 mg twice a day- patient reported been helping Anxiety- Vistaril 25 mg twice a day- patient reported been helping http_s://www.[employer].Say-Hey/cannabi h-juy-qmqhxyfw-mar ijuana-adhd/ http_s://www.nava. org/Sjomi-Vlhhsi-N llness/Mental-Heal th-Conditions http_s://psychcent [employer].com/depression /kjy-niheaqaos-bjz novgo-bu-kwhqrgnyn n#treatments http__s://www.nimh .nih.gov/health/to pics/mental-health -medications http__s://www.nava .org/About-Mental- Illness/Treatments /Dwmogx-Tfpqcj-Bma ications educated on all medications, benefits, side effects and risk, and educated on depression, anxiety, and ADHD, mood d/o and educated on compliance of medications, metabolic and movement d/o education appointment's, continue therapy discussion with patient about course of treatment and patient instructions. education on serotonin syndrome Discussed and educated pt regarding benzodiazepines are generally not intended for prolonged use and that use can cause tolerance, dependence, depression, and associated memory issues including dementias (this list is not exhaustive). Benzodiazepine use is generally not recommended concurrently with pain medications and/or other controlled substances educated on all medications, benefits, side effects and risk, and educated on depression, anxiety, and ADHD, mood d/o and educated on compliance of medications, metabolic and movement d/o education appointment is, continue therapy discussion with patient about course of treatment and patient instructions. education on serotonin syndrome SSRI/SNRI side effects discussed including but not limited to, gastric upset, nausea, vomiting, diarrhea and/or constipation, weight changes, sexual side effects including loss of libido, increased suicidal thoughts/behaviors in children and young adults, and serotonin syndrome. Medication Management and Follow-Up - Plan: - Schedule follow-up appointments every 1-3 months to monitor the patient's response to the medication regimen. - Reinforce the importance of avoiding recreational drug use due to potential neurotoxicity and interactions with prescribed medications. 07/28/2024 History of recent change in lifestyle (ICD-10 - Z78.9) no refill needed today has 90 day Welbutrin and 2 refills of 90 Vistaril left reported 1. [facility] - adjustment surgery 04/16 pain management discuss therapy [facility] - will consider if need in near future 2. major depression- Wellbutrin SR 150 mg twice a day- patient reported been helping 3. Anxiety- Vistaril 25 mg twice a day- no refil needed today has 90 days patient reported having anxiety mainly at night 4. Insomnia related to anxiety Add Trazodone 50 mg at bedtime educated on rx http_s://www.[employer].Say-Hey/cannabi o-ark-hccufiwx-mar ijuana-adhd/ http_s://www.nava. org/Zkphh-Mbgzgh-S llness/Mental-Heal th-Conditions http_s://psychcent [employer].com/depression /tqm-laabcuzsb-bjw hcjut-or-royhuzegn n#treatments http__s://www.nimh .nih.gov/health/to pics/mental-health -medications http__s://www.nava .org/About-Mental- Illness/Treatments /Bvriqs-Wwlngb-Zuo ications educated on all medications, benefits, side effects and risk, and educated on depression, anxiety, and ADHD, mood d/o and educated on compliance of medications, metabolic and movement d/o education appointment's, continue therapy discussion with patient about course of treatment and patient instructions. education on serotonin syndrome Discussed and educated pt regarding benzodiazepines are generally not intended for prolonged use and that use can cause tolerance, dependence, depression, and associated memory issues including dementias (this list is not exhaustive). Benzodiazepine use is generally not recommended concurrently with pain medications and/or other controlled substances educated on all medications, benefits, side effects and risk, and educated on depression, anxiety, and ADHD, mood d/o and educated on compliance of medications, metabolic and movement d/o education appointment is, continue therapy discussion with patient about course of treatment and patient instructions. education on serotonin syndrome SSRI/SNRI side effects discussed including but not limited to, gastric upset, nausea, vomiting, diarrhea and/or constipation, weight changes, sexual side effects including loss of libido, increased suicidal thoughts/behaviors in children and young adults, and serotonin syndrome. Medication Management and Follow-Up - Plan: - Schedule follow-up appointments every 1-3 months to monitor the patient's response to the medication regimen. - Reinforce the importance of avoiding recreational drug use due to potential neurotoxicity and interactions with prescribed medications. 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 [facility] - adjustment surgery 04/16 pain management discuss therapy [facility] - will consider if need in near future 2. major depression- Wellbutrin SR 150 mg twice a day- patient reported been helping 3. Anxiety- Vistaril 25 mg twice a day- no refil needed today has 90 days patient reported having anxiety mainly at night 4. Insomnia related to anxiety Add Trazodone 50 mg at bedtime educated on rx http_s://www.[employer].Say-Hey/cannabi f-axy-nlpgywhj-mar ijuana-adhd/ http_s://www.nava. org/Isasl-Cnqdcz-O llness/Mental-Heal th-Conditions http_s://psychcent [employer].com/depression /vhg-wmmergygz-yvv dyedx-by-yzjkclzkg n#treatments http__s://www.nim .nih.gov/health/to pics/mental-health -medications http__s://www.nava .org/About-Mental- Illness/Treatments /Hrsgta-Zaywpu-Qoh ications educated on all medications, benefits, side effects and risk, and educated on depression, anxiety, and ADHD, mood d/o and educated on compliance of medications, metabolic and movement d/o education appointment's, continue therapy discussion with patient about course of treatment and patient instructions. education on serotonin syndrome Discussed and educated pt regarding benzodiazepines are generally not intended for prolonged use and that use can cause tolerance, dependence, depression, and associated memory issues including dementias (this list is not exhaustive). Benzodiazepine use is generally not recommended concurrently with pain medications and/or other controlled substances educated on all medications, benefits, side effects and risk, and educated on depression, anxiety, and ADHD, mood d/o and educated on compliance of medications, metabolic and movement d/o education appointment is, continue therapy discussion with patient about course of treatment and patient instructions. education on serotonin syndrome SSRI/SNRI side effects discussed including but not limited to, gastric upset, nausea, vomiting, diarrhea and/or constipation, weight changes, sexual side effects including loss of libido, increased suicidal thoughts/behaviors in children and young adults, and serotonin syndrome. Medication Management and Follow-Up - Plan: - Schedule follow-up appointments every 1-3 months to monitor the patient's response to the medication regimen. - Reinforce the importance of avoiding recreational drug use due to potential neurotoxicity and interactions with prescribed medications. 05/01/2024 History of recent change in lifestyle (ICD-10 - Z78.9) no refill needed today has 90 day Welbutrin and 2 refills of 90 Vistaril left reported [facility] today- adjustment surgery planned 03/16 discuss therapy [facility] - will consider if need in near future major depression- Wellbutrin SR 150 mg twice a day- patient reported been helping Anxiety- Vistaril 25 mg twice a day- patient reported been helping http_s://www.[employer]/cannabi l-ekn-mphsuyjk-mar ijuana-adhd/ http_s://www.nava. org/Ggbsg-Ytthhh-G llness/Mental-Heal th-Conditions http_s://psychcent [employer].com/depression /sks-pyxftqzqr-odk alrsx-rb-fpbedzzkj n#treatments http__s://www.nimh .nih.gov/health/to pics/mental-health -medications http__s://www.nava .org/About-Mental- Illness/Treatments /Ubdkyx-Qpdwkh-Kep ications educated on all medications, benefits, side effects and risk, and educated on depression, anxiety, and ADHD, mood d/o and educated on compliance of medications, metabolic and movement d/o education appointment's, continue therapy discussion with patient about course of treatment and patient instructions. education on serotonin syndrome Discussed and educated pt regarding benzodiazepines are generally not intended for prolonged use and that use can cause tolerance, dependence, depression, and associated memory issues including dementias (this list is not exhaustive). Benzodiazepine use is generally not recommended concurrently with pain medications and/or other controlled substances educated on all medications, benefits, side effects and risk, and educated on depression, anxiety, and ADHD, mood d/o and educated on compliance of medications, metabolic and movement d/o education appointment is, continue therapy discussion with patient about course of treatment and patient instructions. education on serotonin syndrome SSRI/SNRI side effects discussed including but not limited to, gastric upset, nausea, vomiting, diarrhea and/or constipation, weight changes, sexual side effects including loss of libido, increased suicidal thoughts/behaviors in children and young adults, and serotonin syndrome. Medication Management and Follow-Up - Plan: - Schedule follow-up appointments every 1-3 months to monitor the patient's response to the medication regimen. - Reinforce the importance of avoiding recreational drug use due to potential neurotoxicity and interactions with prescribed medications. Plan Of Treatment Next Appt Details Provider Name:Kenzie Tamir , 10/20/2024 08:45:00 AM, [address], [address], [place], [address], Insurance Providers Payer Name Payer Address Payer Phone Subscriber Number Group Number Insured Name Patient Relationship to Insured Coverage Start Date Coverage End Date [employer] [address] [place] [phone] [id number] Marc Haddad Self - patient is the insured Medical (General) History Medical History History ICD Code Essential HTN Cirrhosis GERD Morbid Obesity Past Psychiatric History: Major Depressi ve Episode undefined abdominal aortic aneurysm: No atrial fibrillation: No chronic fatigue syndrome: No essential tremor: No hyperlipidemia: No hypertension: Yes Parkinson's disease: No restless leg syndrome: No stroke: No subdural hematoma: No type 1 diabetes mellitus: No type 2 diabetes mellitus: Yes vitamin B12 deficiency: Yes vitamin D deficiency: No Surgical History Surgery Date(Month/Year) rt toe amp 06/2023 gi issues back surgery pending 02/29/2024 Hospitalization History Reason Date(Month/Year) toe amputation 06/2023
--- OUTSIDE RECORDS SUMMARY | 2024-08-07 09:53 | XMS_ITS ---
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 Name Role Phone Karthikmichi Daniel Primary Care Provider Kenzie Lundberg Unavailable [phone] Destiney Almazan APN Unavailable Unavailable Allergies Allergen [...] Oxazepam (BZO) n 0 - 300 ng/ml 0-qxibbyurev-9,8-eaofmjyt-0,3-diphenylpyrrolidine (RAMA P) n 0 - 300 ng/ml Methamphetamine (MET) n 0 - 1000 ng/ml Methylenedioxymethamphetamine (MDMA) n 0 - 500 ng/ml Morphine (MOP 300/DKQ6160) n 0 - 300 ng/ml Methadone (MTD) n 0 - 300 ng/ml Phencyclidine (PCP) n 0 - 25 ng/ml Nortriptyline (TCA) n 0 - 1000 ng/ml Oxycodone n 0 - 300 ng/ml x n 0 - 300 ng/ml REASON FOR VISIT new patient rx Medications Medication SIG (Take, Route, Frequency, Duration) Notes Start Date End Date Status hydrOXYzine HCl 25 MG Oral for 90 Days Active Prochlorperazine Maleate 5 MG TAKE 1 TAB LET BY MOUTH EVERY 8 HOURS NEEDED FOR NAUSEA AND VOMITING Oral for 7 Days Active Ondansetron 4 MG Oral for 6 Days Active Simvastatin 20 MG TAKE 1 TABLET BY AFSHAN TH EVERYDAY AT BEDTIME Oral for 90 Days Active Cyclobenzaprine HCl 10 MG TAKE 1 TABLET BY MOUTH EVERY DAY AT NIGHT NEEDED FOR MUSCLE SPASM Oral for 30 Days Active Pantoprazole Sodium 40 MG TAKE 1 TABLET BY MOUTH EVERY 12 HOURS Oral for 30 Days Active Lisinopril-hydroCHLOROthiazi d e 20-12.5 MG Oral for 90 Days Active buPROPion HCl ER (SR) 150 MG Oral for 68 Days Active metFORMIN HCl 1000 MG Oral for 90 Days Active Vitamin B-12 1000 MCG TAKE 1 TABLET BY M OUTH EVERY MORNING Oral for 30 Days Active Xarelto 20 MG TAKE 1 TABLET BY AFSHAN TH EVERY DAY WITH EVENING MEAL Oral for 90 Days Active tiZANidine HCl 2 MG Oral for 20 Days Active Social History Tobacco Use: Social History Observation Description Date Details (start date - stop date) Never Smoker NA - NA Sex Assigned At : Social History Observation Description Sex Assigned At Male Household Question Answer Notes Marital status: single Number of adults in household: 1 Number of children in household: 0 Level of education: professional schools/Masters/PhD 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 [employer] Tobacco Control (Standard) Question Answer [...] Problem Status W/U Status Risk Notes Problem [id number] MDD (major depressive disorder), recurrent episode, mild (F33.0) Active confirmed Problem [id number] ADRIAN (generalized anxiety disorder) (F41.1) Active confirmed Problem 348005407 History of recent change in lifestyle (Z78.9) Active confirmed Vital Signs Blood pressure systolic 149 mm Hg 02/22/20 24 Blood pressure diastolic 100 mm Hg 024 Heart Rate 118 /min 02/22/2024 Height 75 in 02/22/2024 Weight 290 lbs 02/22/2024 BMI 36.24 kg/m2 02/22/2024 Height-cm 190.5 cm 02/22/2024 Weight-kg 131.54 kg 02/22/2024 Encounters Encounter Location Date Provider Diagnosis [facility] [employer] [facility] [employer] [facility] [address] [facility] [address] [place] [address] 02/22/2024 Kenzie Garnett MDD (major depressive disorder), recurrent episode, mild F33.0 ; ADRIAN (generalized anxiety disorder) F41.1 and History of recent change in lifestyle Z78.9 Assessments Encounter Date Diagnosis (ICD Code) Assessment Notes Treatment Notes Treatment Clinical Notes Section Notes 02/22/2024 MDD (major depressive disorder), recurrent episode, mild (ICD-10 - F33.0) Preventing Depression From Coming Back: Care Instructions material was published, Learning About Depression material was published, Learning About Depression Screening material was published, Learning About How to Get Help During a Mental Health Crisis material was published, Seasonal Affective Disorder: Care Instructions material was published no refill needed today senior living today- adjustment surgery planned 03/16 discuss therapy HAMILTON - will consider if need in near future major depression- Wellbutrin SR 150 mg twice a day- patient reported been helping Anxiety- Vistaril 25 mg twice a day- patient reported been helping http_s://www.[employer]/cannabi p-pia-mlyhdrjw-mar ijuana-adhd/ http_s://www.nava. org/Gcacz-Qzzdvk-Z llness/Mental-Heal th-Conditions http_s://psychcent ral.com/depression /lvm-mepmjrjnm-tem lzbfj-ai-hufgnrnvk n#treatments http__s://www.nimh .nih.gov/health/to pics/mental-health -medications http__s://www.nava .org/About-Mental- Illness/Treatments /Cihzio-Iguhdj-Nsz ications educated on all medications, benefits, side [...] neurotoxicity and interactions with prescribed medications. 02/22/2024 ADRIAN (generalized anxiety disorder) (ICD-10 - F41.1) Generalized Anxiety Disorder: Care Instructions material was published, Learning About Generalized Anxiety Disorder material was published, Learning About Anxiety Disorders material was published no refill needed today senior living today- adjustment surgery planned 03/16 discuss therapy HAMILTON - will consider if need in near future major depression- Wellbutrin SR 150 mg twice a day- patient reported been helping Anxiety- Vistaril 25 mg twice a day- patient reported been helping http_s://www.[employer]/cannabi o-jkn-jxtipsbf-mar ijuana-adhd/ http_s://www.nava. org/Vlryg-Hnqtcw-P llness/Mental-Heal th-Conditions http_s://psychcent JollyDeck.com/depression /utq-jfexdykys-ohl gnnxd-mu-ihewrjqmo n#treatments http__s://www.nimh .nih.gov/health/to pics/mental-health -medications http__s://www.nava .org/About-Mental- Illness/Treatments /Hpvdhc-Pafafq-Qdh ications educated on all medications, benefits, side [...] (ICD-10 - Z78.9) no refill needed today senior living today- adjustment surgery planned 03/16 discuss therapy HAMILTON - will consider if need in near future major depression- Wellbutrin SR 150 mg twice a day- patient reported been helping Anxiety- Vistaril 25 mg twice a day- patient reported been helping http_s://www.G[employer]/cannabi p-mko-mfqwcovb-mar ijuana-adhd/ http_s://www.nava. org/Ojzmv-Orvnlh-O llness/Mental-Heal th-Conditions http_s://psychcent JollyDeck.com/depression /ejp-cjstmnquy-gjb plojp-aj-zlurycplm n#treatments http__s://www.nimh .nih.gov/health/to pics/mental-health -medications http__s://www.nava .org/About-Mental- Illness/Treatments /Xtsnmk-Hhcesk-Jue ications educated on all medications, benefits, side [...] interactions with prescribed medications. Plan Of Treatment Treatment Notes Assessment Notes MDD (major depressive disord er), recurrent episode, mild Preventing Depression From Coming Back: Care Instructions material was published, Learning About Depression material was published, Learning About Depression Screening material was published, Learning About How to Get Help During a Mental Health Crisis material was published, Seasonal Affective Disorder: Care Instructions material was published ADRIAN (generalized anxiety disorder) Gener alized Anxiety Disorder: Care Instructions material was published, Learning About Generalized Anxiety Disorder material was published, Learning About Anxiety Disorders material was published Next Appt Details Follow Up: 2 Months, Reason: f/u depression and anxiety Provider Name:Kenzie Tamir , 10/20/2024 08:45:00 AM, [address], [facility] [address], [place], [address], Progress Notes * Marc LÓPEZ LDOB:1965 (58 yo M)Acc No.[id number]:02/22/2024 Patient: Marc FERGUSON Provider: NILO STONE :1965 A ge:58 Y S ex:Male Date:02/22/2024 Address:[address] [place], [place] [id number] Pcp:Daniel Bradley DO Subjective: * Chief Complaints: * 1 . New patient rx. * HPI: D epression Screening: ADRIAN-7 (2018 Edition) F eeling nervous, anxious, or on edge?Not at all, N ot being able to stop or control worrying N ot at all, W orrying too much about different things S everal days, T rouble relaxing N ot at all, B eing so restless that it is hard to sit still N ot at all, B ecoming easily annoyed or irritable?Not at all, F eeling afraid as if something awful might happen N ot at all, T otal ADRIAN-7 Score 1 , I f you checked any problems, how difficult have they made it for you to do your work, take care of things at home, or get along with other people? N ot difficult at all, I nterpretation of Total ( 0 to 4) No Anxiety. 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, I have no plans with senior living I want to get healthy I have 2 rupture disk in back and knee issue and I am haveing surgery next Wednesday, [facility], reduce pressure in back and I have limited feeling below both knee with numbness, since 10/14, at first I was not able to walk and now a cane, I feel now sad I am leaving my job, physical limited, like to golf and salsa g migel and condition limited it, not hopeless or helpless, I am self sufficant, I feel not anxious, restless or fidgety, no mind racing, sleep fairly good, no CPAP, average 6-9 hours, interrupted for bathroom, no nightmares or flashbacks, no abuse hx, OCD none reported, motivation and interest some what especailly now, I get things done with daily living just limited outside the house, conentration and focus fine, energy meduim, no psychosis, no delusions, no arun, no agitaiton no physical aggression, no anger, no irritable, I live alone and I have a friend to help me after surgery, I have no children, I plan to may go back to work I am young enough and may need a desk job, I talked to team physicians about it from school and may be looking for coordinator for pre ops and appts, lot weight after antibiotics from toe infection and appetite fine now not a lot back pain right now, PCP been adjusting B/P rx with HTN no social anxiety no isolation I am little more emotional since the time frame wiht senior living, and surgery, I was in therapy [facility] in the past, I had rx before from PCP and had nausea on them I am doing better on current rx no refill needed today, no seasonal affective reported, denies SI/HI no plans or intent no past attempts, no thoughts harm to self or others, no self cutting or harm, no psychiatric hospital, FH cousin suicide, no weapons in home, ETOH- occasional smoking- denies labs- recently drugs- denies presently taking Wellbutrin SR 150 mg twice a day V istaril 25 mg twice day- 3-4 years HX RX- Wellbutrin, Vistaril, Sertraline (nausea), Prozac (nausea), uses cane. D epression screening: PHQ-9 L ittle interest or pleasure in doing things S everal days, F eeling down, depressed, or hopeless S everal days, T rouble falling or staying asleep, or sleeping too much N ot at all, F eeling tired or having little energy N ot at all, P oor appetite or overeating N ot at all, F eeling bad about yourself or that you are a failure, or have let yourself or your family down S everal days, T rouble concentrating on things, such as reading the newspaper or watching television N ot at all, M oving or speaking so slowly that other people could have noticed; or the opposite, being so fidgety or restless that you have been moving around a lot more than usual N ot at all, T houghts that you would be better off or of hurting yourself in some way N ot at all, T otal Score 3 , I nterpretation M inimal Depression. I ntervention D epression Screening Findings?Negative, F ollow-Up for Depression M ental health care management, S uicide Risk Assessment Performed , A dditional Evaluation for Depression P sychiatric interview and evaluation, N jaylan of the standardized tool used for adult depression screening: P atient Health Questionnaire (PHQ-9). P ast Psychiatric Hospitalizations: Previous psychiatric hospitalizations P revious Psychiatric Hospitalization N o. P ast History of Suicidal attempt H ave you ever attempted suicide in the past N o. * ROS: r eports n o shortness of breath when walking but reports no chest pain, no arm pain on exertion, no shortness of breath when lying down, no palpitations, no known heart murmur, and no ankle swelling; no cough. r eports no abdominal pain, no nausea, no vomiting, no constipation, normal appetite, no diarrhea, and no GERD; . r eports no headaches and no migraines but reports no loss of consciousness, no weakness, no numbness, no seizures, no dizziness, no tremor, no gait dysfunction, and no paralysis. r eports s leep disturbances restless sleep, and memory loss b ut reports mild depression, feeling safe in a relationship, no alcohol abuse, mild anxiety, no hallucinations, no suicidal thoughts, no mood swings, no agitation, r eports f atigue. reports no fever, no significant weight gain, and significant weight loss 45 pounds 07/17- present- r/t nausea and diarrhea from rx antibiotic r eports wears glasses/contact lenses. reports no incontinence, no difficulty urinating, no hematuria, and no increased frequency.- r eports no muscle aches, no muscle weakness, leg pain- arthralgias/joint pain, no back pain, no swelling in the extremities, no neck pain, and difficulty walking- cane - back surgery scheduled 03/16. * Medical History: E ssential HTN, Cirrhosis, GERD, Morbid Obesity, Past Psychiatric History: Major Depressive Episode, abdominal aortic aneurysm: No, atrial fibrillation: No, chronic fatigue syndrome: No, essential tremor: No, hyperlipidemia: No, hypertension: Yes, Parkinson's disease: No, restless leg syndrome: No, stroke: No, subdural hematoma: No, type 1 diabetes mellitus: No, type 2 diabetes mellitus: Yes, vitamin B12 deficiency: Yes, vitamin D deficiency: No. * Surgical History: r t toe amp 06/2023, gi issues , back surgery pending 02/29/2024. * Hospitalization/Major Diagno stic Procedure: t oe amputation 06/2023. * Family History: F ather: None. M aternal Aunt: None. M aternal Uncle: None. P aternal Aunt: None.?Paternal Uncle: None. M other: None. P aternal Grandfather: None. P aternal Grandmother: None. M aternal Grandfather: None. M aternal Grandmother: None. B rother: None.?Sister: None. S on: None. D aughter: None. * Social History: T obacco Use: T obacco Control (Standard) T obacco use: N Alexa short dditional Findings: Tobacco non-user C urrent nonsmoker. D rug/Alcohol: D rugs H ave you used drugs other than those for medical reasons in the past 12 months??No. D o you smoke marijuana?: Denies. Do you drink alcohol?: Yes, Socially. AUDIT-C (Standard) D id you have a drink containing alcohol in the past year? Y es, H ow often did you have six or more drinks on one occasion in the past year? L ess than monthly (1 point), H ow many drinks did you have on a typical day when you were drinking in the past year? 1 or 2 drinks (0 point), H ow often did you have a drink containing alcohol in the past year? M onthly or less (1 point), P oints 2 , I nterpretation N egative. 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 [employer], A nc household tobacco use? N o, A nc household pets? N o. M iscellaneous: O ccupation: Retired. Safety issues A re there any firearms in the house? N o. S ocial History: H ousehold M arital Status: S nubia, N umber of Adults in household: 1 , N umber of Children in Household: 0 , L evel of Education: P [employer]/Masters/PhD. * Medications: T aking Xarelto 20 MG Tablet TAKE 1 TABLET BY MOUTH EVERY DAY WITH EVENING MEAL Oral , Taking Lisinopril-hydroCHLOROthiazide 20-12.5 MG Tablet Oral , Taking Pantoprazole Sodium 40 MG Tablet Delayed Release TAKE 1 TABLET BY MOUTH EVERY 12 HOURS Oral , Taking Vitamin B-12 1000 MCG Tablet TAKE 1 TABLET BY MOUTH EVERY MORNING Oral , Taking metFORMIN HCl 1000 MG Tablet Oral , Taking buPROPion HCl ER (SR) 150 MG Tablet Extended Release 12 Hour Oral , Taking Prochlorperazine Maleate 5 MG Tablet TAKE 1 TABLET BY MOUTH EVERY 8 HOURS NEEDED FOR NAUSEA AND VOMITING Oral , Taking hydrOXYzine HCl 25 MG Tablet Oral , Taking Cyclobenzaprine HCl 10 MG Tablet TAKE 1 TABLET BY MOUTH EVERY DAY AT NIGHT NEEDED FOR MUSCLE SPASM Oral , Taking Simvastatin 20 MG Tablet TAKE 1 TABLET BY MOUTH EVERYDAY AT BEDTIME Oral , Taking Ondansetron 4 MG Tablet Disintegrating Oral , Taking tiZANidine HCl 2 MG Tablet Oral , Medication List reviewed and reconciled with the patient * Allergies: C ephalexin, Semaglutide. Objective: * Vitals: B P:149/100mm Hg, HR:118/min, Wt:290lbs, Wt-k.54 kg, Ht:75in, Ht-cm: 190.5 cm, BMI:36.24Index, Body Surface Area: 2.64. * Examination: P sychiatry: Appearance: w ell-groomed, well-nourished, appears stated age, over weight. Abnormal body movements: n one. Affect / mood: a ppropriate, full range. Aggression: l ow. Anger control: g ood. Attention: g ood. Attitude: c ooperative. Homicidal ideation: n one. Suicidal ideation: n one. Memory status: n o impairment noted. Degree of awareness of surroundings: w ithin normal limits.? Delusions: n o. Hallucinations: n o. Impulse control: g ood. Insight: g ood. Intellectual functioning: a verage. Comprehension - Intellectual function: a verage. Judgement: g ood. Orientation: a wake, alert and oriented x 3. Perceptual disorders: n o perceptual disorder noted. Psychomotor activity: w ithin normal range. Sexual impulse control: g ood. Speech / language: a ppropriate pitch/modulation, clear and coherent, proper grammar used. Thought content: a ppropriate. Thought process: i ntact. Assessment: * Assessment: 1. M DD (major depressive disorder), recurrent episode, mild - F33.0 (Primary) 2 . G AD (generalized anxiety disorder) - F41.1 3 . H istory of recent change in lifestyle - Z78.9 no refill needed today senior living today- adjustment surgery planned 03/16 discuss therapy HAMILTON - will consider if need in near future major depression- Wellbutrin SR 150 mg twice a day- patient reported been helping Anxiety- Vistaril 25 mg twice a day- patient reported been helping http_s://www.[employer]/pcjypkfv-uvn-wfaebkim-marijuana-adhd/ http_s://www.nava.org/Wuhww-Hdcuag-Wkbyign/Canjsi-Thogce-Fqgiybzwhc http_s://psychcentral.com/depression/vgy-dqsfvrwtj-ekmhazit-of-depression#treatm ents http__s://www.nimh.nih.gov/health/topics/plhozn-rxorfg-tbtgjdxsrqm http__s://www.nava.org/Excrs-Honohh-Gawiqdv/Treatments/Ccwyro-Zwhtxh-Wyaknojqyee educated on all medications, benefits, side effects [...] potential neurotoxicity and interactions with prescribed medications. Plan: * Treatment: 2. G AD (generalized anxiety disorder) Notes: Generalized Anxiety Disorder: Care Instructions material was published, Learning About Generalized Anxiety Disorder material was published, Learning About Anxiety Disorders material was published * Labs: * L ab: UDT (Collection Date & Time - 02/22/2024) Value Reference Range T HC n 0 - 50 ng/ml * C ocaine n 0 - 300 ng/ml * A mphetamine n 0 - 1000 ng/ml * B uprenorphine (BUP) n 0 - 10 ng/ml * S ecobarbital (Bar) n 0 - 300 ng/ml * O xazepam (BZO) n 0 - 300 ng/ml * 2 -ethylidene-1,9-cnjuuulz-7,3-diphenylpyrrolidine (EDDP) n 0 - 300 ng/ml * M ethamphetamine (MET) n 0 - 1000 ng/ml * M ethylenedioxymethamphetamine (MDMA) n 0 - 500 ng/ml * M orphine (MOP 300/UTD1262) n 0 - 300 ng/ml * M ethadone (MTD) n 0 - 300 ng/ml * P hencyclidine (PCP) n 0 - 25 ng/ml * P ropoxyphene (PPX) n 0 - 300 ng/ml * N ortriptyline (TCA) n 0 - 1000 ng/ml * O xycodone n 0 - 300 ng/ml * Procedure Codes: 8 0306 DRUG TST PRSMV READ INSTRMNT ASSTD DIR OPT OBS, 17042 BEHAV ASSMT W/SCORE & DOCD/STAND INSTRUMENT, G2211 VISIT COMPLEXITY INHERENT TO ONGOING CARE RELATED TO A PATIENT'S SINGLE, SERIOUS CONDITION OR A COMPLEX CONDITION, 25401 PSYCHIATRIC DIAGNOSTIC EVAL W/MEDICAL SERVICES * Preventive Medicine: Counseling: B P Management: F IRST HYPERTENSIVE BP READING FOLLOW-UP PLAN: e ducated on healthy b/p 120/80monitor b/p at homerefer to PCP, Urgent care/ERheart healthy diet and exciselimit salt intakePCP prescribes rx B/P, R EFERRAL TO ALTERNATIVE / PRIMARY CARE PROVIDER:?____. * Follow Up: 2 Months (Reason: f/u depression and anxiety) * Billing Information: * Visit Code: * Procedure Codes: 62066 DRUG TST PRSMV READ INSTRMNT ASSTD DIR OPT OBS. 30533 BEHAV ASSMT W/SCORE & DOCD/STAND INSTRUMENT. G2211 VISIT COMPLEXITY INHERENT TO ONGOING CARE RELATED TO A PATIENT'S SINGLE, SERIOUS CONDITION OR A COMPLEX CONDITION. 84387 PSYCHIATRIC DIAGNOSTIC EVAL W/MEDICAL SERVICES. * Sign off status: Completed true * Provider: NILO STONE Date: Generated for Tomas foreman/Sury/Antonieta on: 0 08/07/2024 09:53 AM CDT History and Physical Notes * HPI (History of Present Illness) Category Sub-Category Detail Notes Category Not es Past Psychiatric Hospitalizations Previous psychiatric hospitalizations Previous Psychiatric Hospitalization: No Past History of Suicidal attempt Have yo u ever attempted suicide in the past: No Depression screening PHQ-9 Little inte rest or pleasure in doing things: Several days Feeling down, depressed, or hopeless: Se veral days Trouble falling or staying asleep, or sl eeping too much: Not at all Feeling tired or having little energy: N ot at all Poor appetite or overeating: Not at all Feeling bad about yourself o r that you are a failure, or have let yourself or your family down: Several days Trouble concentrating on thi ngs, such as reading the newspaper or watching television: Not at all Moving or speaking so slowly that other people could have noticed; or the opposite, being so fidgety or restless that you have been moving around a lot more than usual: Not at all Thoughts that you would be b robert off or of hurting yourself in some way: Not at all Total Score: 3 Interpretation: Minimal Depression Intervention Depression Screening Findings: N egative Follow-Up for Depression: Mental health care management Suicide Risk Assessment Performed: ____ Additional Evaluation for Depression: Ps ychiatric interview and evaluation Name of the standardized too l used for adult depression screening:: Patient Health Questionnaire (PHQ-9) Depression Screening ADRIAN-7 (2018 Edition) Feeling nervous, anxious, or on edge: Not at all This is a 58 year old white single male here to establish care for depression and anxiety, PCP refer me here for medications, I have depression and anxiety I get anxious now and then, and I feel depression with a lot changes in life today is first day senior living force related to medical issues, 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, 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, 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, I have no plans with senior living I want to get healthy I have 2 rupture disk in back and knee issue and I am haveing surgery next Wednesday, [facility], reduce pressure in back and I have limited feeling below both knee with numbness, since 10/14, at first I was not able to walk and now a cane, I feel now sad I am leaving my job, physical limited, like to golf and salsa garden and condition limited it, not hopeless or helpless, I am self sufficant, I feel not anxious, restless or fidgety, no mind racing, sleep fairly good, no CPAP, average 6-9 hours, interrupted for bathroom, no nightmares or flashbacks, no abuse hx, OCD none reported, motivation and interest some what especailly now, I get things done with daily living just limited outside the house, conentration and focus fine, energy meduim, no psychosis, no delusions, no arun, no agitaiton no physical aggression, no anger, no irritable, I live alone and I have a friend to help me after surgery, I have no children, I plan to may go back to work I am young enough and may need a desk job, I talked to team physicians about it from school and may be looking for coordinator for pre ops and appts, lot weight after antibiotics from toe infection and appetite fine now not a lot back pain right now, PCP been adjusting B/P rx with HTN no social anxiety no isolation I am little more emotional since the time frame wiht senior living, and surgery, I was in therapy [facility] in the past, I had rx before from PCP and had nausea on them I am doing better on current rx no refill needed today, no seasonal affective reported, denies SI/HI no plans or intent no past attempts, no thoughts harm to self or others, no self cutting or harm, no psychiatric hospital, FH cousin suicide, no weapons in home, ETOH- occasional smoking- denies labs- recently drugs- denies presently taking Wellbutrin SR 150 mg twice a day Vistaril 25 mg twice day- 3-4 years HX RX- Wellbutrin, Vistaril, Sertraline (nausea), Prozac (nausea), uses cane Not being able to stop or control worryi ng: Not at all Worrying too much about different things : Several days Trouble relaxing: Not at all Being so restless that it is hard to sit still: Not at all Becoming easily annoyed or irritable: No t at all Feeling afraid as if something awful fabio ht happen: Not at all Total ADRIAN-7 Score: 1 If you checked any problems, how difficult have they made it for you to do your work, take care of things at home, or get along with other people?: Not difficult at all Interpretation of Total: (0 to 4) No Anx iety Examination Category Sub-Category Detail Notes Category Not es Psychiatry Appearance: well-groomed, we ll-nourished, appears stated age, over weight Attitude: cooperative Psychomotor activity: within normal rang e Abnormal body movements: none Attention: good Degree of awareness of surroundings: wit hin normal limits Orientation: awake, alert and dany ented x 3 Affect / mood: appropriate, full ra nge Speech / language: appropriate pitch/mo dulation, clear and coherent, proper grammar used Insight: good Judgement: good Thought process: intact Thought content: appropriate Perceptual disorders: no perceptual diso rder noted Aggression: low Anger control: good Suicidal ideation: none Homicidal ideation: none Intellectual functioning: average Impulse control: good Sexual impulse control: good Memory status: no impairment noted Delusions: no Hallucinations: no Comprehension - Intellectual function: a verage
--- OUTSIDE RECORDS SUMMARY | 2024-08-07 09:53 | XMS_ITS | Clinical Summary ---
Author Organization [facility] Medical Office Building [address] Address [address] [place] [address] Care Team Providers Care Promotion Producer Name Role Phone Daniel Bradley DO Primary Care Provider [phone] Ashley Gonsales MD Unavailable [phone] Allergies Active Allergy Reactions Criticality Noted Date Comments Cephalexin Nausea only Low 10/05/2023 Levofloxacin Nausea only Low 10/05/2023 Semaglutide Nausea & Vomiting Low 11/22/2023 Medications hydrOXYzine (ATARAX) 25 mg tablet Take 1 tablet (25 mg total) by mouth 2 (two) times a day 10/04/19 21 Active simvastatin (ZOCOR) 20 mg tablet Take 1 tablet (20 mg total) by mouth nightly 08/07/19 21 Active Accu-Chek Guide test strips strip USE TO CHECK BLOOD SUGARS ONCE DAILY 10/08/19 23 Active Accu-Chek Guide Me Glucose Mtr misc USE TO CHECK BLOOD SUGAR ONCE DAILY 10/06/19 23 Active buPROPion SR (WELLBUTRIN SR) 150 mg 12 hr tablet Take 1 tablet (150 mg total) by mouth 2 (two) times a day 10/22/19 23 Active Accu-Chek Softclix Lancets lancets USE TO CHECK BLOOD SUGAR ONCE DAILY 10/24/19 23 Active metFORMIN (GLUCOPHAGE) 1,000 mg tablet Take 1 tablet (1,000 mg total) by mouth daily with breakfast 10/28/19 23 Active ondansetron ODT (ZOFRAN-ODT) 4 mg disintegrating tablet Take 1 tablet (4 mg total) by mouth every 8 (eight) hours as needed for nausea or vomiting 20 tablet 1 10/20/19 24 Active cyclobenzaprine (FLEXERIL) 10 mg tablet TAKE 1 TABLET BY MOUTH EVERY DAY NIGHTLY NEEDED FOR MUSCLE SPASMS 30 tablet 1 11/15/19 24 Active multivitamin with minerals tablet Take 1 tablet by mouth daily Active acidophilus-pectin , citrus 100 million cell-10 mg capsule Take 1 capsule by mouth daily Trade name: Align Active pantoprazole DR (PROTONIX) 40 mg EC tablet Take 1 tablet (40 mg total) by mouth every 12 (twelve) hours 01/10/20 24 Active vitamin B-12 1,000 mcg tablet Take 1 tablet (1,000 mcg total) by mouth every morning 01/10/20 24 Active prochlorperazine (COMPAZINE) 5 mg tablet Take 1 tablet (5 mg total) by mouth as needed 12/20/19 24 Active lisinopril-hydroCH LOROthiazide (ZESTORETIC) 20-25 mg per tabletIndications: hypertension Take 1 tablet by mouth daily Active herbal drugs tablet Take 1 tablet by mouth daily Active omeprazole OTC (PriLOSEC OTC) 20 mg EC tablet Take 1 tablet (20 mg total) by mouth daily Active Xarelto 20 mg tablet Take 1 tablet (20 mg total) by mouth daily with dinner 06/05/19 25 Active tiZANidine (ZANAFLEX) 2 mg tablet Oral for 20 Days Active alpha lipoic acid 600 mg capsule 07/03/19 25 Active potassium gluconate 595 mg (99 mg) tablet Take 1 tablet (595 mg total) by mouth daily 025 Discontin ued(Thera py completed ) Active Problems Problem Noted Date Diagnosed Date Status post lumbar spine vish lorenza for decompression of spinal cord 07/07/2024 Diabetic neuropathy associat ed with type 2 diabetes mellitus 07/07/2024 Numbness 06/22/2024 Lumbar stenosis with neurogenic claudication Bilateral foot-drop 02/11/2024 Encounters Date Type Department Care Team Description 07/27/2024 9:45 AM TAPE RECORDING MACHINE OPERATOR - 07/27/2024 11:59 PM [facility] Hospital Encounter [facility] [address] [address], [address] [place] [address] Papa Nixon MD PhD Diabetic neuropathy associated with type 2 diabetes mellitus (HCC) - Bilateral (Primary Dx) Discharge Disposition: Discharge to home or self care 07/27/2024 Telephone [facility] [address], [address] [place] [address] Papa Nixon MD PhD 07/24/2024 8:20 AM TAPE RECORDING MACHINE OPERATOR Procedure visit [facility] Neurological Testing [address] [facility] [address] [place] [address] [place] [id number] Numbness 07/19/2024 Telephone [facility] at [address], [address] [place] [address] Papa Nixon MD PhD [employer] pre-call 06/26/2024 Telephone [facility] at [address], [address] [place] [address] Papa Nixon MD PhD 06/22/2024 9:44 AM TAPE RECORDING MACHINE OPERATOR - 06/22/2024 11:59 PM TAPE RECORDING MACHINE OPERATOR Hospital Encounter [facility] [address], [address] [place] [address] Papa Nixon MD PhD Diabetic neuropathy associated with type 2 diabetes mellitus (HCC) (Primary Dx); Status post lumbar spine surgery for decompression of spinal cord; Numbness Discharge Disposition: Discharge to home or self care 06/22/2024 Telephone [facility] [address], [address] [place] [address] Papa Nixon MD PhD [employer] 06/01/2024 Telephone [facility] at [address], [address] [place] [address] Papa Nixon MD PhD Anticoagulation 06/01/2024 Telephone [facility] [address] [facility] [address] [place] [address] Ariella Moreno RN PMC Intake Assessment 05/31/2024 10:00 AM TAPE RECORDING MACHINE OPERATOR Office Visit [facility] Neurosurgery Clinic [address] [place] [address] Jonathon Dee MD Status post lumbar spine surgery for decompression of spinal cord (Primary Dx); Numbness from Last 3 Months Surgical History Surgery Date Site/Laterality Comments TONSILLECTOMY 05/24/1969 - 05/23/1970 FOOT SURGERY 06/24/2023 - 07/22/2023 Right Big toe partial amputation COLONOSCOPY 12/23/2023 - 01/22/2024 ESOPHAGOGASTRODUODENOSCOPY 12/23/2023 - 01/22/2024 N/A Medical History Medical History Date Comments Hypertension History of blood clots PE 7 yrs ago Hypercholesteremia Neuropathy in diabetes (HCC) Obesity GERD (gastroesophageal reflux disease) ADHD (attention deficit hype ractivity disorder) Type 2 diabetes mellitus ([facility]) Foot drop, bilateral states slig htly uses cane prn Claustrophobia states when put anesthesia mask on DVT (deep venous thrombosis) ([facility]) Varicose vein of leg right leg w orse than left Family History Medical History Relation Name Comments Arthritis Other 1 Family history of Arthritis; Heart disease Other 1 Gout Other 2 Family history of Gout; Stroke Other 3 Family history of Stroke; Hypertension Other 4 Family history of Hypertension; Cancer Other 5 Family history of Cancer, unknown; Diabetes Other 5 Blood Clot Other 6 Family history of Blood Clots; Relation Name Status Comments Other 1 Other 2 Other 3 Other 4 Other 5 Other 6 Social History Tobacco Use Types Packs/Day Years Used Date Smoking Tobacco: Never Smokeless Tobacco: Never Tobacco Cessation:Counseling Given: Not Answered AUDIT-C Answer Date Recorded Q1: How often do you have a drink containing alcohol? Never 07/27/2024 Q2: How many drinks containi ng alcohol do you have on a typical day when you are drinking? Patient does not drink Q3: How often do you have si x or more drinks on one occasion? Never 07/27/2024 Personal Safety Answer Date Recorded Have you ever been in or are you currently in a harmful physical or emotional relationship or is someone making you feel afraid or unsafe? Denies 03/09/2024 Sex and Gender Information Value Date Recorded Sex Assigned at Not on file Legal Sex Male 3:20 AM TAPE RECORDING MACHINE OPERATOR Gender Identity Not on file Sexual Orientation Not on file Obstetrics History Last Filed Vital Signs Vital Sign Reading Time Taken Comments Blood Pressure 137/73 07/27/2024 11:26 AM TAPE RECORDING MACHINE OPERATOR Qutenza patches removed and cooling lotion applied Pulse 88 07/27/2024 11:26 AM TAPE RECORDING MACHINE OPERATOR Temperature 36.4 C (97.5 F) 07/27/2024 10:14 AM TAPE RECORDING MACHINE OPERATOR Respiratory Rate 20 07/27/2024 11:2 6 AM TAPE RECORDING MACHINE OPERATOR Oxygen Saturation 95% 07/27/2024 11: 26 AM TAPE RECORDING MACHINE OPERATOR Inhaled Oxygen Concentration - - Weight 160.6 kg (354 lb) 07/27/2024 10: 14 AM TAPE RECORDING MACHINE OPERATOR Height 190.5 cm (6' 3 ) 07/27/2024 10:1 4 AM TAPE RECORDING MACHINE OPERATOR Body Mass Index 44.25 07/27/2024 10:14 AM TAPE RECORDING MACHINE OPERATOR Plan of Treatment Health Maintenance Due Date Last Done Comments Albumin Creatinine Ratio, Urine 1963 Colon Cancer Screening-Colonoscopy 1963 Depression Screening 1963 Hepatitis C Screening 1963 Prostate Cancer Screening-PSA 1963 Dilated Eye Exam 1963 Foot Exam 1963 Lipid Panel 1963 DTaP/Tdap/Td Vaccine (1 - Tdap) 08/30/1974 Hepatitis B Screening 08/30/1981 Regular Well Visit/Exam 18-64 08/30/1981 Pneumococcal vaccine <65 (1 of 2 - PCV) 08/30/1982 Zoster Vaccine (1 of 2) 08/30/2013 Influenza Vaccine (#1) 2024 Hemoglobin A1C 08/16/2024 02/17/2024, 11/23/2023 eGFR 02/16/2025 02/17/2024, 11/23/2023 Procedures Procedure Name Priority Date/Time Associated Diagnosis Comments EMG/NCV Routine 07/24/2024 8:28 AM TAPE RECORDING MACHINE OPERATOR Numbness EGFR Routine 02/17/2024 12:47 PM CDT Lumbar stenosis with neurogenic claudication Bilateral foot-drop HEMOGLOBIN A1C Routine 02/17/2024 12:47 PM CDT Lumbar stenosis with neurogenic claudication Bilateral foot-drop from Last 3 Months or Most Recently Relevant to Health Maintenance Results * EMG/NCV (07/24/2024 8:28 AM TAPE RECORDING MACHINE OPERATOR) Anatomical Region Laterality Modality Other Narrative 07/24/2024 8:28 AM TAPE RECORDING MACHINE OPERATOR Josue Quijano MD 07/24/2024 9:54 AM EMG/NCV - Date/Time: 07/24/2024 8:28 AM Performed by: Josue Quijano MD Authorized by: Papa Nixon MD PhD us Papa Nixon MD PhD NEUROLOGY ORD ERABLES Final Result * eGFR (02/17/2024 12:47 PM CDT) eGFR 85 >=60 mL/min/1. 73 m2 Comment: Interpretive Data Reference Interval Normal >/= 90 mL/min/1.73m2 Mildly decreased* 60 - 89 mL/min/1.73m2 Mildly to moderately decreased 45 - 59 mL/min/1.73m2 Moderately to severely decreased 30 - 44 mL/min/1.73m2 Severely decreased 15 - 29 mL/min/1.73m2 Kidney Failure < 15 mL/min/1.73m2 *Relative to young adult level Estimated glomerular filtration rate is determined by the 2020 CKD-EPI equation recommended by the National Kidney Foundation (A Unifying Approach to GFR Estimation: Recommendations of the NKF-ASK Task Force on Reassessing the Inclusion of Race in Diagnosing Kidney Disease, JASN 202). The CKD-EPI equation should not be used for patients with unstable renal function and has not been validated in children and those over 70. Current interpretive data was last reviewed 2021. Blood 02/17/2024 12:4 7 PM CDT 02/17/2024 12:54 PM CDT us Jonathon Dee MD LAB BLOOD ORDERABLES Fin al Result Performing Organization Address [facility] de Phone Number [facility] [place] [address] * Hemoglobin A1c (02/17/2024 12:47 PM CDT) Hgb A1C 5.1 4.0 - 5.6 % Estimated Average Glucose 100 mg/dL KATARINAAR Comment: The ADA recommends reporting an estimated Average Glucose (eAG) with all Hemoglobin A1c results using the equation derived from a study of 507 normal and diabetic adults. Minority populations were underrepresented and children were not included. (Diabetes Care 31:4090-7107, 2008). The eAG is not equivalent to a fasting glucose. Blood 02/17/2024 12:4 7 PM CDT 02/17/2024 12:54 PM CDT Jonathon Dee MD LAB BLOOD ORDERABLES Fin al Result Performing Organization Address [facility] de Phone Number [facility] [place] [address] from Last 3 Months or Most Recently Relevant to Health Maintenance Insurance [facility] [id number] [facility] [id number] [facility] [id number] Care Teams Promotion Producer Relationship Specialty Start Date End Date Daniel Bradley DO PCP - General Internal Medicine 10/16/20 Ashley Gonsales MD Consulting Physician Family Medicine 02/02/24
--- OUTSIDE RECORDS SUMMARY | 2024-08-07 09:53 | XMS_ITS ---
Author Organization [facility] Address [address] [place] [address] Care Team Providers Care Radiological Engineer Name Role Phone Mirna STALEY Daniel Primary Care Provider Kenzie Lundberg Unavailable [phone] Destiney Almazan APN Unavailable Unavailable Allergies Allergen (clinical drug ingredient) Drug/Non Drug Allergy documented on EMR Reaction Allergy Type Onset Date Status cephalexin Cephalexin Unknown Drug Allergy Activ e semaglutide Semaglutide Unknown Drug Allergy Act aung REASON FOR VISIT f/u rx Medications Medication SIG (Take, Route, Frequency, Duration) Notes Start Date End Date Status metFORMIN HCl 1000 MG Oral for 90 Days Active buPROPion HCl ER (SR) 150 MG Oral for 68 Days Active Prochlorperazine Maleate 5 MG TAKE 1 TAB LET BY MOUTH EVERY 8 HOURS NEEDED FOR NAUSEA AND VOMITING Oral for 7 Days Active hydrOXYzine HCl 25 MG Oral for 90 Days Active Cyclobenzaprine HCl 10 MG TAKE 1 TABLET BY MOUTH EVERY DAY AT NIGHT NEEDED FOR MUSCLE SPASM Oral for 30 Days Active Xarelto 20 MG TAKE 1 TABLET BY AFSHAN TH EVERY DAY WITH EVENING MEAL Oral for 90 Days Active tiZANidine HCl 2 MG Oral for 20 Days Active Lisinopril-hydroCHLOROthiazi d e 20-12.5 MG Oral for 90 Days Active Pantoprazole Sodium 40 MG TAKE 1 TABLET BY MOUTH EVERY 12 HOURS Oral for 30 Days Active Vitamin B-12 1000 MCG TAKE 1 TABLET BY M OUTH EVERY MORNING Oral for 30 Days Active Ondansetron 4 MG Oral for 6 Days Active Simvastatin 20 MG TAKE 1 TABLET BY AFSHAN TH EVERYDAY AT BEDTIME Oral for 90 Days Active Social History Sex Assigned At : Social History Observation Description Sex Assigned At Male Encounters Encounter Location Date Provider Diagnosis [facility] [address] [place] [address] 05/01/2024 Kenzie Garnett MDD (major depressive disorder), recurrent episode, mild F33.0 ; ADRIAN (generalized anxiety disorder) F41.1 and History of recent change in lifestyle Z78.9 Assessments Encounter Date Diagnosis (ICD Code) Assessment Notes Treatment Notes Treatment Clinical Notes Section Notes 05/01/2024 MDD (major depressive disorder), recurrent episode, [...] 2 refills of 90 Vistaril left reported halfway today- adjustment surgery planned 03/16 discuss therapy HAMILTON - will consider if need in near future major depression- Wellbutrin SR 150 mg twice a day- patient reported been helping Anxiety- Vistaril 25 mg twice a day- patient reported been helping http_s://www.[employer]/cannabi y-ara-yxdjgykz-mar ijuana-adhd/ http_s://www.nava. org/Ynogf-Ktdvit-Q llness/Mental-Heal th-Conditions http_s://psychcent SeeJay.com/depression /obv-oxbyyxlcm-ccq pmqig-pa-bzavegnep n#treatments http__s://www.nimh .nih.gov/health/to pics/mental-health -medications http__s://www.nava .org/About-Mental- Illness/Treatments /Djfkmp-Hypxhr-Ihp ications educated on all medications, benefits, side [...] 2 refills of 90 Vistaril left reported halfway today- adjustment surgery planned 03/16 discuss therapy HAMILTON - will consider if need in near future major depression- Wellbutrin SR 150 mg twice a day- patient reported been helping Anxiety- Vistaril 25 mg twice a day- patient reported been helping http_s://www.[employer]/cannabi a-qid-sqcggpgs-mar ijuana-adhd/ http_s://www.nava. org/Dkbzt-Oozjwu-E llness/Mental-Heal th-Conditions http_s://psychcent ral.com/depression /rdu-klkzmpinx-wwe svytl-kp-bausvmydi n#treatments http__s://www.nimh .nih.gov/health/to pics/mental-health -medications http__s://www.nava .org/About-Mental- Illness/Treatments /Wgezbf-Ofngxs-Rbc ications educated on all medications, benefits, side [...] 2 refills of 90 Vistaril left reported halfway today- adjustment surgery planned 03/16 discuss therapy HAMILTON - will consider if need in near future major depression- Wellbutrin SR 150 mg twice a day- patient reported been helping Anxiety- Vistaril 25 mg twice a day- patient reported been helping http_s://www.[employer]/cannabi t-fjr-gnempvsv-mar ijuana-adhd/ http_s://www.nava. org/Amern-Smquil-Q llness/Mental-Heal th-Conditions http_s://psychcent SeeJay.com/depression /aqf-oelytnbni-ddt wkhod-hz-yrytwiojt n#treatments http__s://www.nimh .nih.gov/health/to pics/mental-health -medications http__s://www.nava .org/About-Mental- Illness/Treatments /Iirrtj-Drjser-Hfh ications educated on all medications, benefits, side [...] was published Next Appt Details Follow Up: 3 Months, Reason: f/u rx Provider Name:Kenzie Garnett , 10/20/2024 08:45:00 AM, [address], [facility] [address], [place], [address], Progress Notes * Marc LÓPEZ LDOB:1965 (58 yo M)Acc No.[id number]:05/01/2024 Patient: Mery Marc ELIAS Provider: NILO STONE :1965 A ge:58 Y S ex:Male Date:05/01/2024 [facility] Pcp:Daniel Bradley DO Subjective: * Chief Complaints: * 1 . F/u rx. * HPI: D epression Screening: ADRIAN-7 [...] Total ( 0 to 4) No Anxiety. Follow up depresison, anxiety chronic since last visit reported I had micro diskectomy and not have pain and still have lower legs and feet numb and I feel holidays are rough always, triggers depression and anxiety, all my family Ihave a few dinners and lunches scheduled with freinds, medications all fine, no s/e. 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 * ROS: r eports n o shortness of breath no chest pain no palpitations, no known heart murmur, and no ankle swelling; no cough. r eports no abdominal pain, no nausea, no vomiting, no constipation, normal appetite, no diarrhea, and no GERD; . r eports no headaches and no migraines but reports no loss of consciousness, no weakness, no numbness, no seizures, no dizziness, no tremor, gait dysfunction- uses cane and balance- surgery back 04/16, and no paralysis. r eports mild sleep disturbances restless sleep, and memory loss reported depression, feeling safe in a relationship, no alcohol abuse, mild anxiety, no hallucinations, no suicidal thoughts, no mood swings, no agitation, r eports f atigue. reports no fever, no significant weight gain, and significant weight loss 45 pounds 07/17-? no diarrhea no nausea r eports wears glasses/contact lenses. reports no incontinence, no difficulty urinating, no hematuria, and no increased frequency.- r eports no muscle aches, no muscle weakness, leg pain- arthralgias/joint pain, no back pain, no swelling in the extremities, no neck pain, and difficulty walking- cane - back surgery 04/16. * Medical History: E ssential HTN, Cirrhosis, [...] deficiency: Yes, vitamin D deficiency: No. * Medications: T aking Xarelto 20 MG [...] Allergies: C ephalexin, Semaglutide. Objective: * Vitals: * Examination: P sychiatry: Appearance: w ell-groomed, [...] lifestyle - Z78.9 no refill needed today has 9 0 day Welbutrin and 2 refills of 90 Vistaril left reported halfway today- adjustment surgery planned 03/16 discuss therapy HAMILTON - will consider if need in near future major depression-Wellbutrin SR 150 mg twice a day- patient reported been helping Anxiety-Vistaril 25 mg twice a day- patient reported been helping http_s://www.[employer]/tenanqce-soz-kbqqmlfx-marijuana-adhd/ http_s://www.nava.org/Nxylr-Jqlxsd-Ahjnvjm/Wjlrrv-Guktqg-Sgzxojhyrs http_s://psychNew WORC ([employer]) Development & Managementral.com/depression/tam-hdjcrafvr-wmekjupc-of-depression#treatm ents http__s://www.[facility].nih.gov/health/topics/quvytt-wdwnjj-gsuouogbkjs http__s://www.nava.org/Qmtbq-Ihkcaa-Pzdajxy/Treatments/Dermta-Etlljd-Kkhwnifrvkf educated on all medications, benefits, side effects [...] About Anxiety Disorders material was published * Procedure Codes: G 2211 VISIT COMPLEXITY INHERENT TO ONGOING CARE RELATED TO A PATIENT'S SINGLE, SERIOUS CONDITION OR A COMPLEX CONDITION * Follow Up: 3 Months (Reason: f/u rx) * Billing Information: * Visit Code: 08909 OFFICE OUTPATIENT VISIT 25 MINUTES DETAILED HISTORY AND EXAM/MODERATE MEDICAL DECISION MAKING. * Procedure Codes: G2211 VISIT COMPLEXITY INHERENT TO ONGOING CARE RELATED TO A PATIENT'S SINGLE, SERIOUS CONDITION OR A COMPLEX CONDITION. 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 Sign off status: Completed true * Provider: NILO STONE Date: 07/02/2023 Generated for Tomas foreman/Sury/Antonieta on: 0 08/07/2024 09:53 AM CDT History and Physical Notes * HPI (History of Present Illness) Category Sub-Category Detail Notes Category Not es Depression Screening ADRIAN-7 (2018 Edition) Chemo florian nervous, anxious, or on edge: Not at all Follow up depresison, anxiety chronic since last visit reported I had micro diskectomy and not have pain and still have lower legs and feet numb and I feel holidays are rough always, triggers depression and anxiety, all my family Ihave a few dinners and lunches scheduled with freinds, medications all fine, no s/e. 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
--- OUTSIDE RECORDS SUMMARY | 2024-08-07 09:53 | XMS_ITS | Referral Summary ---
Author Organization [facility] Address [address] [place] [address] Care Team Providers Care Sports Internship Name Role Phone Daniel Bradley DO Primary Care Provider [phone]- [phone] Ashley Gonsales MD Unavailable [phone] Encounters Date Type Department Care Team Description 07/27/2024 Telephone [facility] at [address] [place] [address] Papa Nixon MD PhD 07/27/2024 9:45 AM CERTIFIED FAMILY MEDIATOR - 07/27/2024 11:59 PM CERTIFIED FAMILY MEDIATOR Hospital Encounter [facility] at [address], [address] [place] [address] Papa Nixon MD PhD Diabetic neuropathy associated with type 2 diabetes mellitus (HCC) - Bilateral (Primary Dx) Discharge Disposition: Discharge to home or self care 07/24/2024 8:20 AM CERTIFIED FAMILY MEDIATOR Procedure visit [facility] Neurological Testing [address] [place] [address] [place] [address] Numbness 07/19/2024 Telephone [facility] at [address] [place] [address] Papa Nixon MD PhD Eliz pre-call 06/26/2024 Telephone [facility] at [address] [place], [place] [address] Papa Nixon MD PhD 06/22/2024 Telephone [facility] at [address] [place], [place] [address] Papa Nixon MD PhD [facility] 06/22/2024 9:44 AM CERTIFIED FAMILY MEDIATOR - 06/22/2024 11:59 PM [facility] Hospital Encounter [facility] at [address] [place], [place] [address] Papa Nxion MD PhD Diabetic neuropathy associated with type 2 diabetes mellitus (HCC) (Primary Dx); Status post lumbar spine surgery for decompression of spinal cord; Numbness Discharge Disposition: Discharge to home or self care 06/01/2024 Telephone [facility] at [address] [place] [address] Papa Nixon MD PhD [facility] 06/01/2024 Telephone [facility] at [address] [place], [place] [address] Ariella Moreno RN PMC Intake Assessment 05/31/2024 10:00 AM [facility] Office Visit [facility] [address] [place] [address] [address], [address] [place] [address] Jonathon Dee MD Status post lumbar spine surgery for decompression of spinal cord (Primary Dx); Numbness from Last 3 Months Allergies Active Allergy Reactions Criticality Noted Date [...] 1 capsule by mouth daily Trade name: Keturah Active pantoprazole DR (PROTONIX) 40 mg EC [...] mg total) by mouth daily 025 Discontin ued(Laz py completed ) Active Problems Problem Noted Date Diagnosed Date Status post lumbar spine vish lorenza for decompression of spinal cord 07/07/2024 Diabetic neuropathy associat ed with type 2 diabetes mellitus 07/07/2024 Numbness 06/22/2024 Lumbar stenosis with neurogenic claudication Bilateral foot-drop 02/11/2024 Social History Tobacco Use Types Packs/Day Years [...] on file Legal Sex Male 3:20 AM CERTIFIED FAMILY MEDIATOR Gender Identity Not on file Sexual Orientation Not on file Last Filed Vital Signs Vital Sign Reading Time Taken Comments Blood Pressure 137/73 07/27/2024 11:26 AM CERTIFIED FAMILY MEDIATOR Qutenza patches removed and cooling lotion applied Pulse 88 07/27/2024 11:26 AM CERTIFIED FAMILY MEDIATOR Temperature 36.4 C (97.5 F) 07/27/2024 10:14 AM CERTIFIED FAMILY MEDIATOR Respiratory Rate 20 07/27/2024 11:2 6 AM CERTIFIED FAMILY MEDIATOR Oxygen Saturation 95% 07/27/2024 11: 26 AM CERTIFIED FAMILY MEDIATOR Inhaled Oxygen Concentration - - Weight 160.6 kg (354 lb) 07/27/2024 10: 14 AM CERTIFIED FAMILY MEDIATOR Height 190.5 cm (6' 3 ) 07/27/2024 10:1 4 AM CERTIFIED FAMILY MEDIATOR Body Mass Index 44.25 07/27/2024 10:14 AM CERTIFIED FAMILY MEDIATOR Plan of Treatment Not on file Procedures Procedure Name Priority Date/Time Associated Diagnosis Comments EMG/NCV Routine 07/24/2024 8:28 AM CERTIFIED FAMILY MEDIATOR Numbness EGFR Routine 02/17/2024 12:47 PM CDT Lumbar stenosis with neurogenic claudication Bilateral foot-drop HEMOGLOBIN A1C Routine 02/17/2024 12:47 PM CDT Lumbar stenosis with neurogenic claudication Bilateral foot-drop from Last 3 Months or Most Recently Relevant to Health Maintenance Results * EMG/NCV (07/24/2024 8:28 AM CERTIFIED FAMILY MEDIATOR) Anatomical Region Laterality Modality Other Narrative 07/24/2024 8:28 AM CERTIFIED FAMILY MEDIATOR Josue Quijano MD 07/24/2024 9:54 AM EMG/NCV - Date/Time: 07/24/2024 8:28 AM Performed by: Josue Quijano MD Authorized by: Papa Nixon MD PhD Papa Nixon MD PhD NEUROLOGY ORD ERABLES [...] of Race in Diagnosing Kidney Disease, JASN 2020). The CKD-EPI equation should not be used for patients with unstable renal function and has not been validated in children and those over 70. Current interpretive data was last reviewed 2021. Blood 02/17/2024 12:4 7 PM CDT 02/17/2024 12:54 PM CDT Jonathon Dee MD LAB BLOOD ORDERABLES Fin al Result Performing Organization Address [facility] Co de Phone Number KEL [address] [address] * Hemoglobin A1c (02/17/2024 12:47 PM CDT) Hgb A1C 5.1 4.0 - 5.6 % Estimated Average Glucose 100 mg/dL KATARINAAR Comment: The ADA recommends reporting an estimated Average Glucose (eAG) with all Hemoglobin A1c results using the equation derived from a study of 507 normal and diabetic adults. Minority populations were underrepresented and children were not included. (Diabetes Care 31:6202-5056, 2008). The eAG is not equivalent to a fasting glucose. Blood 02/17/2024 12:4 7 PM CDT 02/17/2024 12:54 PM CDT Jonathon Dee MD LAB BLOOD ORDERABLES Fin al Result Performing Organization Address [facility] Co de Phone Number KEL [address] [address] from Last 3 Months or Most Recently Relevant to Health Maintenance Insurance [facility] [id number] [place] [id number] [facility] [id number] Care Teams Sports Internship Relationship Specialty Start Date End Date Daniel Bradley DO PCP - General Internal Medicine 10/16/20 Ashley Gonsales MD Consulting Physician Family Medicine 02/02/24
--- OUTSIDE RECORDS SUMMARY | 2024-08-07 09:53 | XMS_ITS ---
Author Organization [facility] [employer] Address [address] [place] [address] Care Team Providers Care Chemistry Laboratory Technician Name Role Phone Mirna STALEY Daniel Primary Care Provider Kenzie Lundberg Unavailable [phone] Destiney Almazan APN Unavailable Unavailable Allergies Allergen (clinical drug ingredient) Drug/Non Drug Allergy documented on EMR Reaction Allergy Type Onset Date Status cephalexin Cephalexin Unknown Drug Allergy Activ e semaglutide Semaglutide Unknown Drug Allergy Act aung REASON FOR VISIT f/u rx Medications Medication SIG (Take, Route, Frequency, Duration) Notes Start Date End Date Status Lisinopril-hydroCHLOROthiazi d e 20-12.5 MG Oral for 90 Days Active Ondansetron 4 MG Oral for 6 Days Active Xarelto 20 MG TAKE 1 TABLET BY AFSHAN TH EVERY DAY WITH EVENING MEAL Oral for 90 Days Active tiZANidine HCl 2 MG Oral for 20 Days Active Simvastatin 20 MG TAKE 1 TABLET BY AFSHAN TH EVERYDAY AT BEDTIME Oral for 90 Days Active buPROPion HCl ER (SR) 150 MG Oral for 68 Days Active traZODone HCl 50 MG 1 tablet at bedtime Orally Once a day for 90 days 07/28/2024 Active Cyclobenzaprine HCl 10 MG TAKE 1 TABLET BY MOUTH EVERY DAY AT NIGHT NEEDED FOR MUSCLE SPASM Oral for 30 Days Active Prochlorperazine Maleate 5 MG TAKE 1 TAB LET BY MOUTH EVERY 8 HOURS NEEDED FOR NAUSEA AND VOMITING Oral for 7 Days Active hydrOXYzine HCl 25 MG Oral for 90 Days Active Pantoprazole [...] education: professional schools/Masters/PhD 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 [employer] [address] [address] 07/28/2024 Kenzie Garnett MDD (major depressive disorder), recurrent episode, mild F33.0 ; ADRIAN (generalized anxiety disorder) F41.1 ; History of recent change in lifestyle Z78.9 and Insomnia related to another mental disorder F51.05 Assessments Encounter Date Diagnosis (ICD Code) Assessment Notes Treatment Notes Treatment Clinical Notes Section Notes 07/28/2024 MDD (major depressive disorder), recurrent episode, [...] refills of 90 Vistaril left reported 1. senior living - adjustment surgery 04/16 pain management discuss [...] 50 mg at bedtime educated on rx http_s://www.[employer].SendGrid/cannabi l-xpm-rmmbfonx-mar ijuana-adhd/ http_s://www.nava. org/Zwccm-Dneqrf-A llness/Mental-Heal th-Conditions http_s://psychcent iWantoo.com/depression /ypc-pndthngse-rvv fuuam-hk-ebmaiauws n#treatments http__s://www.nimh .nih.gov/health/to pics/mental-health -medications http__s://www.nava .org/About-Mental- Illness/Treatments /Hguijo-Kbtxtg-Lud ications educated on all medications, benefits, side [...] refills of 90 Vistaril left reported 1. senior living - adjustment surgery 04/16 pain management discuss [...] 50 mg at bedtime educated on rx http_s://www.[employer].com/cannabi u-klu-xxedmnpx-mar ijuana-adhd/ http_s://www.nava. org/Qmbuq-Jzccng-W llness/Mental-Heal th-Conditions http_s://psychcent iWantoo.com/depression /pxi-zwqmlxmmi-ywt fcpio-kz-utpsnpwum n#treatments http__s://www.nimh .nih.gov/health/to pics/mental-health -medications http__s://www.nava .org/About-Mental- Illness/Treatments /Ynlpoo-Furqah-Wuf ications educated on all medications, benefits, side [...] refills of 90 Vistaril left reported 1. senior living - adjustment surgery 04/16 pain management discuss [...] 50 mg at bedtime educated on rx http_s://www.[employer].com/cannabi y-she-lhpeashr-mar ijuana-adhd/ http_s://www.nava. org/Tbkrq-Ginbwr-Y llness/Mental-Heal th-Conditions http_s://psych7 [employer].com/depression /ubi-mkhsevrhc-xue bwggr-jv-ywmeazedw n#treatments http__s://www.nimh .nih.gov/health/to pics/mental-health -medications http__s://www.nava .org/About-Mental- Illness/Treatments /Qewwty-Wsijyr-Met ications educated on all medications, benefits, side [...] refills of 90 Vistaril left reported 1. senior living - adjustment surgery 04/16 pain management discuss [...] 50 mg at bedtime educated on rx http_s://www.[employer].com/cannabi m-eyu-laxmlmwl-mar ijuana-adhd/ http_s://www.nava. org/Ztywa-Uztkks-V llness/Mental-Heal th-Conditions http_s://psych7 [employer].com/depression /aik-jkirffnsi-osf lqlay-dx-pvskeuvlk n#treatments http__s://www.nimh .nih.gov/health/to pics/mental-health -medications http__s://www.nava .org/About-Mental- Illness/Treatments /Axeqgh-Jdupos-Yyn ications educated on all medications, benefits, side [...] interactions with prescribed medications. Plan Of Treatment Medication Medication Name Sig Start Date Stop Date Notes traZODone HCl 50 MG 1 tablet at bedtime Orally Once a day for 90 days 07/28/2024 Treatment Notes Assessment Notes MDD (major depressive [...] was published Next Appt Details Follow Up: 6 Weeks, Reason: f/u Trazodone Provider Name:Kenzie Garnett , 10/20/2024 08:45:00 AM, [address], [facility] [address], [place], [address], Progress Notes * Marc LÓPEZ LDOB:1965 (58 yo M)Acc No.[id number]:07/28/2024 Patient: Mery JAVINick KEENEdeana Dee Provider: Mina GARNETT PMHNP :1965 A ge:58 Y S ex:Male Date:07/28/2024 [facility] Pcp:Daniel Bradley DO Subjective: * Chief Complaints: * 1 . F/u rx. * HPI: D epression Screening: ADRIAN-7 (2018 Edition) F eeling nervous, anxious, or on edge?Several days, N ot being able to stop or control worrying S everal days, W orrying too much about different things S everal days, T rouble relaxing S everal days, B eing so restless that it is hard to sit still S everal days, B ecoming easily annoyed or irritable N ot at all, F eeling afraid as if something awful might happen N ot at all, T otal ADRIAN-7 Score 5 , I f you checked any problems, how difficult have they made it for you to do your work, take care of things at home, or get along with other people? N ot difficult at all, I nterpretation of Total ( 5 to 9) Mild. Follow up depresison, anxiety chronic since last visit reported I been doing ok I have problems sleeping every week I have 2-3 days not able to fall asleep and brain races and hard ot stay in bed I am up and I trued reading, and recliner, calm self, and Melatonin, relaxation sleep, nothing has helped, and I have not slept well last 3 nights, average 5 hours each night, I have napped 30-45 minutes, I feel so anxious and not have bad dreams and I do not have CPAP, no sleep study, and I could not wear one if needed one, and I am anxious about, thinking about normal things what will go on in day, and feel like beat self up past mistakes, and interactions with others went down a lot with senior living and back issues limit my physical activity, back surgery 03/16 and balance still off and no feeling in legs below knee, and triggers depression and anxiety, appetite much better, I gained all weight back, GI issues resolved, medications no s/e. I am sad, down, I feel alone and family al gone and I lost friend last and I lost 2 best friends mothers last Wednesday and I get down around holidays and down I can notdo things I like to do like yard, and Wednesday went to [employer] and hard to walk on uneven ground and depend on cane, all the limitations, at time a nxious and fidgety, when I do fall asleep I am good until 2-3 am and bathroom, concentration and focus not have issues and motivation and interest have it just limited limitations and I just feel need something help anxieyt and sleep, n o psychosis no arun, no SI/HI, no refill needed today, no panic attacks, retired 02/14 and adjustment and miss interactions with colleges and students denies SI/HI no plans or intent no past attempts, no thoughts harm to self or others, no self cutting or harm, no psychiatric hospital, FH cousin suicide, no weapons in home, ETOH- occasional smoking- denies labs- recently drugs- denies family , HX RX- Wellbutrin, Vistaril, Sertraline (nausea), Prozac (nausea), uses cane 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 D epression screening: Intervention D epression Screening Findings P ositve,?Follow-Up for Depression M ental health treatment assessment, Patient follow-up to return when and if necessary, S uicide Risk Assessment Performed , A dditional Evaluation for Depression P sychiatric interview and evaluation, N jaylan of the standardized tool used for adult depression screening: [facility] (PHQ-9). * ROS: r eports n o shortness [...] back 04/16, and no paralysis. r eports sleep disturbances and restless sleep, and no memory loss reported depression, no alcohol abuse, reported anxiety, no hallucinations, no suicidal thoughts, no mood swings, no agitation, r eports f atigue. reports no fever, no significant weight gain, and no significant weight loss ?no diarrhea no nausea r eports wears glasses reports no incontinence, no difficulty urinating, and no increased frequency.- r eports no [...] deficiency: Yes, vitamin D deficiency: No. * Social History: T obacco Use: T obacco Control (Standard) T obacco use: N onsmoker, A dditional Findings: Tobacco non-user C urrent nonsmoker. 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 [employer], A mi household tobacco use? N o, A mi household pets? N o. M iscellaneous: O ccupation: Retired. Safety issues A re there any firearms in the house? N o. S ocial History: H ousedisha M arital Status: S nubia, N umber of Adults in household: 1 , N umber of Children in Household: 0 , L evel of Education: P [employer] Schools/Masters/PhD. * Medications: T aking Xarelto 20 MG [...] ood. Attention: g ood. Attitude: c ooperative. Gait c ane and unsteady- back issues/surgery. Homicidal ideation: n one. Suicidal ideation: n [...] of recent change in lifestyle - Z78.9 4 . I nsomnia related to another mental disorder - F51.05? no refill needed today has 9 0 day Welbutrin and 2 refills of 90 Vistaril left reported 1. senior living - adjustment surgery 04/16 pain management discuss [...] 50 mg at bedtime educated on rx http_s://www.[employer].SendGrid/wqvyhnch-nmh-yqrnidcn-marijuana-adhd/ http_s://www.nava.org/Ukolc-Exgozr-Levuevc/Yzrgpi-Hqmlot-Ahsrkdgtwa http_s://psychcentral.com/depression/aol-inzjqjzwl-khmhunkb-of-depression#treatm ents http__s://www.nimh.nih.gov/health/topics/sqmypf-djayvb-kfqoeijpyhn http__s://www.nava.org/Dzczb-Hgtkbf-Sfrbtyf/Treatments/Lqtrfo-Snyrnt-Jdhzeqzhupe educated on all medications, benefits, side effects [...] Learning About Anxiety Disorders material was published 3. I nsomnia related to another mental disorder Start traZODone HCl Tablet, 50 MG, 1 tablet at bedtime, Orally, Once a day, 90 days, 90 Tablet, Refills 0. * Procedure Codes: 9 6127 BEHAV ASSMT W/SCORE & DOCD/STAND INSTRUMENT, G2211 VISIT COMPLEXITY INHERENT TO ONGOING CARE RELATED TO A PATIENT'S SINGLE, SERIOUS CONDITION OR A COMPLEX CONDITION, G8431 CLIN DEPRESSION SCREEN DOC * Follow Up: 6 Weeks (Reason: f/u Trazodone) * Billing Information: * Visit Code: 17125 OFFICE OUTPATIENT VISIT 25 MINUTES DETAILED HISTORY AND EXAM/MODERATE MEDICAL DECISION MAKING. * Procedure Codes: 56051 BEHAV ASSMT W/SCORE & DOCD/STAND INSTRUMENT. G2211 VISIT COMPLEXITY INHERENT TO ONGOING CARE RELATED TO A PATIENT'S SINGLE, SERIOUS CONDITION OR A COMPLEX CONDITION. G8431 CLIN DEPRESSION SCREEN DOC. * DLE FRAME CARVER Sign off status: Completed true * Provider: NILO STONE Date: 0 07/28/2024 Generated for Tomas foreman/Sury/Antonieta on: 0 08/07/2024 09:53 AM CDT History and Physical Notes * HPI (History of Present Illness) Category Sub-Category Detail Notes Category Not es Depression screening Intervention Depression Screening Findings: Positve Follow-Up for Depression: [facility] health treatment assessment, Patient follow-up to return when and if necessary Suicide Risk Assessment Performed: Additional Evaluation for Depression: Ps ychiatric interview and evaluation Name of the standardized too l used for adult depression screening:: Patient Health Questionnaire (PHQ-9) Depression Screening ADRIAN-7 (2018 Edition) Feeling nervous, anxious, or on edge: Several days Follow up depresison, anxiety chronic since last visit reported I been doing ok I have problems sleeping every week I have 2-3 days not able to fall asleep and brain races and hard ot stay in bed I am up and I trued reading, and recliner, calm self, and Melatonin, relaxation sleep, nothing has helped, and I have not slept well last 3 nights, average 5 hours each night, I have napped 30-45 minutes, I feel so anxious and not have bad dreams and I do not have CPAP, no sleep study, and I could not wear one if needed one, and I am anxious about, thinking about normal things what will go on in day, and feel like beat self up past mistakes, and interactions with others went down a lot with senior living and back issues limit my physical activity, back surgery 03/16 and balance still off and no feeling in legs below knee, and triggers depression and anxiety, appetite much better, I gained all weight back, GI issues resolved, medications no s/e. I am sad, down, I feel alone and family al gone and I lost friend last and I lost 2 best friends mothers last Wednesday and I get down around holidays and down I can notdo things I like to do like yard, and Wednesday went to [employer] and hard to walk on uneven ground and depend on cane, all the limitations, at time anxious and fidgety, when I do fall asleep I am good until 2-3 am and bathroom, concentration and focus not have issues and motivation and interest have it just limited limitations and I just feel need something help anxieyt and sleep, no psychosis no arun, no SI/HI, no refill needed today, no panic attacks, retired 02/14 and adjustment and miss interactions with colleges and students denies SI/HI no plans or intent no past attempts, no thoughts harm to self or others, no self cutting or harm, no psychiatric hospital, FH cousin suicide, no weapons in home, ETOH- occasional smoking- denies labs- recently drugs- denies family , HX RX- Wellbutrin, Vistaril, Sertraline (nausea), Prozac (nausea), uses cane 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, [employer]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, 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, 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 all family micro diskectomy 03/09/24 still have lower legs and feet numb upper and lower colonoscopy 2023 Not being able to stop or control worryi ng: Several days Worrying too much about different things : Several days Trouble relaxing: Several days Being so restless that it is hard to sit still: Several days Becoming easily annoyed or irritable: No t at all Feeling afraid as if something awful fabio ht happen: Not at all Total ADRIAN-7 Score: 5 If you checked any problems, how difficult have they made it for you to do your work, take care of things at home, or get along with other people?: Not difficult at all Interpretation of Total: (5 to 9) Mild Examination Category Sub-Category Detail Notes Category Not [...] no Comprehension - Intellectual function: a verage Gait cane and unsteady- b ack issues/surgery
--- OUTSIDE RECORDS SUMMARY | 2024-08-07 09:53 | XMS_ITS | Clinical Summary ---
Author Organization [facility] Address [address] [place] [phone] Care Team Providers Care Decorating Instructor Name Role Phone Unavailable Primary Care Provider Unavailabl e Social History Tobacco Use Types Packs/Day Years Used Date Smoking Tobacco: Never Assessed Sex and Gender Information Value Date Recorded Sex Assigned at Not on file Legal Sex Male 9:38 AM CDT Gender Identity Not on file Sexual Orientation Not on file Plan of Treatment Health Maintenance Due Date Last Done Comments Hepatitis C Virus (HCV) Screening 1965 TdaP Immunization 1965 Colonoscopy 08/30/2008 Colorectal Cancer Screening 08/30/2008 Cologuard 08/30/2013 Immunochemical Fecal Occult Blood 08/30/2013 Pneumococcal Immunization (5 0+ years) (1 of 1 - PCV) 08/30/2013 Zoster Immunization (1 of 2) 08/30/2013 PSA Discussion 08/30/2018 Influenza Immunization (#1) 2024 SARS-COV-2 Immunization ( - 2023-25 season) 2024 Respiratory Syncytial Virus (RSV) Immunization (Adult) (1 - 1-dose 75+ series) 08/30/2038 Hepatitis B Immunization Aged Out No longer eligible based on patient's age to complete this topic Meningococcal Immunization (ACWY) Aged Out No longer eligible based on patient's age to complete this topic Pneumococcal Immunization Combined Aged Out No longer eligible based on patient's age to complete this topic Rotavirus Immunization Aged Out No lo nger eligible based on patient's age to complete this topic Insurance [facility]
== END 2024-08-07 09:09 | disposition home or self-care (01) ==
PROVIDERS: PCP Internal Medicine; Visit Provider Nurse Practitioner Family
DX: K74.60 Unspecified cirrhosis of liver (principal); K76.0 Fatty (change of) liver, not elsewhere classified
CPT/HCPCS: 76705

== ENCOUNTER 2025-01-17 07:37 | Outpatient (CLI) | payer OTHER, SELFPAY ==
--- OUTSIDE RECORDS SUMMARY | 2025-01-17 07:41 | XMS_ITS | Clinical Summary ---
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 Name Role Phone Unavailable Primary Care Provider [...] Virus (HCV) Screening 1965 TdaP Immunization 1965 Cologuard 08/30/2008 Colonoscopy 08/30/2008 Colorectal Cancer Screening 08/30/2008 Immunochemical Fecal Occult Blood 08/30/2008 Pneumococcal Immunization (5 0+ years) (1 of 1 - PCV) 08/30/2013 Zoster Immunization (1 of 2) 08/30/2013 SARS-COV-2 Immunization (1 - season) 2024 Influenza Immunization (#1) 2025 Respiratory Syncytial Virus (RSV) Immunization (Adult) (1 - 1-dose 75+ series) 08/30/2038 Hepatitis B Immunization Aged Out No longer eligible based on patient's age to complete this topic Human Papillomavirus (HPV) Immunization Aged Out No longer eligible b ased on patient's age to complete this topic Meningococcal Immunization (ACWY) Aged Out No longer eligible based on patient's age to complete this topic Rotavirus Immunization Aged Out No lo nger eligible based on patient's age to complete this topic Insurance [employer] [facility]
--- OUTSIDE RECORDS SUMMARY | 2025-01-17 07:41 | XMS_ITS | Patient Health Record ---
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 Role Phone Karthikmichi STALEY Daniel Primary Care Provider Kenzie Lundberg Unavailable [phone] Destiney Almazan APN Unavailable Unavailable Allergies Allergen [...] Oxazepam (BZO) n 0 - 300 ng/ml 4-rndzvfievu-7,0-xwyvuegx-8,3-diphenylpyrrolidine (RAMA P) n 0 - 300 ng/ml Methamphetamine (MET) n 0 - 1000 ng/ml Methylenedioxymethamphetamine (MDMA) n 0 - 500 ng/ml Morphine (MOP 300/VUA8484) n 0 - 300 ng/ml Methadone (MTD) n 0 - 300 ng/ml Phencyclidine (PCP) n 0 - 25 ng/ml Nortriptyline (TCA) n 0 - 1000 ng/ml Oxycodone n 0 - 300 ng/ml x n 0 - 300 ng/ml Reason For Referral No Information Medications Medication SIG (Take, Route, Frequency, Duration) Notes Start Date End Date Status Ondansetron 4 MG Tablet Disintegrating Oral; Duration: 6 Days Act aung Simvastatin 20 MG Tablet TAKE 1 TABLET B Y MOUTH EVERYDAY AT BEDTIME Oral; Duration: 90 Days Active Lisinopril-hydroCHLOROthiaz ovi 20-12.5 MG Tablet Oral; Duration: 90 Days Active Mounjaro 7.5 MG/0.5ML Solution Auto-injector INJECT 7.5 MG (0.5 ML) SUBCUTANEOUSLY WEEKLY START AFTER COMPLETING 5MG INJECTIONS Subcutaneous; Duration: 28 Days Active Xarelto 20 MG Tablet TAKE 1 TABLET BY MO UT EVERY DAY WITH EVENING MEAL Oral; Duration: 90 Days Active tiZANidine HCl 2 MG Tablet Oral; Duration: 20 Days Active Vitamin B-12 1000 MCG Tablet TAKE 1 TABLET BY MOUTH EVERY MORNING Oral; Duration: 30 Days Active traZODone HCl 50 MG Tablet 1 tablet at b edtime Orally Once a day; Duration: 90 days Active Pantoprazole Sodium 40 MG Tablet Delayed Release TAKE 1 TABLET BY MOUTH EVERY 12 HOURS Oral; Duration: 30 Days Active DULoxetine HCl 30 MG Capsule Delayed Release Particles 1 capsule Orally Once a day; Duration: 7 days 10/20/2024 Active buPROPion HCl ER (SR) 150 MG Tablet Extended Release 12 Hour Oral; Duration: 68 Days Acti ve DULoxetine HCl 60 MG Capsule Delayed Release Particles 1 capsule Oral Once a day; Duration: 90 days Active metFORMIN HCl 1000 MG Tablet Oral; Duration: 90 Days Acti ve DULoxetine HCl 60 MG Capsule Delayed Release Particles 1 capsule at bedtime Oral Once a day; Duration: 30 days Active hydrOXYzine HCl 25 MG Tablet Oral; Duration: 90 Days Acti ve Prochlorperazine Maleate 5 MG Tablet TAKE 1 TABLET BY MOUTH EVERY 8 HOURS NEEDED FOR NAUSEA AND VOMITING Oral; Duration: 7 Days Active Cyclobenzaprine HCl 10 MG Tablet TAKE 1 TABLET BY MOUTH EVERY DAY AT NIGHT NEEDED FOR MUSCLE SPASM Oral; Duration: 30 Days Active Social History Tobacco Use: Social History Observation Description Date Details (start date - stop date) Never Smoker NA - NA Sex Assigned At : Social History Observation Description Sex Assigned At Male Social History Miscellaneous: Social Info Question Answer Notes Safety issues: Are there any firearms in the house? 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 [employer] Any household tobacco use? No Any household pets? No Drug/Alcohol: Social Info Question Answer Notes Drugs Have you used drugs other than those for medical reasons in the past 12 months? No AUDIT-C (Standard) Did you have a drink containing alcohol in the past year? Yes How often did you have six or more drinks on one occasion in the past year? Less than monthly (1 point) How many drinks did you have on a typical day when you were drinking in the past year? 1 or 2 drinks (0 point) How often did you have a drink containing alcohol in the past year? Monthly or less (1 point) Points 2 Interpretation Negative Tobacco Use: Social Info Question Answer Notes Tobacco Control (Standard) Tobacco use: Nonsmoker Additional Findings: Tobacco non-user Current no nsmoker Additional Details Category Social Info Options Details Miscellaneous: Occupation: Retired Drug/Alcohol: Do you smoke marijuana? Den ies Do you drink alcohol? 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) Insomnia related to another mental disorder (F51.05) Active confirmed Problem History of recent change in lifestyle (Z78.9) Active confirmed Vital Signs Heart Rate 111 /min 11/20/2024 Respiratory Rate 18 /min 11/20/2024 Height-cm 190.5 cm 11/20/2024 Blood pressure diastolic 85 mm Hg 11/20/2024 Weight-kg 162.39 kg 11/20/2024 Height 75 in 11/20/2024 Blood pressure systolic 144 mm Hg 11/20/2024 Weight 358.0 lbs 11/20/2024 BMI 44.74 kg/m2 11/20/2024 Encounters Encounter [facility] Date [email or web address] [address] [place] [id number] 02/22/2024 Kenzie Therpetros MDD (major depressiv e disorder), recurrent episode, mild F33.0 ; ADRIAN (generalized anxiety disorder) F41.1 and History of recent change in lifestyle Z78.[address] [address] 05/01/2024 Kenzie Thery MDD (major depressiv e disorder), recurrent episode, mild F33.0 ; ADRIAN (generalized anxiety disorder) F41.1 and History of recent change in lifestyle Z78.9 [email or web address] [address] [address] 07/28/2024 Kenzie Therpetros MDD (major depressiv e disorder), recurrent episode, mild F33.0 ; ADRIAN (generalized anxiety disorder) F41.1 ; History of recent change in lifestyle Z78.9 and Insomnia related to another mental disorder F51.05 [email or web address] [address] [address] 10/20/2024 Kenzie Therpetros Encounter for screen ing for depression Z13.31 ; MDD (major depressive disorder), recurrent episode, mild F33.0 ; ADRIAN (generalized anxiety disorder) F41.1 ; History of recent change in lifestyle Z78.9 ; Insomnia related to another mental disorder F51.05 and Encounter for screening for cardiovascular disorders Z13.6 [facility] [employer] [address] [address] 11/20/2024 Kenzie Thery Encounter for screen ing for depression Z13.31 ; MDD (major depressive disorder), recurrent episode, mild F33.0 ; Encounter for screening for cardiovascular disorders Z13.6 ; Dietary counseling and surveillance Z71.3 ; ADRIAN (generalized anxiety disorder) F41.1 ; [...] material was published no refill needed today mcc today- adjustment surgery planned 03/16 discuss therapy HAMILTON - will consider if need in near future major depression- Wellbutrin SR 150 mg twice a day- patient reported been helping Anxiety- Vistaril 25 mg twice a day- patient reported been helping http_s://www.[employer]/boobrittaney zei-pfw-eycvleec- marijuana-adhd/ http_s://www.nava .org/About-Mental -Illness/Mental-H ealth-Conditions http_s://psychcen SalezeolMaple Farm Mediacom/depressi on/the-cognitive- smxpcxnp-mn-fqvew ssion#treatments http__s://www.nim .nih.gov/health/ topics/mental-hea lth-medications http__s://www.nam i.org/About-Menta l-Illness/Treatme nts/Mental-Health -Medications educated on all medications, benefits, side effects [...] effects including loss of libido, increased suicidal thoughts/behavior s in children and young adults, and serotonin [...] material was published no refill needed today mcc today- adjustment surgery planned 03/16 discuss therapy HAMILTON - will consider if need in near future major depression- Wellbutrin SR 150 mg twice a day- patient reported been helping Anxiety- Vistaril 25 mg twice a day- patient reported been helping http_s://www.[employer]/canna mvu-ayr-htbosxbg- marijuana-adhd/ http_s://www.nava .org/About-Mental -Illness/Mental-H ealth-Conditions http_s://Kut[employer]/depressi on/the-cognitive- bijlpbyy-er-azkbx ssion#treatments http__s://www.nim .nih.gov/health/ topics/mental-hea lth-medications http__s://www.nam i.org/About-Menta l-Illness/Treatme nts/Mental-Health -Medications educated on all medications, benefits, side effects [...] effects including loss of libido, increased suicidal thoughts/behavior s in children and young adults, and serotonin [...] 2 refills of 90 Vistaril left reported mcc today- adjustment surgery planned 03/16 discuss therapy HAMILTON - will consider if need in near future major depression- Wellbutrin SR 150 mg twice a day- patient reported been helping Anxiety- Vistaril 25 mg twice a day- patient reported been helping http_s://www.[employer]/Napo Pharmaceuticalsbrittaney dvf-tti-msjlgwrq- marijuana-adhd/ http_s://www.nava .org/About-Mental -Illness/Mental-H ealth-Conditions http_s://psychIDX Corp/depressi on/the-cognitive- cnkabqpg-im-sbdgc ssion#treatments http__s://www.nim h.nih.gov/health/ topics/mental-hea [facility]-medications http__s://www.nam i.org/About-Menta l-Illness/Treatme nts/Mental-Health -Medications educated on all medications, benefits, side effects [...] effects including loss of libido, increased suicidal thoughts/behavior s in children and young adults, and serotonin [...] refills of 90 Vistaril left reported 1. mcc - adjustment surgery 04/16 pain management discuss [...] 50 mg at bedtime educated on rx http_s://www.[employer]/canna vcs-udw-zbxowiet- marijuana-adhd/ http_s://www.nava .org/About-Mental -Illness/Mental-H ealth-Conditions http_s://psychceBkam.[employer] Software/depressi on/the-cognitive- rnufiilb-bo-wyind ssion#treatments http__s://www.nim h.nih.gov/health/ topics/mental-hea lth-medications http__s://www.nam i.org/About-Menta l-Illness/Treatme nts/Mental-Health -Medications educated on all medications, benefits, side effects [...] effects including loss of libido, increased suicidal thoughts/behavior s in children and young adults, and serotonin [...] refills of 90 Vistaril left reported 1. mcc - adjustment surgery 04/16 pain management discuss [...] 50 mg at bedtime educated on rx http_s://www.eliThe Spirit Project.[employer] Software/booa sag-dej-egeevmhr- marijuana-adhd/ http_s://www.nava .org/About-Mental -Illness/Mental-H ealth-Conditions http_s://psychcen tral.com/depressi on/the-cognitive- qshjkqzy-il-dnsnv ssion#treatments http__s://www.[facility].gov/health/ topics/mental-hea [facility]-medications http__s://www.nam i.org/About-Menta l-Illness/Treatme nts/Mental-Health -Medications educated on all medications, benefits, side effects [...] effects including loss of libido, increased suicidal thoughts/behavior s in children and young adults, and serotonin syndrome. Medication Management and Follow-Up - Plan: - Schedule follow-up appointments every 1-3 months to monitor the patient's response to the medication regimen. - Reinforce the importance of avoiding recreational drug use due to potential neurotoxicity and interactions with prescribed medications. 10/20/2024 Encounter for screening for depression (ICD-10 - Z13.31) 1. mcc - adjustment surgery 04/16 pain management discuss therapy HAMILTON - will consider if need in near future, not interested at this time. 2. major depression- Wellbutrin SR 150 mg twice a day- PCP fills Start Duloxetine 30mg x1 week, then increase to 60mg daily in the morning 3. Anxiety- Vistaril 25 mg twice a day- PCP fills patient reported having anxiety mainly at night 4. Insomnia related to anxiety Trazodone 50 mg at bedtime- helping sleep educated on rx http_s://www.nava .org/About-Mental -Illness/Mental-H ealth-Conditions http_s://psychcen tral.com/depressi on/the-cognitive- dovjyrrq-yj-nsyvt ssion#treatments http__s://www.nim h.nih.gov/health/ topics/mental-hea [facility]-medications http__s://www.nam i.org/About-Menta l-Illness/Treatme nts/Mental-Health -Medications educated on all medications, benefits, side effects [...] effects including loss of libido, increased suicidal thoughts/behavior s in children and young adults, and serotonin syndrome. Medication Management and Follow-Up - Plan: - Schedule follow-up appointments every 1-3 months to monitor the patient's response to the medication regimen. - Reinforce the importance of avoiding recreational drug use due to potential neurotoxicity and interactions with prescribed medications. 10/20/2024 MDD (major depressive disorder), recurrent episode, mild (ICD-10 - F33.0) Preventing Depression From Coming Back: Care Instructions material was published, Learning About Depression material was published, Learning About Depression Screening material was published, Learning About How to Get Help During a Mental Health Crisis material was published, Seasonal Affective Disorder: Care Instructions material was published, Preventing Depression From Coming Back: Care Instructions material was published, Learning About How to Get Help During a Mental Health Crisis material was published, Learning About Depression Screening material was published, Learning About Depression material was published 1. mcc - adjustment surgery 04/16 pain management discuss therapy HAMILTON - will consider if need in near future, not interested at this time. 2. major depression- Wellbutrin SR 150 mg twice a day- PCP fills Start Duloxetine 30mg x1 week, then increase to 60mg daily in the morning 3. Anxiety- Vistaril 25 mg twice a day- PCP fills patient reported having anxiety mainly at night 4. Insomnia related to anxiety Trazodone 50 mg at bedtime- helping sleep educated on rx http_s://www.nava .org/About-Mental -Illness/Mental-H ealth-Conditions http_s://psychcen Salezeol.com/depressi on/the-cognitive- iygpzlox-yk-uqktr ssion#treatments http__s://www.[facility].nih.gov/health/ topics/mental-hea lth-medications http__s://www.nam i.org/About-Menta l-Illness/Treatme nts/Mental-Health -Medications educated on all medications, benefits, side effects [...] effects including loss of libido, increased suicidal thoughts/behavior s in children and young adults, and serotonin syndrome. Medication Management and Follow-Up - Plan: - Schedule follow-up appointments every 1-3 months to monitor the patient's response to the medication regimen. - Reinforce the importance of avoiding recreational drug use due to potential neurotoxicity and interactions with prescribed medications. 11/20/2024 Encounter for screening for depression (ICD-10 - Z13.31) 1. mcc - adjustment surgery 04/16 pain management discuss therapy HAMILTON - will consider if need in near future, not interested at this time. 2. major depression- Wellbutrin SR 150 mg twice a day- PCP fills 60mg daily in the morning 3. Anxiety- Vistaril 25 mg twice a day- PCP fills patient reported having anxiety mainly at night 4. Insomnia related to anxiety Trazodone 50 mg at bedtime- helping sleep educated on rx http_s://www.nava .org/About-Mental -Illness/Mental-H ealth-Conditions http_s://psychcen [employer].com/depressi on/the-cognitive- htjhkitn-xr-tjwrx ssion#treatments http__s://www.nim .nih.gov/health/ topics/mental-hea lth-medications http__s://www.nam i.org/About-Menta l-Illness/Treatme nts/Mental-Health -Medications educated on all medications, benefits, side effects [...] effects including loss of libido, increased suicidal thoughts/behavior s in children and young adults, and serotonin syndrome. Medication Management and Follow-Up - Plan: - Schedule follow-up appointments every 1-3 months to monitor the patient's response to the medication regimen. - Reinforce the importance of avoiding recreational drug use due to potential neurotoxicity and interactions with prescribed medications. 11/20/2024 MDD (major depressive disorder), recurrent episode, mild (ICD-10 - F33.0) Preventing Depression From Coming Back: Care Instructions material was published, Learning About Depression material was published, Learning About Depression Screening material was published, Learning About How to Get Help During a Mental Health Crisis material was published, Seasonal Affective Disorder: Care Instructions material was published, Preventing Depression From Coming Back: Care Instructions material was published, Learning About How to Get Help During a Mental Health Crisis material was published, Learning About Depression Screening material was published, Learning About Depression material was published 1. mcc - adjustment surgery 04/16 pain management discuss therapy HAMILTON - will consider if need in near future, not interested at this time. 2. major depression- Wellbutrin SR 150 mg twice a day- PCP fills 60mg daily in the morning 3. Anxiety- Vistaril 25 mg twice a day- PCP fills patient reported having anxiety mainly at night 4. Insomnia related to anxiety Trazodone 50 mg at bedtime- helping sleep educated on rx http_s://www.nava .org/About-Mental -Illness/Mental-H ealth-Conditions http_s://psychcen Salezeol.com/depressi on/the-cognitive- zxygtyfk-vs-fxxic ssion#treatments http__s://www.nim h.nih.gov/health/ topics/mental-hea [facility]-medications http__s://www.nam i.org/About-Menta l-Illness/Treatme nts/Mental-Health -Medications educated on all medications, benefits, side effects [...] effects including loss of libido, increased suicidal thoughts/behavior s in children and young adults, and serotonin syndrome. Medication Management and Follow-Up - Plan: - Schedule follow-up appointments every 1-3 months to monitor the patient's response to the medication regimen. - Reinforce the importance of avoiding recreational drug use due to potential neurotoxicity and interactions with prescribed medications. 11/20/2024 Encounter for screening for cardiovascular disorders (ICD-10 - Z13.6) 1. mcc - adjustment surgery 04/16 pain management discuss therapy HAMILTON - will consider if need in near future, not interested at this time. 2. major depression- Wellbutrin SR 150 mg twice a day- PCP fills 60mg daily in the morning 3. Anxiety- Vistaril 25 mg twice a day- PCP fills patient reported having anxiety mainly at night 4. Insomnia related to anxiety Trazodone 50 mg at bedtime- helping sleep educated on rx http_s://www.nava .org/About-Mental -Illness/Mental-H ealth-Conditions http_s://Kut[employer]/depressi on/the-cognitive- wvafsdmg-it-txqzu ssion#treatments http__s://www.nim h.nih.gov/health/ topics/mental-hea lth-medications http__s://www.nam i.org/About-Menta l-Illness/Treatme nts/Mental-Health -Medications educated on all medications, benefits, side effects [...] effects including loss of libido, increased suicidal thoughts/behavior s in children and young adults, and serotonin syndrome. Medication Management and Follow-Up - Plan: - Schedule follow-up appointments every 1-3 months to monitor the patient's response to the medication regimen. - Reinforce the importance of avoiding recreational drug use due to potential neurotoxicity and interactions with prescribed medications. 10/20/2024 ADRIAN (generalized anxiety disorder) (ICD-10 - F41.1) Generalized Anxiety Disorder: Care Instructions material was published, Learning About Generalized Anxiety Disorder material was published, Learning About Anxiety Disorders material was published, Learning About Generalized Anxiety Disorder material was published, Generalized Anxiety Disorder: Care Instructions material was published, Learning About Anxiety Disorders material was published 1. mcc - adjustment surgery 04/16 pain management discuss therapy HAMILTON - will consider if need in near future, not interested at this time. 2. major depression- Wellbutrin SR 150 mg twice a day- PCP fills Start Duloxetine 30mg x1 week, then increase to 60mg daily in the morning 3. Anxiety- Vistaril 25 mg twice a day- PCP fills patient reported having anxiety mainly at night 4. Insomnia related to anxiety Trazodone 50 mg at bedtime- helping sleep educated on rx http_s://www.nava .org/About-Mental -Illness/Mental-H ealth-Conditions http_s://psychcen Salezeol.com/depressi on/the-cognitive- qjwvvrwu-ko-lpqnl ssion#treatments http__s://www.nim h.nih.gov/health/ topics/mental-hea lth-medications http__s://www.nam i.org/About-Menta l-Illness/Treatme nts/Mental-Health -Medications educated on all medications, benefits, side effects [...] effects including loss of libido, increased suicidal thoughts/behavior s in children and young adults, and serotonin [...] refills of 90 Vistaril left reported 1. mcc - adjustment surgery 04/16 pain management discuss [...] 50 mg at bedtime educated on rx http_s://www.eli Wiscomm MicrosystemsdeNanalysis.CDC Software/booa sci-oze-qsehdwed- marijuana-adhd/ http_s://www.nava .org/About-Mental -Illness/Mental-H ealth-Conditions http_s://psychcen Salezeol.com/depressi on/the-cognitive- sqxzybcj-tr-umzbb ssion#treatments http__s://www.nim h.nih.gov/health/ topics/mental-hea lth-medications http__s://www.nam i.org/About-Menta l-Illness/Treatme nts/Mental-Health -Medications educated on all medications, benefits, side effects [...] effects including loss of libido, increased suicidal thoughts/behavior s in children and young adults, and serotonin syndrome. Medication Management and Follow-Up - Plan: - Schedule follow-up appointments every 1-3 months to monitor the patient's response to the medication regimen. - Reinforce the importance of avoiding recreational drug use due to potential neurotoxicity and interactions with prescribed medications. 02/22/2024 History of recent change in lifestyle (ICD-10 - Z78.9) no refill needed today mcc today- adjustment surgery planned 03/16 discuss therapy HAMILTON - will consider if need in near future major depression- Wellbutrin SR 150 mg twice a day- patient reported been helping Anxiety- Vistaril 25 mg twice a day- patient reported been helping http_s://www.[employer] Software/canna zft-isv-nzekmctz- marijuana-adhd/ http_s://www.nava .org/About-Mental -Illness/Mental-H ealth-Conditions http_s://psychcen tral.com/depressi on/the-cognitive- koncrjds-cg-ciftj ssion#treatments http__s://www.nim h.nih.gov/health/ topics/mental-hea lt-medications http__s://www.nam i.org/About-Menta l-Illness/Treatme nts/Mental-Health -Medications educated on all medications, benefits, side effects [...] effects including loss of libido, increased suicidal thoughts/behavior s in children and young adults, and serotonin [...] 2 refills of 90 Vistaril left reported mcc today- adjustment surgery planned 03/16 discuss therapy HAMILTON - will consider if need in near future major depression- Wellbutrin SR 150 mg twice a day- patient reported been helping Anxiety- Vistaril 25 mg twice a day- patient reported been helping http_s://www.[employer]/jyotsna vil-qob-idfmgbdt- marijuana-adhd/ http_s://www.nava .org/About-Mental -Illness/Mental-H ealth-Conditions http_s://psychcen tral.com/depressi on/the-cognitive- mikbknco-sn-cuyjt ssion#treatments http__s://www.nim h.nih.gov/health/ topics/mental-hea [facility]-medications http__s://www.nam i.org/About-Menta l-Illness/Treatme nts/Mental-Health -Medications educated on all medications, benefits, side effects [...] effects including loss of libido, increased suicidal thoughts/behavior s in children and young adults, and serotonin [...] refills of 90 Vistaril left reported 1. mcc - adjustment surgery 04/16 pain management discuss [...] 50 mg at bedtime educated on rx http_s://www.[employer]/boobrittaney uyb-chl-ynclvpcp- marijuana-adhd/ http_s://www.nava .org/About-Mental -Illness/Mental-H ealth-Conditions http_s://psychcen [employer].com/depressi on/the-cognitive- hmxglmac-kj-yhxyi ssion#treatments http__s://www.[facility].nih.gov/health/ topics/mental-hea lt-medications http__s://www.nam i.org/About-Menta l-Illness/Treatme nts/Mental-Health -Medications educated on all medications, benefits, side effects [...] effects including loss of libido, increased suicidal thoughts/behavior s in children and young adults, and serotonin [...] 2 refills of 90 Vistaril left reported mcc today- adjustment surgery planned 03/16 discuss therapy HAMILTON - will consider if need in near future major depression- Wellbutrin SR 150 mg twice a day- patient reported been helping Anxiety- Vistaril 25 mg twice a day- patient reported been helping http_s://www.[employer]/canna hhm-dzm-bthumhnl- marijuana-adhd/ http_s://www.nava .org/About-Mental -Illness/Mental-H ealth-Conditions http_s://psychOpenAgent.com.au.com/depressi on/the-cognitive- vgfntnjq-gu-mnzep ssion#treatments http__s://www.nim .nih.gov/health/ topics/mental-hea lt-medications http__s://www.nam i.org/About-Menta l-Illness/Treatme nts/Mental-Health -Medications educated on all medications, benefits, side effects [...] effects including loss of libido, increased suicidal thoughts/behavior s in children and young adults, and serotonin syndrome. Medication Management and Follow-Up - Plan: - Schedule follow-up appointments every 1-3 months to monitor the patient's response to the medication regimen. - Reinforce the importance of avoiding recreational drug use due to potential neurotoxicity and interactions with prescribed medications. 11/20/2024 Dietary counseling and surveillance (ICD-10 - Z71.3) 1. mcc - adjustment surgery 04/16 pain management discuss therapy HAMILTON - will consider if need in near future, not interested at this time. 2. major depression- Wellbutrin SR 150 mg twice a day- PCP fills 60mg daily in the morning 3. Anxiety- Vistaril 25 mg twice a day- PCP fills patient reported having anxiety mainly at night 4. Insomnia related to anxiety Trazodone 50 mg at bedtime- helping sleep educated on rx http_s://www.nava .org/About-Mental -Illness/Mental-H ealth-Conditions http_s://psychcen tral.com/depressi on/the-cognitive- xmbyjhbf-dz-wsdsw ssion#treatments http__s://www.nim .nih.gov/health/ topics/mental-hea lth-medications http__s://www.nam i.org/About-Menta l-Illness/Treatme nts/Mental-Health -Medications educated on all medications, benefits, side effects [...] effects including loss of libido, increased suicidal thoughts/behavior s in children and young adults, and serotonin syndrome. Medication Management and Follow-Up - Plan: - Schedule follow-up appointments every 1-3 months to monitor the patient's response to the medication regimen. - Reinforce the importance of avoiding recreational drug use due to potential neurotoxicity and interactions with prescribed medications. 10/20/2024 History of recent change in lifestyle (ICD-10 - Z78.9) 1. mcc - adjustment surgery 04/16 pain management discuss therapy HAMILTON - will consider if need in near future, not interested at this time. 2. major depression- Wellbutrin SR 150 mg twice a day- PCP fills Start Duloxetine 30mg x1 week, then increase to 60mg daily in the morning 3. Anxiety- Vistaril 25 mg twice a day- PCP fills patient reported having anxiety mainly at night 4. Insomnia related to anxiety Trazodone 50 mg at bedtime- helping sleep educated on rx http_s://www.nava .org/About-Mental -Illness/Mental-H ealth-Conditions http_s://psychcen [employer].com/depressi on/the-cognitive- gmydksep-sm-sjada ssion#treatments http__s://www.nim .nih.gov/health/ topics/mental-hea [facility]-medications http__s://www.nam i.org/About-Menta l-Illness/Treatme nts/Mental-Health -Medications educated on all medications, benefits, side effects [...] effects including loss of libido, increased suicidal thoughts/behavior s in children and young adults, and serotonin syndrome. Medication Management and Follow-Up - Plan: - Schedule follow-up appointments every 1-3 months to monitor the patient's response to the medication regimen. - Reinforce the importance of avoiding recreational drug use due to potential neurotoxicity and interactions with prescribed medications. 11/20/2024 ADRIAN (generalized anxiety disorder) (ICD-10 - F41.1) Generalized Anxiety Disorder: Care Instructions material was published, Learning About Generalized Anxiety Disorder material was published, Learning About Anxiety Disorders material was published, Learning About Generalized Anxiety Disorder material was published, Generalized Anxiety Disorder: Care Instructions material was published, Learning About Anxiety Disorders material was published 1. mcc - adjustment surgery 04/16 pain management discuss therapy HAMILTON - will consider if need in near future, not interested at this time. 2. major depression- Wellbutrin SR 150 mg twice a day- PCP fills 60mg daily in the morning 3. Anxiety- Vistaril 25 mg twice a day- PCP fills patient reported having anxiety mainly at night 4. Insomnia related to anxiety Trazodone 50 mg at bedtime- helping sleep educated on rx http_s://www.nava .org/About-Mental -Illness/Mental-H ealth-Conditions http_s://psychOpenAgent.com.au.CDC Software/depressi on/the-cognitive- ykwxxnfu-hp-hlvob ssion#treatments http__s://www.nim .nih.gov/health/ topics/mental-hea lth-medications http__s://www.nam i.org/About-Menta l-Illness/Treatme nts/Mental-Health -Medications educated on all medications, benefits, side effects [...] effects including loss of libido, increased suicidal thoughts/behavior s in children and young adults, and serotonin syndrome. Medication Management and Follow-Up - Plan: - Schedule follow-up appointments every 1-3 months to monitor the patient's response to the medication regimen. - Reinforce the importance of avoiding recreational drug use due to potential neurotoxicity and interactions with prescribed medications. 10/20/2024 Insomnia related to another mental disorder (ICD-10 - F51.05) 1. mcc - adjustment surgery 04/16 pain management discuss therapy HAMILTON - will consider if need in near future, not interested at this time. 2. major depression- Wellbutrin SR 150 mg twice a day- PCP fills Start Duloxetine 30mg x1 week, then increase to 60mg daily in the morning 3. Anxiety- Vistaril 25 mg twice a day- PCP fills patient reported having anxiety mainly at night 4. Insomnia related to anxiety Trazodone 50 mg at bedtime- helping sleep educated on rx http_s://www.nava .org/About-Mental -Illness/Mental-H ealth-Conditions http_s://psychHabitissimon [employer]/depressi on/the-cognitive- lfpdtxel-pt-xesul ssion#treatments http__s://www.nim h.nih.gov/health/ topics/mental-hea lth-medications http__s://www.nam i.org/About-Menta l-Illness/Treatme nts/Mental-Health -Medications educated on all medications, benefits, side effects [...] effects including loss of libido, increased suicidal thoughts/behavior s in children and young adults, and serotonin syndrome. Medication Management and Follow-Up - Plan: - Schedule follow-up appointments every 1-3 months to monitor the patient's response to the medication regimen. - Reinforce the importance of avoiding recreational drug use due to potential neurotoxicity and interactions with prescribed medications. 11/20/2024 History of recent change in lifestyle (ICD-10 - Z78.9) 1. mcc - adjustment surgery 04/16 pain management discuss therapy HAMILTON - will consider if need in near future, not interested at this time. 2. major depression- Wellbutrin SR 150 mg twice a day- PCP fills 60mg daily in the morning 3. Anxiety- Vistaril 25 mg twice a day- PCP fills patient reported having anxiety mainly at night 4. Insomnia related to anxiety Trazodone 50 mg at bedtime- helping sleep educated on rx http_s://www.nava .org/About-Mental -Illness/Mental-H ealth-Conditions http_s://Kutoto/depressi on/the-cognitive- vjiaaprz-ug-lrxfd ssion#treatments http__s://www.nim h.nih.gov/health/ topics/mental-hea lt-medications http__s://www.nam i.org/About-Menta l-Illness/Treatme nts/Mental-Health -Medications educated on all medications, benefits, side effects [...] effects including loss of libido, increased suicidal thoughts/behavior s in children and young adults, and serotonin syndrome. Medication Management and Follow-Up - Plan: - Schedule follow-up appointments every 1-3 months to monitor the patient's response to the medication regimen. - Reinforce the importance of avoiding recreational drug use due to potential neurotoxicity and interactions with prescribed medications. 11/20/2024 Insomnia related to another mental disorder (ICD-10 - F51.05) 1. mcc - adjustment surgery 04/16 pain management discuss therapy HAMILTON - will consider if need in near future, not interested at this time. 2. major depression- Wellbutrin SR 150 mg twice a day- PCP fills 60mg daily in the morning 3. Anxiety- Vistaril 25 mg twice a day- PCP fills patient reported having anxiety mainly at night 4. Insomnia related to anxiety Trazodone 50 mg at bedtime- helping sleep educated on rx http_s://www.nava .org/About-Mental -Illness/Mental-H ealth-Conditions http_s://psych[employer]X [employer]/depressi on/the-cognitive- gupvaxsm-nn-almgo ssion#treatments http__s://www.nim .nih.gov/health/ topics/mental-hea lth-medications http__s://www.nam i.org/About-Menta l-Illness/Treatme nts/Mental-Health -Medications educated on all medications, benefits, side effects [...] effects including loss of libido, increased suicidal thoughts/behavior s in children and young adults, and serotonin syndrome. Medication Management and Follow-Up - Plan: - Schedule follow-up appointments every 1-3 months to monitor the patient's response to the medication regimen. - Reinforce the importance of avoiding recreational drug use due to potential neurotoxicity and interactions with prescribed medications. 10/20/2024 Encounter for screening for cardiovascular disorders (ICD-10 - Z13.6) 1. mcc - adjustment surgery 04/16 pain management discuss therapy HAIMLTON - will consider if need in near future, not interested at this time. 2. major depression- Wellbutrin SR 150 mg twice a day- PCP fills Start Duloxetine 30mg x1 week, then increase to 60mg daily in the morning 3. Anxiety- Vistaril 25 mg twice a day- PCP fills patient reported having anxiety mainly at night 4. Insomnia related to anxiety Trazodone 50 mg at bedtime- helping sleep educated on rx http_s://www.nava .org/About-Mental -Illness/Mental-H ealth-Conditions http_s://psychcen [employer].com/depressi on/the-cognitive- tibsvcdf-or-mxoqr ssion#treatments http__s://www.nim h.nih.gov/health/ topics/mental-hea lth-medications http__s://www.nam i.org/About-Menta l-Illness/Treatme nts/Mental-Health -Medications educated on all medications, benefits, side effects [...] effects including loss of libido, increased suicidal thoughts/behavior s in children and young adults, and serotonin syndrome. Medication Management and Follow-Up - Plan: - Schedule follow-up appointments every 1-3 months to monitor the patient's response to the medication regimen. - Reinforce the importance of avoiding recreational drug use due to potential neurotoxicity and interactions with prescribed medications. 10/20/2024 Other Duloxetine material was published, Trazodone material was published 1. mcc - adjustment surgery 04/16 pain management discuss therapy HAMILTON - will consider if need in near future, not interested at this time. 2. major depression- Wellbutrin SR 150 mg twice a day- PCP fills Start Duloxetine 30mg x1 week, then increase to 60mg daily in the morning 3. Anxiety- Vistaril 25 mg twice a day- PCP fills patient reported having anxiety mainly at night 4. Insomnia related to anxiety Trazodone 50 mg at bedtime- helping sleep educated on rx http_s://www.nava .org/About-Mental -Illness/Mental-H ealth-Conditions http_s://psychcen [employer].com/depressi on/the-cognitive- lhkqfouk-kk-chwqj ssion#treatments http__s://www.nim h.nih.gov/health/ topics/mental-hea lth-medications http__s://www.nam i.org/About-Menta l-Illness/Treatme nts/Mental-Health -Medications educated on all medications, benefits, side effects [...] effects including loss of libido, increased suicidal thoughts/behavior s in children and young adults, and serotonin syndrome. Medication Management and Follow-Up - Plan: - Schedule follow-up appointments every 1-3 months to monitor the patient's response to the medication regimen. - Reinforce the importance of avoiding recreational drug use due to potential neurotoxicity and interactions with prescribed medications. Plan Of Treatment Next Appt Details Provider Name:Kenzie Garnett , 02/19/2025 09:30:00 AM, [address] [facility] [address], [facility] [address], [place], [address], Insurance Providers Payer Name Payer Address Payer Phone Subscriber Number Group Number Insured Name Patient Relationship to Insured Coverage Start Date Coverage End Date [employer] [address] [place] [address] [id number] Marc Haddad Self - patient is the [...]
--- OUTSIDE RECORDS SUMMARY | 2025-01-17 07:41 | XMS_ITS | Clinical Summary ---
Author Organization [facility] Address [address] [place] [address] Care Team Providers Care General Dentist/Owner Name Role Phone Daniel Bradley DO Primary Care Provider [phone] Ashley Gonsales MD Unavailable [phone] Allergies Active Allergy Reactions Criticality Noted Date Comments Cephalexin Nausea only Low 10/05/2023 Levofloxacin Nausea only Low 10/05/2023 Semaglutide Nausea & Vomiting Low 11/22/2023 Medications hydrOXYzine (ATARAX) 25 mg tablet Take 1 tablet (25 mg total) by mouth 2 (two) times a day 1 Active simvastatin (ZOCOR) 20 mg tablet Take 1 tablet (20 mg total) by mouth nightly 1 Active Accu-Chek Guide test strips strip USE TO CHECK BLOOD SUGARS ONCE DAILY 3 Active Accu-Chek Guide Me Glucose Mtr misc USE TO CHECK BLOOD SUGAR ONCE DAILY 3 Active buPROPion SR (WELLBUTRIN SR) 150 mg 12 hr tablet Take 1 tablet (150 mg total) by mouth 2 (two) times a day 3 Active Accu-Chek Softclix Lancets lancets USE TO CHECK BLOOD SUGAR ONCE DAILY 3 Active metFORMIN (GLUCOPHAGE) 1,000 mg tablet Take 1 tablet (1,000 mg total) by mouth daily with breakfast 3 Active ondansetron ODT (ZOFRAN-ODT) 4 mg disintegrating tablet Take 1 tablet (4 mg total) by mouth every 8 (eight) hours as needed for nausea or vomiting 20 tablet 1 4 Active cyclobenzaprine (FLEXERIL) 10 mg tablet TAKE 1 TABLET BY MOUTH EVERY DAY NIGHTLY NEEDED FOR MUSCLE SPASMS 30 tablet 1 4 Active multivitamin with minerals tablet Take 1 tablet by mouth daily Active acidophilus-pectin , citrus 100 million cell-10 mg capsule Take 1 capsule by mouth daily Trade name: Align Active pantoprazole DR (PROTONIX) 40 mg EC tablet Take 1 tablet (40 mg total) by mouth every 12 (twelve) hours 4 Active vitamin B-12 1,000 mcg tablet Take 1 tablet (1,000 mcg total) by mouth every morning 4 Active prochlorperazine (COMPAZINE) 5 mg tablet Take 1 tablet (5 mg total) by mouth as needed 4 Active lisinopril-hydroCH LOROthiazide (ZESTORETIC) 20-25 mg per tabletIndications: hypertension Take 1 tablet by mouth daily Active herbal drugs tablet Take 1 tablet by mouth daily Active omeprazole OTC (PriLOSEC OTC) 20 mg EC tablet Take 1 tablet (20 mg total) by mouth daily Active Xarelto 20 mg tablet Take 1 tablet (20 mg total) by mouth daily with dinner 5 Active tiZANidine (ZANAFLEX) 2 mg tablet Oral for 20 Days Active alpha lipoic acid 600 mg capsule 5 Active Active Problems Problem Noted Date Diagnosed Date Status post lumbar spine vish lorenza for decompression of spinal cord 07/07/2024 Diabetic neuropathy associat ed with type 2 diabetes mellitus 07/07/2024 Numbness 06/22/2024 Lumbar stenosis with neurogenic claudication Bilateral foot-drop 02/11/2024 Encounters Date Type Department Care Team Description 12/04/2024 Telephone [facility] [address] [address], [address] [place] [id number] Papa Nixon MD PhD 11/23/2024 9:13 AM CDT - 11/23/2024 11:59 PM CDT Hospital Encounter [facility] at [address], [address] [place], [place] [address] Papa Nixon MD PhD Diabetic neuropathy associated with type 2 diabetes mellitus (HCC) (Primary Dx) Discharge Disposition: Discharge to home or self care 11/23/2024 Telephone [facility] at [address], [address] [place], [place] [address] Papa Nixon MD PhD 11/22/2024 Telephone [facility] at [address], [address] [place], [place] [address] Papa Nixon MD PhD pre call 10/27/2024 Telephone [facility] at [address], [address] [place], [place] [address] Papa Nixon MD PhD QUTENZA 10/27/2024 Telephone [facility] at [address], [address] [place], [place] [address] Papa Nixon MD PhD Qunae auth from Last 3 Months Surgical History Surgery Date Site/Laterality Comments TONSILLECTOMY 05/24/1969 - 05/23/1970 FOOT SURGERY 06/24/2023 - 07/22/2023 Right Big toe partial amputation COLONOSCOPY 12/23/2023 - 01/22/2024 ESOPHAGOGASTRODUODENOSCOPY 12/23/2023 - 01/22/2024 N/A Medical History Medical History Date Comments Hypertension History of blood clots PE 7 yrs ago Hypercholesteremia Neuropathy in diabetes Obesity GERD (gastroesophageal reflux disease) ADHD (attention deficit hype ractivity disorder) Type 2 diabetes mellitus Foot drop, bilateral states slig htly uses cane prn Claustrophobia states when put anesthesia mask on DVT (deep venous thrombosis) Varicose vein of leg right leg w [...] you have a drink containing alcohol? Never 08/30/2024 Q2: How many drinks containi ng alcohol do you have on a typical day when you are drinking? Patient does not drink Q3: How often do you have si x or more drinks on one occasion? Never 08/30/2024 Personal Safety Answer Date Recorded Have you ever been in or are you currently in a harmful physical or emotional relationship or is someone making you feel afraid or unsafe? 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 Gender Identity Not on file Sexual Orientation Not on file Obstetrics History Last Filed Vital Signs Vital Sign Reading Time Taken Comments Blood Pressure 129/72 11/23/2024 10:10 AM CDT Pulse 103 11/23/2024 10:10 AM CDT Temperature 36.2 C (97.1 F) 11/23/2024 9:22 AM CDT Respiratory Rate 16 11/23/2024 10:10 AM CDT Oxygen Saturation 91% 11/23/2024 10:10 AM CDT Inhaled Oxygen Concentration - - Weight 162.4 kg (358 lb) 11/23/2024 9:22 AM CDT Height 190.5 cm (6' 3) 11/23/2024 9:22 AM CDT Body Mass Index 44.75 11/23/2024 9:22 AM CDT Plan of Treatment Health Maintenance Due Date [...] 08/30/1982 Zoster Vaccine (1 of 2) 08/30/2013 Hemoglobin A1C 08/16/2024 02/17/2024, 11/23/2023 Influenza Vaccine (#1) 2025 eGFR 02/16/2025 02/17/2024, 11/23/2023 Procedures Procedure Name Priority Date/Time Associated Diagnosis Comments EGFR Routine 02/17/2024 12:47 PM CDT Lumbar stenosis with neurogenic claudication Bilateral foot-drop HEMOGLOBIN A1C Routine 02/17/2024 12:47 PM CDT Lumbar stenosis with neurogenic claudication Bilateral foot-drop from Last 3 Months or Most Recently Relevant to Health Maintenance Results * eGFR (02/17/2024 12:47 PM CDT) eGFR [...] ORDERABLES Fin al Result Performing Organization Address [facility] Co de Phone Number KEL [address] [place] [address] * Hemoglobin A1c (02/17/2024 12:47 PM CDT) [facility] Signature Hgb A1C 5.1 4.0 - 5.6 % Estimated Average Glucose 100 mg/dL KATARINAAR Comment: The ADA recommends reporting an estimated Average Glucose (eAG) with all Hemoglobin A1c results using the equation derived from a study of 507 normal and diabetic adults. Minority populations were underrepresented and children were not included. (Diabetes Care 31:5347-5370, 2008). The eAG is not equivalent to a fasting glucose. Blood 02/17/2024 12:4 7 PM CDT 02/17/2024 12:54 PM CDT Jonathon Dee MD LAB BLOOD ORDERABLES Fin al Result Performing Organization Address [facility] de Phone Number KEL [address] [address] from Last 3 Months or Most Recently Relevant to Health Maintenance Insurance [facility] [id number] [facility] [id number] [facility] [id number] Care Teams General Dentist/Owner Relationship Specialty Start Date End Date Daniel Bradley DO PCP - General Internal Medicine 10/16/20 Ashley Gonsales MD Consulting Physician Family Medicine 02/02/24
--- OUTSIDE RECORDS SUMMARY | 2025-01-17 07:41 | XMS_ITS | Encounter Summary ---
Author Organization [facility] Healthcare Address [address] [place] [address] Care Team Providers Care Lens Inserter Name Role Phone Daniel Bradley DO Primary Care Provider + [phone] Ashley Gonsales MD Unavailable + [phone] Encounter Details Date Type Department Care Team (Late st Contact Info) Description 11/04/2020 Telephone [facility] [address] [place] [id number] Mariola Culver, CHARLY Social History Tobacco Use Types Packs/Day Years Used Date Smoking Tobacco: Never Sex and Gender Information Value Date Recorded Sex Assigned at Not on file 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
--- NOTE | 2025-01-19 20:29 | P.SLEEP_ITS ---
Sleep Study - Home Unattended Date of Study: 01/17/25 Ordering Provider: Phoebe Garibay NP Interpreting Provider: Lorna Parry MD Home Sleep Study Type: Watch MAXIM Height: 1.91 m Weight: 156.489 kg Body Mass Index: 43.1 Neck Circumference (inches): 23.25 [place]: 7 Reason for Sleep Study Excessive daytime sleepiness Sleep History Marc Haddad is a 59-year-old man with diabetes, hypertension and depression. He never awakens from sleep feeling short of breath. He never wakes at night with heartburn, belching or coughing.??He never snores, never snores loudly enough that others complain. He never has trouble sleeping when he has a cold. He never wakes up gasping for breath during the night. He never has breathing problems at night witnessed by others. He never sweats excessively at night. He never notices his heart pounding or beating irregularly during the night. He occasionally falls asleep during the day. He rarely falls asleep involuntarily, rarely falls asleep while driving. He never experiences loss of muscle tone with strong emotion. He never has daytime difficulty at work due to excessive sleepiness. He never feels paralyzed on waking or falling asleep. He occasionally experiences vivid dreams upon waking or falling asleep. He never feels afraid of going to sleep. He occasionally has nightmares. He frequently recalls his dreams. He occasionally has thoughts racing through his mind. He rarely feels sad or depressed. He rarely feels anxiety. He never notices parts of his body jerk. He never kicks during the night. He never feels crawling or aching feelings in his legs. He never feels leg pain at night. He never has morning jaw pain, never grinds his teeth at night. He never feels bothered by pain during the day, never awakened by pain during the night. He rarely wakes up feeling stiff in the morning, and he never wakes feeling sore or achy. He never awakens with pain in his neck, spine, or joints. Normal bedtime is 11:00 p.m., falling asleep quickly, waking 3 times during the night to urinate. Wake time is 10:00 a.m.. He typically gets between 7 and 10 hours of sleep per night. Sometimes, he takes naps in the day, and a short nap lasting 10-15 minutes may be refreshing. Habits:??Tobacco: never Caffeine: none Alcohol: none Recreational substances: none PMF Past Medical History Medical History Portal venous hypertension noted on CT on 01/07/24 Cirrhosis Gastroesophageal reflux disease Chronic anticoagulation Pulmonary emboli Type 2 diabetes mellitus Morbid obesity due to excess calories Factor 5 Leiden mutation, heterozygous Essential (primary) hypertension Surgical History Surgical History Previous back surgery History of amputation of great toe Right 2023 History of tonsillectomy Family History Family History Father Pharyngeal malignant neoplasm Mother Hypertension Carcinoma of colon Chronic heart failure not affecting current episode of care Osteoarthritis Social History Social History Social History: Surrogate medical decision maker: Cuate Bolanos, friend. Code status: Full code. Pt retired 02/22/2024 Smoking status: Never smoker Alcohol intake: former Drinks per week: 2 Alcohol use details: socially- [place] Pt stopped drinking in 12/2023 Substance use: never Substance use type: does not use Do You Feel Safe in your Home?: Yes Lack of Transportation: No Lack of Food: Never True Current Housing: I Have Housing Concerned About Future Housing: No Difficulty Paying Gas/Electric Bills: No Difficulty Paying for Meds: No Currently Unemployed: No Education: Master's Degree or Higher Difficulty w/ Childcare or Family Care: No Additional living arrangements comments: Lives in [place]. 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 Gender identity (if verbalized by the patient): Male Spiritual care concerns: No Medications Home Medications ?Medication ?Instructions ?Recorded ?Confirmed ?Type aspirin 81 mg tablet,delayed 81 mg PO DAILY 05/01/19 0 12/29/24 History release (Adult Aspirin Regimen) multivitamin,[id number] 1 tablet PO DAILY 12/29/24 History (Complete Multivitamin tablet) prochlorperazine maleate 5 mg 5 mg PO Q8H PRN nausea a nd 12/17/23 12/29/24 Rx tablet (Compazine) vomiting #20 tabs cyanocobalamin (vitamin B-12) 1,000 mcg PO QAM #30 tab s 01/10/24 12/29/24 Rx 1,000 mcg tablet (Vitamin B-12) lactobacillus combo no.6 4 billion cell PO 01/27/24 History cell tablet naproxen sodium 220 mg capsule 220 mg PO BID PRN 01/2612/29/24 History lancets (Accu-Chek Softclix #100 ea 02/04/24 12/29/24 Rx Lancets) trazodone 50 mg tablet 50 mg PO QHS PRN 08/17/24 History simvastatin 20 mg tablet See Rx Instructions .Route 0 08/25/24 12/29/24 Rx .COMPLEX #90 tabs bupropion HCl 150 mg tablet,12 hr 150 mg PO BID #180 t abs 08/29/24 12/29/24 Rx sustained-release rivaroxaban 20 mg tablet (Xarelto) See Rx Instructions .Route 11/28/24 12/29/24 Rx .COMPLEX #90 tabs hydroxyzine HCl 25 mg tablet See Rx Instructions .Rout e 12/04/24 12/29/24 Rx .COMPLEX #180 tabs alpha lipoic acid 600 mg capsule 1,200 mg PO DAILY 01/1512/29/24 History omeprazole 20 mg tablet,delayed 20 mg PO DAILY 5 12/29/24 History release tirzepatide 10 mg/0.5 mL 10 mg (0.5 mL) subcut WEEKLY #2 mL 01/02/25 Rx subcutaneous pen injector (Chadd) lisinopril 20 1 tablet PO DAILY #90 tabs 0 01/15/25 Rx mg-hydrochlorothiazide 12.5 mg tablet metformin 1,000 mg tablet 1,000 mg PO BID #180 tabs Rx Sleep Procedure The sleep study was completed using [id number] a technically adequate device with seven channels: peripheral arterial tone, actigraphy, body position, snore, respiratory movement, pulse oximetry, sleep staging, and heart rate. Prior to using the device, the patient received verbal and written instructions for its application and was provided with the help desk phone number for additional telephonic instruction with 24-hour availability of qualified personnel to answer questions. Sleep Architecture The total recording time is 7 hours 55 minutes. The total sleep time is 6 hours 59 minutes. Sleep latency is 33 minutes. REM latency is 278 minutes, prolonged. The patient had 4 episodes of waking. Sleep architecture shows 31.4% deep sleep, 43.6% light sleep, and 25% stage REM. The patient spent no time in the supine position, the entire night was spent in the prone position. Respiratory Analysis The overall AHI is 57.1. The central AHI is not able to be determined. The REM AHI was 57.3. The the information gathered during this home sleep test was not able to be used to determine Pawel-Stephenson respiration. Oximetry Data The oxygen desaturation index is 53.6. The mean saturation is 78%, the lowest saturation is not able to be determined. The patient spent 179.2 minutes, 42.7% of the sleep time, below 88%. Snoring Profile Snoring was present, average intensity 40 dB. The patient snored above 45 dB for 1.7 minutes, 0.4% of the sleep time. Cardiac Profile The average pulse is 95 beats per minute, the lowest pulse is 57beats per minute, and the highest pulse is beats per minute. The cardiac rhythm analysis in sleep showed suspected atrial fibrillation for 43 seconds however when the data shows suspected AFib less than 60 seconds, this may represent artifact. Assessment and Plan Assessment and Plan (1) Obstructive sleep apnea: Code(s): G47.33 - Obstructive sleep apnea (adult) (pediatric) Status: Acute Assessment and Plan: This home sleep test using WatchPat on 01/17/2025 shows severe obstructive sleep apnea, the apnea-hypopnea index is 57.1 with the mean saturation 78% and 179.2 minutes spent below 88%. The first part of the study was not interpretable due to the pulse oximeter not providing a reliable waveform. The data did not allow to determine whether not the patient had central apneas or Pawel-Stephenson respirations. Due to the severity of his apnea and hypoxemia, this patient should have a dedicated CPAP titration in the sleep lab. He is not a candidate for auto PAP as he may require supplemental oxygen. He may also have central sleep apnea that was not appreciated on his home sleep test. The patient should be strongly cautioned not to have a nap on the day of the study. He should have with him a sedative to use, if needed, to get to sleep and stay asleep. Sometimes sleeping in a novel location is difficult especially with the initiation of CPAP. Consider Lunesta 2 mg or 3 mg, or Ambien 5 mg to 10 mg. his home medication list shows that he takes trazodone 50 mg at bedtime. His sleep latency in this home sleep test was 33 minutes which is prolonged. I recommend that he has a different sedative for his titration. His entire night was spent in the prone position. in the sleep lab, he will be asked to sleep on his back, and on both left and right sides to evaluate all stages of sleep in different body positions. He needs to know this before he arrives. BMI is 43. Weight management is advised. Clinical data suggests that weight loss of 10% can reduce the severity of respiratory events and snoring and improve AHI by as much as 25%. Data The data obtained during this sleep study is adequate for interpretation. Certification This sleep study has been reviewed by a board certified sleep medicine physician.
[2025-01-23 13:34] VITALS: BMI 43.1
== END 2025-01-18 11:46 | disposition home or self-care (01) ==
LOC: ANHCSM 07:38
PROVIDERS: PCP Nurse Practitioner; Visit Provider Nurse Practitioner
DX: G56.32 Lesion of radial nerve, left upper limb (principal); G56.22 Lesion of ulnar nerve, left upper limb
CPT/HCPCS: 95800

== ENCOUNTER 2025-02-15 09:16 | Outpatient (CLI) | payer OTHER, SELFPAY ==
--- NOTE | ~2025-02-15 | US_ITS ---
ULTRASOUND ABDOMEN LIMITED (RIGHT UPPER QUADRANT) Clinical History: K74.60 - Unspecified cirrhosis of liver Comparison: Ultrasound 08/07/2024 Technique: Right upper quadrant sonography Findings: Liver: Nodular contour. Enlarged. Echogenic. No intrahepatic biliary ductal dilatation. Normal hepatopedal flow main portal vein. No discrete hepatic mass identified Common Duct: Normal caliber. 6 mm. Gallbladder: No stones. No wall thickening. No pericholecystic fluid. Pancreas: Visualized portions unremarkable. Retrohepatic IVC: Unremarkable. IMPRESSION: 1. Cirrhosis, steatosis, hepatomegaly. 2. No discrete hepatic mass identified. Reviewed, dictated and finalized at location R.
== END 2025-02-15 09:17 | disposition home or self-care (01) ==
PROVIDERS: PCP Nurse Practitioner; Visit Provider Nurse Practitioner Family
DX: K74.60 Unspecified cirrhosis of liver (principal)
CPT/HCPCS: 76705